=== PATIENT | female | born 1970 | race Caucasian/White ===

== ENCOUNTER → 2017-09-17 07:16 | Outpatient (CLI) | payer BC, SELFPAY ==
[2017-09-17 08:10] LABS: Absolute Lymphocyte Count 1.75 X10^3/ul (0.83-4.51); Absolute Neutrophil Count 1.8 X10^3/uL (2.0-7.7); Basophil# 0.07 X10^3/uL; Basophil% 1.5 % (0-1); Eosinophil# 0.59 X10^3/uL; Eosinophils% 12.6 % (0-5); Hematocrit 41.6 % (37-47); Lymphocyte # 1.75 X10^3/ul (4.0); Lymphocyte % 37.5 % (19-41); Mean Corp Hgb Conc 33.7 g/gl (32-36); Mean Corpuscular Hgb 29.5 pg (27.0-32.0); Mean Corpuscular Volume 87.8 fL (81-99); Mean Platelet Vol. 9.7 fl (6.2-12.0); Monocyte# 0.49 X10^3/uL; Monocyte% 10.5 % (0-10); Neutrophil # 1.76 X10^3/uL (2.7-7.7); Neutrophil % 37.7 % (47-70); POSITIVE COUNT NO; POSITIVE DIFFERENTIAL NO; POSITIVE MORPHOLOGY NO; Platelet Count 288 K/mm3 (150-450); RBC Distribution Width CV 12.5 % (11.6-14.6); RBC Distribution Width SD 40.2 fl (35.1-43.9); Red Blood Count 4.74 M/mm3 (4.2-5.4); White Blood Count 4.7 K/mm3 (4.4-11.0)
[2017-09-17 08:39] LABS: ALB/GLOB Ratio 0.9 RATIO (0.9-2.4); AST(SGOT) 11 U/L (15-37); Alanine Aminotransfer ALT/SGPT 22 U/L (12-78); Albumin, Serum 3.6 g/dL (3.4-5.0); Alkaline Phosphatase 73 U/L (45-117); Anion Gap 7 (5-15); BUN 14 mg/dL (7-18); BUN/Creat Ratio 18.2 RATIO (10-20); Calcium,Total 8.5 mg/dL (8.5-10.1); Chloride 102 mmol/L (98-107); Creatinine, Serum 0.77 mg/dL (0.55-1.02); EST Glomerular Filtration Rate 85 mL/min (>60); Est Glom Filt Rate - Afr Amer 103 mL/min (>60); Globulin 3.8 g/dL (2.2-4.2); Glucose 95 mg/dL (70-110); Potassium 3.9 mmol/L (3.5-5.1); Protein, Total 7.4 g/dL (6.4-8.2); Sodium Level 138 mmol/L (136-145)
[2017-09-17 08:46] LABS: Carbamazepine (Tegretol) 7.4 ug/mL (4.0-12.0)
== END ==
PROVIDERS: Family Provider Family Medicine; PCP Family Medicine; Visit Provider Psychiatry & Neurology Neurology
DX: G40.409 Other generalized epilepsy and epileptic syndromes, not intractable, without status epilepticus (principal)
CPT/HCPCS: 36415; 80053; 80156; 85025

== ENCOUNTER → 2017-09-27 16:08 | Outpatient (CLI) | payer BC, SELFPAY ==
[2017-09-30 14:46] LABS: HPV Reflexed? NOT INDICATED
== END ==
PROVIDERS: Family Provider Family Medicine; PCP Family Medicine; Visit Provider Family Medicine
DX: Z01.419 Encounter for gynecological examination (general) (routine) without abnormal findings (principal)
CPT/HCPCS: 88175; G0145

== ENCOUNTER → 2017-11-10 11:57 | Outpatient (CLI) | payer BC, SELFPAY ==
--- NOTE | 2017-11-10 11:59 | HPBI_ITS ---
MAMMOGRAPHY - BILATERAL SCREENING 3-D RAFAELA SYNTHESIS REASON FOR EXAM: Female, 47 years old. Bilateral Screening 3-D tomosynthesis PERTINENT HISTORY: No significant family history. TECHNIQUE: 2-D mammograms and 3-D Rafaela synthesis of the breast (s) were performed. CAD was performed. COMPARISON: 09/21/2016 FINDINGS: The breast composition is heterogeneously dense that can obscure small breast masses. Scattered benign calcifications are seen. No dense spiculated masses or suspicious microcalcifications are identified. No architectural distortion is identified. There is no skin thickening or retraction. There has been no significant change since the prior study. HPBI/SCREENING MAMM (CAD), BILAT IMPRESSION: No mammographic signs of malignancy. Routine yearly mammograms recommended. ASSESSMENT CATEGORY: BIRADS Category 2: Benign. A letter regarding these results will be sent to the patient by the facility within 30 days. FOLLOW UP RECOMMENDATION: Yearly follow up mammogram recommended. (A) Approximately 10% of breast cancers are not detected by mammography. A normal mammogram should not delay biopsy of a clinically suspicious abnormality. Electronically Signed: Gilberto Shultz MD at 7:53 EDT , Service support ,
== END ==
PROVIDERS: Family Provider Family Medicine; PCP Family Medicine; Visit Provider Family Medicine
DX: Z12.31 Encounter for screening mammogram for malignant neoplasm of breast (principal)
CPT/HCPCS: 77063; 77067

== ENCOUNTER → 2018-10-21 07:44 | Outpatient (CLI) | payer BC, SELFPAY ==
[2018-10-21 08:43] LABS: Absolute Neutrophil Count 2.3 X10^3/uL (2.0-7.7); Basophil# 0.06 X10^3/uL; Basophil% 1.2 % (0-1); Eosinophil# 0.46 X10^3/uL; Eosinophils% 9.2 % (0-5); Hematocrit 42.4 % (37-47); Lymphocyte % 34.1 % (19-41); Mean Platelet Vol. 9.9 fl (6.2-12.0); Monocyte# 0.48 X10^3/uL; Monocyte% 9.6 % (0-10); Neutrophil # 2.27 X10^3/uL (2.7-7.7); Neutrophil % 45.7 % (47-70); Platelet Count 308 K/mm3 (150-450); RBC Distribution Width CV 12.8 % (11.6-14.6); RBC Distribution Width SD 41.3 fl (35.1-43.9); Red Blood Count 4.82 M/mm3 (4.2-5.4)
[2018-10-21 08:45] LABS: POSITIVE COUNT NO; POSITIVE DIFFERENTIAL NO; POSITIVE MORPHOLOGY NO
[2018-10-21 08:53] LABS: Carbamazepine (Tegretol) 7.9 ug/mL (4.0-12.0)
[2018-10-21 09:05] LABS: AST(SGOT) 14 U/L (15-37); Alanine Aminotransfer ALT/SGPT 20 U/L (13-56); Albumin, Serum 3.5 g/dL (3.2-5.0); Alkaline Phosphatase 79 U/L (45-117); Anion Gap 8 (5-15); BUN 12 mg/dL (7-18); BUN/Creat Ratio 15.4 RATIO (10-20); Calcium,Total 8.4 mg/dL (8.5-10.1); Chloride 105 mmol/L (98-107); Creatinine, Serum 0.78 mg/dL (0.55-1.02); EST Glomerular Filtration Rate 83 mL/min (>60); Est Glom Filt Rate - Afr Amer 101 mL/min (>60); Globulin 3.5 g/dL (2.2-4.2); Glucose 95 mg/dL (74-106); Potassium 3.9 mmol/L (3.5-5.1); Sodium Level 139 mmol/L (136-145)
== END ==
PROVIDERS: Family Provider Family Medicine; PCP Family Medicine; Referring Provider Psychiatry & Neurology Neurology; Visit Provider Psychiatry & Neurology Neurology
DX: G40.309 Generalized idiopathic epilepsy and epileptic syndromes, not intractable, without status epilepticus (principal)
CPT/HCPCS: 36415; 80053; 80156; 85025

== ENCOUNTER → 2018-12-15 12:34 | Outpatient (CLI) | payer BC, SELFPAY ==
--- NOTE | 2018-12-15 12:37 | BI_ITS ---
MAMMOGRAPHY - BILATERAL SCREENING 3-D TOMOSYNTHESIS REASON FOR EXAM: Female, 48 years old. Bilateral Screening 3-D tomosynthesis PERTINENT HISTORY: No significant family history. TECHNIQUE: 2-D mammograms and 3-D Tomosynthesis of the breast (s) were performed. CAD was performed. COMPARISON: 11/10/2017 FINDINGS: The breast composition is composed of scattered fibroglandular density. Scattered benign calcifications are seen. No dense spiculated masses or suspicious microcalcifications are identified. No architectural distortion is identified. There is no skin thickening or retraction. There has been no significant change since the prior study. BI/SCREENING MAMM (CAD), BILAT IMPRESSION: No mammographic signs of malignancy. Routine yearly mammograms recommended. ASSESSMENT CATEGORY: BIRADS Category 2: Benign. A letter regarding these results will be sent to the patient by the facility within 30 days. FOLLOW UP RECOMMENDATION: Yearly follow up mammogram recommended. (A) Approximately 10% of breast cancers are not detected by mammography. A normal mammogram should not delay biopsy of a clinically suspicious abnormality. Electronically Signed: Gilberto Shultz MD at 14:01 EDT , Service support ,
== END ==
PROVIDERS: Family Provider Family Medicine; PCP Family Medicine; Referring Provider Family Medicine; Visit Provider Family Medicine
DX: Z12.31 Encounter for screening mammogram for malignant neoplasm of breast (principal)
CPT/HCPCS: 77063; 77067

== ENCOUNTER → 2019-01-29 15:37 | Outpatient (CLI) | payer BC, SELFPAY ==
--- NOTE | 2019-01-26 10:40 | COLBX_PTH ---
PATIENT: DUNCAN COY LOC: [facility] U#:[id number] AGE/SX: 54/F ROOM: RE01/29/[address]: Dr. Greg Deng MD : 1970 BED: DIS: SPEC #: [id number] RECD: 01/29/19 15:28 STATUS: LINDSEY CHIDI #: [id number] MELIDA: 01/26/19 10:[address]: Greg Deng DEPT: SURGICAL PATHOLOGY RECD BY: Hema Davis ENTERED: 01/30/19 09:23 SP TYPE: COLON BX OTHR DR: Dr. Camilo Stover MD [facility] Tissues: Cecum, NOS Procedures: Surgery Specimen Level IV HEADER OPERATION: Colonoscopy with polypectomy PRE-OP DIAGNOSIS: Screening / polyp TISSUE SUBMITTED: Cecum polyp, rule out adenoma MICROSCOPIC DIAGNOSIS Cecal polyp, biopsy: Tubular adenoma. AM:yolette 01/31/19 MICROSCOPIC DESCRIPTION Slides are reviewed. GROSS DESCRIPTION Received in fixative is one container labeled with the patient's name and designated cecum polyp. The specimen consists of one irregular fragment of light freeman soft tissue that measures 0.5 x 0.3 x 0.2 cm. Also present in the container are multiple fragments of fecal material. The entire specimen is submitted in one cassette. / SJ:rg 01/30/19 TC:5 CPT: 65668
== END ==
PROVIDERS: Family Provider Family Medicine; PCP Family Medicine; Referring Provider Internal Medicine Gastroenterology; Visit Provider Internal Medicine Gastroenterology
DX: K63.5 Polyp of colon (principal)
CPT/HCPCS: 88305

== ENCOUNTER → 2019-09-29 07:15 | Outpatient (CLI) | payer BC, SELFPAY ==
[2019-09-29 07:57] LABS: Absolute Lymphocyte Count 1.86 X10^3/uL (0.83-4.51); Absolute Neutrophil Count 2.2 X10^3/uL (2.0-7.7); Basophil# 0.09 X10^3/uL; Basophil% 1.7 % (0-1); Eosinophil# 0.63 X10^3/uL; Eosinophils% 11.9 % (0-5); Hemoglobin 14.6 g/dL (12.0-15.0); Lymphocyte # 1.86 X10^3/ul (4.0); Lymphocyte % 35.2 % (19-41); Mean Corp Hgb Conc 33.2 g/dL (32-36); Mean Corpuscular Hgb 28.8 pg (27.0-32.0); Mean Corpuscular Volume 86.8 fL (81-99); Mean Platelet Vol. 9.4 fl (6.2-12.0); Monocyte% 9.5 % (0-10); NRBC Flagged by Analyzer 0 % (0-5); Neutrophil # 2.19 X10^3/uL (2.7-7.7); Neutrophil % 41.5 % (47-70); Platelet Count 304 K/mm3 (150-450); RBC Distribution Width CV 12.3 % (11.6-14.6); RBC Distribution Width SD 39.1 fl (35.1-43.9); Red Blood Count 5.07 M/mm3 (4.2-5.4); White Blood Count 5.3 K/mm3 (4.4-11.0)
[2019-09-29 08:29] LABS: Carbamazepine (Tegretol) 8.3 ug/mL (4.0-12.0)
[2019-09-29 08:30] LABS: ALB/GLOB Ratio 0.9 RATIO (0.9-2.4); AST(SGOT) 11 U/L (15-37); Alanine Aminotransfer ALT/SGPT 23 U/L (13-56); Albumin, Serum 3.7 g/dL (3.2-5.0); Alkaline Phosphatase 82 U/L (45-117); Anion Gap 2 (5-15); BUN 13 mg/dL (7-18); BUN/Creat Ratio 14.5 RATIO (10-20); Chloride 106 mmol/L (98-107); EST Glomerular Filtration Rate 71 mL/min (>60); Est Glom Filt Rate - Afr Amer 85 mL/min (>60); Globulin 3.9 g/dL (2.2-4.2); Glucose 91 mg/dL (74-106); Potassium 3.9 mmol/L (3.5-5.1); Protein, Total 7.6 g/dL (6.4-8.2); Sodium Level 137 mmol/L (136-145)
== END ==
PROVIDERS: PCP Family Medicine; Referring Provider Psychiatry & Neurology Neurology; Visit Provider Psychiatry & Neurology Neurology
DX: G40.309 Generalized idiopathic epilepsy and epileptic syndromes, not intractable, without status epilepticus (principal)
CPT/HCPCS: 36415; 80053; 80156; 85025

== ENCOUNTER → 2020-02-13 15:33 | Outpatient (CLI) | payer BC, SELFPAY ==
--- NOTE | 2020-02-13 15:36 | BI_ITS ---
MAMMOGRAPHY - BILATERAL SCREENING 3-D TOMOSYNTHESIS REASON FOR EXAM: Female, 49 years old. Routine screening PERTINENT HISTORY: FAM HX MOTHER AGE 65, PAT GMA -- NO SX -- BILAT SKIN TAGS ,MARKED. TECHNIQUE: 2-D mammograms and 3-D Tomosynthesis of the breast (s) were performed. CAD was performed. COMPARISON: 04/16/2019 FINDINGS: The breast composition is composed of scattered fibroglandular density. Scattered benign calcifications are seen. No dense spiculated masses or suspicious microcalcifications are identified. No architectural distortion is identified. There is no skin thickening or retraction. There has been no significant change since the prior study. BI/SCREEN MAMM (CAD) W/RAFAELA BILAT IMPRESSION: No mammographic signs of malignancy. Routine yearly mammograms recommended. ASSESSMENT CATEGORY: BIRADS Category 2: Benign. A letter regarding these results will be sent to the patient by the facility within 30 days. FOLLOW UP RECOMMENDATION: Yearly follow up mammogram recommended. (A) Approximately 10% of breast cancers are not detected by mammography. A normal mammogram should not delay biopsy of a clinically suspicious abnormality. Electronically Signed: Gilberto Shultz MD at 7:54 EDT , Service support ,
== END ==
PROVIDERS: PCP Family Medicine; Referring Provider Family Medicine; Visit Provider Family Medicine
DX: Z12.31 Encounter for screening mammogram for malignant neoplasm of breast (principal)
CPT/HCPCS: 77063; 77067

== ENCOUNTER → 2020-02-16 07:21 | Outpatient (CLI) | payer BC, SELFPAY ==
[2020-02-16 08:22] LABS: Cholesterol 283 mg/dL (200); High Density Lipoprotein 85 mg/dL; Triglycerides 69 mg/dL; Very Low Density Lipoprotein 14 mg/dL (5-40)
== END ==
PROVIDERS: PCP Family Medicine; Referring Provider Family Medicine; Visit Provider Family Medicine
DX: E78.00 Pure hypercholesterolemia, unspecified (principal)
CPT/HCPCS: 36415; 80061

== ENCOUNTER → 2020-07-18 14:43 | Outpatient (CLI) | payer BC, SELFPAY | PROVIDERS: PCP Family Medicine; Referring Provider Family Medicine; Visit Provider Family Medicine | DX: U07.1 COVID-19 (principal) | CPT/HCPCS: 87635; U0003 ==

== ENCOUNTER → 2020-09-27 07:31 | Outpatient (CLI) | payer OTHER, SELFPAY ==
[2020-09-27 08:03] LABS: Absolute Lymphocyte Count 1.91 X10^3/uL (0.83-4.51); Absolute Neutrophil Count 2.3 X10^3/uL (2.0-7.7); Basophil# 0.08 X10^3/uL; Basophil% 1.6 % (0-1); Eosinophils% 7.8 % (0-5); Hematocrit 44.4 % (37-47); Hemoglobin 14.6 g/dL (12.0-15.0); Lymphocyte # 1.91 X10^3/ul (4.0); Mean Corp Hgb Conc 32.9 g/dL (32-36); Mean Corpuscular Hgb 28.8 pg (27.0-32.0); Mean Corpuscular Volume 87.6 fL (81-99); Mean Platelet Vol. 9.3 fl (6.2-12.0); Monocyte# 0.47 X10^3/uL; Monocyte% 9.1 % (0-10); NRBC Flagged by Analyzer 0 % (0-5); Neutrophil # 2.29 X10^3/uL (2.7-7.7); Neutrophil % 44.3 % (47-70); Platelet Count 331 K/mm3 (150-450); RBC Distribution Width CV 12.6 % (11.6-14.6); RBC Distribution Width SD 40.5 fl (35.1-43.9); Red Blood Count 5.07 M/mm3 (4.2-5.4); White Blood Count 5.2 K/mm3 (4.4-11.0)
[2020-09-27 08:30] LABS: ALB/GLOB Ratio 0.9 RATIO (0.9-2.4); AST(SGOT) 13 U/L (15-37); Alanine Aminotransfer ALT/SGPT 25 U/L (13-56); Albumin, Serum 3.6 g/dL (3.2-5.0); Alkaline Phosphatase 85 U/L (45-117); Anion Gap 3 (5-15); BUN 16 mg/dL (7-18); Calcium,Total 8.9 mg/dL (8.5-10.1); Chloride 103 mmol/L (98-107); Creatinine, Serum 0.94 mg/dL (0.55-1.02); EST Glomerular Filtration Rate 67 mL/min (>60); Est Glom Filt Rate - Afr Amer 81 mL/min (>60); Glucose 92 mg/dL (74-106); Potassium 4.1 mmol/L (3.5-5.1); Protein, Total 7.6 g/dL (6.4-8.2); Sodium Level 137 mmol/L (136-145)
== END ==
PROVIDERS: PCP Family Medicine
DX: G40.909 Epilepsy, unspecified, not intractable, without status epilepticus (principal)
CPT/HCPCS: 36415; 80053; 85025

== ENCOUNTER → 2021-02-28 07:09 | Outpatient (CLI) | payer OTHER, SELFPAY ==
[2021-02-28 07:44] LABS: Absolute Lymphocyte Count 2.32 X10^3/uL (0.83-4.51); Absolute Neutrophil Count 1.8 X10^3/uL (2.0-7.7); Basophil# 0.08 X10^3/uL; Basophil% 1.5 % (0-1); Eosinophils% 9.6 % (0-5); Hematocrit 42.7 % (37-47); Hemoglobin 14.4 g/dL (12.0-15.0); Lymphocyte # 2.32 X10^3/ul (0.83-4.51); Lymphocyte % 44.7 % (19-41); Mean Corp Hgb Conc 33.7 g/dL (32-36); Mean Corpuscular Hgb 29.2 pg (27.0-32.0); Mean Corpuscular Volume 86.6 fL (81-99); Mean Platelet Vol. 9.4 fl (6.2-12.0); Monocyte# 0.52 X10^3/uL; NRBC Flagged by Analyzer 0 % (0-5); Neutrophil # 1.76 X10^3/uL (2.7-7.7); Platelet Count 322 K/mm3 (150-450); RBC Distribution Width CV 12.1 % (11.6-14.6); RBC Distribution Width SD 38.7 fl (35.1-43.9); Red Blood Count 4.93 M/mm3 (4.2-5.4); White Blood Count 5.2 K/mm3 (4.4-11.0)
[2021-02-28 07:59] LABS: ALB/GLOB Ratio 0.9 RATIO (0.9-2.4); AST(SGOT) 15 U/L (15-37); Alanine Aminotransfer ALT/SGPT 21 U/L (13-56); Albumin, Serum 3.5 g/dL (3.2-5.0); Alkaline Phosphatase 81 U/L (45-117); Anion Gap 6 (5-15); BUN 17 mg/dL (7-18); BUN/Creat Ratio 21.5 RATIO (10-20); Calcium,Total 8.8 mg/dL (8.5-10.1); Chloride 105 mmol/L (98-107); Cholesterol 302 mg/dL (200); Creatinine, Serum 0.79 mg/dL (0.55-1.02); EST Glomerular Filtration Rate 81 mL/min (>60); Est Glom Filt Rate - Afr Amer 98 mL/min (>60); Globulin 3.8 g/dL (2.2-4.2); Glucose 93 mg/dL (74-106); High Density Lipoprotein 92 mg/dL; Potassium 3.9 mmol/L (3.5-5.1); Protein, Total 7.3 g/dL (6.4-8.2); Sodium Level 138 mmol/L (136-145); Triglycerides 74 mg/dL; Very Low Density Lipoprotein 15 mg/dL (5-40)
== END ==
PROVIDERS: PCP Family Medicine; Referring Provider Family Medicine; Visit Provider Family Medicine
DX: E78.00 Pure hypercholesterolemia, unspecified (principal)
CPT/HCPCS: 36415; 80053; 80061; 85025

== ENCOUNTER → 2021-03-17 17:45 | Outpatient (CLI) | payer OTHER, SELFPAY ==
[2021-03-25 13:41] LABS: HPV HC, High Risk Negative
== END ==
PROVIDERS: Visit Provider Family Medicine
DX: Z12.4 Encounter for screening for malignant neoplasm of cervix (principal)
CPT/HCPCS: 87624; 88175; G0145

== ENCOUNTER → 2021-04-02 15:26 | Outpatient (CLI) | payer OTHER, SELFPAY ==
--- NOTE | 2021-04-02 15:39 | BI_ITS ---
MAMMOGRAPHY - BILATERAL SCREENING REASON FOR EXAM: Female, 50 years old. Routine annual screening examination. PERTINENT HISTORY: Mother with breast cancer. Grandmother with breast cancer. TECHNIQUE: Digital bilateral breast rafaela (3D mammographic acquisition) in the CC and MLO projections. 2-D mediolateral oblique (MLO) and craniocaudad (CC) views of both breasts were obtained. CAD: Full Field Digital Mammography with Computer Added Detection was performed. COMPARISON: Comparison is made with prior study dated 02/13/2020 and 12/15/2018 FINDINGS: Breast Composition: There are scattered areas of fibroglandular density. There are no dominant masses or suspicious calcifications. No other significant abnormalities are identified. There has been no significant change since the prior study. BI/SCRN MAMM (CAD)W/RAFAELA BILAT IMPRESSION: Stable bilateral screening mammogram. Yearly follow-up mammogram recommended. (A) ASSESSMENT CATEGORY: BIRADS Category 1: Negative. A letter regarding these results will be sent to the patient by the facility within 30 days. Approximately 10% of breast cancers are not detected by mammography. A normal mammogram should not delay biopsy of a clinically suspicious abnormality. [id number] Electronically Signed: Burke Hoffmann MD at 8:56 EDT , Service support ,
== END ==
PROVIDERS: PCP Family Medicine; Referring Provider Family Medicine; Visit Provider Family Medicine
DX: Z12.31 Encounter for screening mammogram for malignant neoplasm of breast (principal); Z80.3 Family history of malignant neoplasm of breast
CPT/HCPCS: 77063; 77067

== ENCOUNTER 2021-10-17 07:04 | Outpatient (CLI) | payer BC, SELFPAY ==
[2021-10-17 07:58] LABS: Absolute Lymphocyte Count 1.96 X10^3/uL (0.83-4.51); Basophil# 0.08 X10^3/uL; Basophil% 1.7 % (0-1); Eosinophil# 0.39 X10^3/uL; Eosinophils% 8.1 % (0-5); Hematocrit 43.5 % (37-47); Lymphocyte # 1.96 X10^3/ul (0.83-4.51); Lymphocyte % 40.7 % (19-41); Mean Corp Hgb Conc 34.5 g/dL (32-36); Mean Corpuscular Hgb 29.8 pg (27.0-32.0); Mean Corpuscular Volume 86.3 fL (81-99); Mean Platelet Vol. 9.6 fl (6.2-12.0); Monocyte# 0.39 X10^3/uL; Monocyte% 8.1 % (0-10); NRBC Flagged by Analyzer 0 % (0-5); Neutrophil # 1.98 X10^3/uL (2.7-7.7); Neutrophil % 41.2 % (47-70); Platelet Count 348 K/mm3 (150-450); RBC Distribution Width CV 12.2 % (11.6-14.6); RBC Distribution Width SD 38.3 fl (35.1-43.9); Red Blood Count 5.04 M/mm3 (4.2-5.4); White Blood Count 4.8 K/mm3 (4.4-11.0)
[2021-10-17 08:20] LABS: ALB/GLOB Ratio 0.9 RATIO (0.9-2.4); AST(SGOT) 15 U/L (15-37); Alanine Aminotransfer ALT/SGPT 24 U/L (13-56); Albumin, Serum 3.5 g/dL (3.2-5.0); Alkaline Phosphatase 84 U/L (45-117); Anion Gap 2 (5-15); BUN 16 mg/dL (7-18); BUN/Creat Ratio 19.9 RATIO (10-20); Calcium,Total 8.8 mg/dL (8.5-10.1); Chloride 103 mmol/L (98-107); EST Glomerular Filtration Rate 79 mL/min (>60); Est Glom Filt Rate - Afr Amer 96 mL/min (>60); Globulin 3.9 g/dL (2.2-4.2); Glucose 103 mg/dL (74-106); Potassium 3.8 mmol/L (3.5-5.1); Protein, Total 7.4 g/dL (6.4-8.2); Sodium Level 139 mmol/L (136-145)
== END 2021-10-17 23:59 | disposition home or self-care (01) ==
LOC: LAB 07:09
PROVIDERS: PCP Family Medicine; Referring Provider Psychiatry & Neurology Neurology; Visit Provider Psychiatry & Neurology Neurology
DX: G40.309 Generalized idiopathic epilepsy and epileptic syndromes, not intractable, without status epilepticus (principal)
CPT/HCPCS: 36415; 80053; 80156; 85025

== ENCOUNTER → 2022-03-13 | Outpatient (CLI) | payer BC, SELFPAY ==
[2022-03-13 07:54] LABS: Absolute Lymphocyte Count 2.04 X10^3/uL (0.83-4.51); Absolute Neutrophil Count 1.7 X10^3/uL (2.0-7.7); Basophil# 0.08 X10^3/uL; Basophil% 1.7 % (0-1); Eosinophil# 0.45 X10^3/uL; Eosinophils% 9.7 % (0-5); Hematocrit 42.9 % (37-47); Hemoglobin 14.2 g/dL (12.0-15.0); Lymphocyte # 2.04 X10^3/ul (0.83-4.51); Mean Corp Hgb Conc 33.1 g/dL (32-36); Mean Corpuscular Hgb 29.2 pg (27.0-32.0); Mean Corpuscular Volume 88.1 fL (81-99); Mean Platelet Vol. 9.6 fl (6.2-12.0); Monocyte# 0.35 X10^3/uL; Monocyte% 7.5 % (0-10); NRBC Flagged by Analyzer 0 % (0-5); Neutrophil # 1.71 X10^3/uL (2.7-7.7); Neutrophil % 36.9 % (47-70); Platelet Count 317 K/mm3 (150-450); RBC Distribution Width CV 12.3 % (11.6-14.6); RBC Distribution Width SD 39.9 fl (35.1-43.9); Red Blood Count 4.87 M/mm3 (4.2-5.4); White Blood Count 4.6 K/mm3 (4.4-11.0)
[2022-03-13 08:10] LABS: Hemoglobin A1c 5.4 % (3.8-5.6)
[2022-03-13 08:20] LABS: ALB/GLOB Ratio 0.9 RATIO (0.9-2.4); AST(SGOT) 13 U/L (15-37); Alanine Aminotransfer ALT/SGPT 22 U/L (13-56); Albumin, Serum 3.4 g/dL (3.2-5.0); Alkaline Phosphatase 75 U/L (45-117); Anion Gap 6 (5-15); BUN 18 mg/dL (7-18); BUN/Creat Ratio 24.7 RATIO (10-20); Calcium,Total 8.8 mg/dL (8.5-10.1); Chloride 105 mmol/L (98-107); Cholesterol 283 mg/dL (200); Creatinine, Serum 0.73 mg/dL (0.55-1.02); EST Glomerular Filtration Rate 89 mL/min (>60); Est Glom Filt Rate - Afr Amer 107 mL/min (>60); Globulin 3.7 g/dL (2.2-4.2); Glucose 96 mg/dL (74-106); High Density Lipoprotein 82 mg/dL; Protein, Total 7.1 g/dL (6.4-8.2); Sodium Level 139 mmol/L (136-145); Thyroid Stim Hormone (TSH) 1.58 uIU/mL (0.358-3.74); Triglycerides 72 mg/dL; Very Low Density Lipoprotein 14 mg/dL (5-40)
== END | disposition home or self-care (01) ==
LOC: LAB 07:05
PROVIDERS: PCP Family Medicine; Visit Provider Family Medicine
DX: E78.00 Pure hypercholesterolemia, unspecified (principal)
CPT/HCPCS: 36415; 80053; 80061; 83036; 84443; 85025

== ENCOUNTER → 2022-04-05 | Outpatient (CLI) | payer BC, SELFPAY ==
--- NOTE | 2022-04-05 15:45 | BI_ITS ---
MAMMOGRAPHY - BILATERAL SCREENING 3-D TOMOSYNTHESIS REASON FOR EXAM: Female, 51 years old. SCREENING PERTINENT HISTORY: No significant family history. TECHNIQUE: 2-D mammograms and 3-D Tomosynthesis of the breast (s) were performed. CAD was performed. COMPARISON: 04/02/2021 FINDINGS: The breast composition is heterogeneously dense that can obscure small breast masses. Scattered benign calcifications are seen. No dense spiculated masses or suspicious microcalcifications are identified. No architectural distortion is identified. There is no skin thickening or retraction. There has been no significant change since the prior study. BI/SCRN MAMM (CAD)W/RAFAELA BILAT IMPRESSION: No mammographic signs of malignancy. Routine yearly mammograms recommended. ASSESSMENT CATEGORY: BIRADS Category 1: Negative. A letter regarding these results will be sent to the patient by the facility within 30 days. FOLLOW UP RECOMMENDATION: Yearly follow up mammogram recommended. (A) Approximately 10% of breast cancers are not detected by mammography. A normal mammogram should not delay biopsy of a clinically suspicious abnormality. Electronically Signed: Everardo Penaloza MD at 16:36 EDT ,
== END | disposition home or self-care (01) ==
LOC: OPBI 04-06 06:54
PROVIDERS: PCP Family Medicine; Visit Provider Family Medicine
DX: Z12.31 Encounter for screening mammogram for malignant neoplasm of breast (principal)
CPT/HCPCS: 77063; 77067

== ENCOUNTER → 2022-09-03 | Outpatient (CLI) | payer BC, SELFPAY ==
[2022-09-03 08:11] LABS: Absolute Lymphocyte Count 2.11 X10^3/uL (0.83-4.51); Absolute Neutrophil Count 2.4 X10^3/uL (2.0-7.7); Basophil# 0.11 X10^3/uL; Basophil% 1.9 % (0-1); Eosinophil# 0.57 X10^3/uL; Eosinophils% 9.9 % (0-5); Hematocrit 44.6 % (37-47); Hemoglobin 14.8 g/dL (12.0-15.0); Lymphocyte # 2.11 X10^3/ul (0.83-4.51); Lymphocyte % 36.5 % (19-41); Mean Corp Hgb Conc 33.2 g/dL (32-36); Mean Corpuscular Hgb 29.2 pg (27.0-32.0); Mean Platelet Vol. 9.5 fl (6.2-12.0); Monocyte# 0.57 X10^3/uL; Monocyte% 9.9 % (0-10); NRBC Flagged by Analyzer 0 % (0-5); Neutrophil # 2.41 X10^3/uL (2.7-7.7); Neutrophil % 41.6 % (47-70); Platelet Count 346 K/mm3 (150-450); RBC Distribution Width CV 12.3 % (11.6-14.6); RBC Distribution Width SD 39.5 fl (35.1-43.9); Red Blood Count 5.07 M/mm3 (4.2-5.4); White Blood Count 5.8 K/mm3 (4.4-11.0)
[2022-09-03 08:33] LABS: ALB/GLOB Ratio 0.9 RATIO (0.9-2.4); AST(SGOT) 14 U/L (15-37); Alanine Aminotransfer ALT/SGPT 23 U/L (13-56); Albumin, Serum 3.5 g/dL (3.2-5.0); Alkaline Phosphatase 83 U/L (45-117); Anion Gap 2 (5-15); BUN 13 mg/dL (7-18); BUN/Creat Ratio 18.8 RATIO (10-20); Chloride 105 mmol/L (98-107); Cholesterol 300 mg/dL (200); Creatinine, Serum 0.69 mg/dL (0.55-1.02); EST Glomerular Filtration Rate 94 mL/min (>60); Est Glom Filt Rate - Afr Amer 114 mL/min (>60); Globulin 3.9 g/dL (2.2-4.2); Glucose 93 mg/dL (74-106); High Density Lipoprotein 94 mg/dL; Protein, Total 7.4 g/dL (6.4-8.2); Sodium Level 138 mmol/L (136-145); Triglycerides 66 mg/dL; Very Low Density Lipoprotein 13 mg/dL (5-40)
== END | disposition home or self-care (01) ==
PROVIDERS: Family Medicine; PCP Family Medicine; Referring Provider Psychiatry & Neurology Neurology; Visit Provider Psychiatry & Neurology Neurology
DX: G40.909 Epilepsy, unspecified, not intractable, without status epilepticus (principal); E78.2 Mixed hyperlipidemia
CPT/HCPCS: 36415; 80053; 80061; 85025

== ENCOUNTER → 2023-03-15 | Outpatient (CLI) | payer BC, SELFPAY ==
[2023-03-15 08:24] LABS: Cholesterol 312 mg/dL (200); High Density Lipoprotein 97 mg/dL; Triglycerides 79 mg/dL; Very Low Density Lipoprotein 16 mg/dL (5-40)
== END | disposition home or self-care (01) ==
PROVIDERS: PCP Family Medicine; Referring Provider Family Medicine; Visit Provider Family Medicine
DX: E78.00 Pure hypercholesterolemia, unspecified (principal)
CPT/HCPCS: 36415; 80061

== ENCOUNTER → 2023-04-06 | Outpatient (CLI) | payer BC, SELFPAY ==
--- NOTE | 2023-04-06 07:09 | BI_ITS ---
MAMMOGRAPHY - BILATERAL SCREENING REASON FOR EXAM: Female, 52 years old. Routine annual screening examination. PERTINENT HISTORY: Mother with breast cancer. Grandmother with breast cancer. TECHNIQUE: Digital bilateral breast rafaela (3D mammographic acquisition) in the CC and MLO projections. 2-D mediolateral oblique (MLO) and craniocaudad (CC) views of both breasts were obtained. CAD: Full Field Digital Mammography with Computer Added Detection was performed. COMPARISON: Comparison is made with prior study April 05, 2022 and April 02, 2021. FINDINGS: Breast Composition: The breasts are heterogeneously dense, which may obscure small masses. There are no dominant masses or suspicious calcifications. No other significant abnormalities are identified. There has been no significant change since the prior study. BI/SCRN MAMM (CAD)W/RAFAELA BILAT IMPRESSION: Stable bilateral screening mammogram. Yearly follow-up mammogram recommended. (A) ASSESSMENT CATEGORY: BIRADS Category 1: Negative. A letter regarding these results will be sent to the patient by the facility within 30 days. Approximately 10% of breast cancers are not detected by mammography. A normal mammogram should not delay biopsy of a clinically suspicious abnormality. [id number] Electronically Signed: Burke Hoffmann MD at 8:31 EDT ,
== END | disposition home or self-care (01) ==
LOC: OPBI 07:02
PROVIDERS: PCP Family Medicine; Referring Provider Family Medicine; Visit Provider Family Medicine
DX: Z12.31 Encounter for screening mammogram for malignant neoplasm of breast (principal); Z80.3 Family history of malignant neoplasm of breast
CPT/HCPCS: 77063; 77067

== ENCOUNTER → 2023-10-22 | Outpatient (CLI) | payer BC, SELFPAY ==
[2023-10-22 08:20] LABS: Absolute Neutrophil Count 1.6 X10^3/uL (2.0-7.7); Basophil% 2.4 % (0-1); Eosinophil# 0.43 X10^3/uL; Eosinophils% 10.2 % (0-5); Hematocrit 42.3 % (37-47); Hemoglobin 14.3 g/dL (12.0-15.0); Lymphocyte % 37.8 % (19-41); Mean Corp Hgb Conc 33.8 g/dL (32-36); Mean Corpuscular Hgb 29.4 pg (27.0-32.0); Mean Platelet Vol. 9.4 fl (6.2-12.0); Monocyte# 0.45 X10^3/uL; Monocyte% 10.6 % (0-10); NRBC Flagged by Analyzer 0 % (0-5); Neutrophil # 1.64 X10^3/uL (2.7-7.7); Neutrophil % 38.8 % (47-70); Platelet Count 305 K/mm3 (150-450); RBC Distribution Width CV 12.3 % (11.6-14.6); RBC Distribution Width SD 39.4 fl (35.1-43.9); Red Blood Count 4.86 M/mm3 (4.2-5.4); White Blood Count 4.2 K/mm3 (4.4-11.0)
[2023-10-22 08:36] LABS: AST(SGOT) 14 U/L (15-37); Alanine Aminotransfer ALT/SGPT 22 U/L (13-56); Albumin, Serum 3.6 g/dL (3.2-5.0); Alkaline Phosphatase 81 U/L (45-117); Anion Gap 2 (5-15); BUN 17 mg/dL (7-18); BUN/Creat Ratio 22.9 RATIO (10-20); Calcium,Total 9.2 mg/dL (8.5-10.1); Chloride 106 mmol/L (98-107); Creatinine, Serum 0.74 mg/dL (0.55-1.02); EST Glomerular Filtration Rate 87 mL/min (>60); Est Glom Filt Rate - Afr Amer 105 mL/min (>60); Globulin 3.7 g/dL (2.2-4.2); Glucose 91 mg/dL (74-106); Potassium 3.9 mmol/L (3.5-5.1); Protein, Total 7.3 g/dL (6.4-8.2); Sodium Level 137 mmol/L (136-145)
[2023-10-22 09:57] LABS: Carbamazepine (Tegretol) 6.7 ug/mL (4.0-12.0)
== END | disposition home or self-care (01) ==
LOC: LAB 07:09
PROVIDERS: PCP Family Medicine; Referring Provider Psychiatry & Neurology Neurology; Visit Provider Psychiatry & Neurology Neurology
DX: G40.909 Epilepsy, unspecified, not intractable, without status epilepticus (principal)
CPT/HCPCS: 36415; 80053; 80156; 85025

== ENCOUNTER → 2024-03-23 | Outpatient (CLI) | payer BC, SELFPAY ==
[2024-03-23 08:20] LABS: Hematocrit 43.7 % (37-47); Hemoglobin 14.8 g/dL (12.0-15.0); Mean Corp Hgb Conc 33.9 g/dL (32-36); Mean Corpuscular Hgb 29.5 pg (27.0-32.0); Mean Corpuscular Volume 87.1 fL (81-99); Mean Platelet Vol. 9.8 fl (6.2-12.0); Platelet Count 318 K/mm3 (150-450); RBC Distribution Width CV 12.3 % (11.6-14.6); RBC Distribution Width SD 39.3 fl (35.1-43.9); Red Blood Count 5.02 M/mm3 (4.2-5.4); White Blood Count 3.7 K/mm3 (4.4-11.0)
[2024-03-23 08:31] LABS: Vitamin D,25 Hydroxy 62.3 ng/mL
[2024-03-23 08:38] LABS: Anion Gap 3 (5-15); BUN 14 mg/dL (7-18); BUN/Creat Ratio 17.9 RATIO (10-20); Calcium,Total 9.1 mg/dL (8.5-10.1); Chloride 106 mmol/L (98-107); Cholesterol 292 mg/dL (200); Creatinine, Serum 0.78 mg/dL (0.55-1.02); EST Glomerular Filtration Rate 81 mL/min (>60); Est Glom Filt Rate - Afr Amer 98 mL/min (>60); Glucose 98 mg/dL (74-106); High Density Lipoprotein 84 mg/dL; Potassium 4.2 mmol/L (3.5-5.1); Sodium Level 139 mmol/L (136-145); Thyroid Stim Hormone (TSH) 1.59 uIU/mL (0.358-3.74); Triglycerides 80 mg/dL; Very Low Density Lipoprotein 16 mg/dL (5-40)
== END | disposition home or self-care (01) ==
PROVIDERS: PCP Family Medicine; Referring Provider Family Medicine; Visit Provider Family Medicine
DX: E78.2 Mixed hyperlipidemia (principal)
CPT/HCPCS: 36415; 80048; 80061; 82306; 84443; 85027

== ENCOUNTER → 2024-04-19 | Outpatient (CLI) | payer BC, SELFPAY ==
--- NOTE | 2024-04-19 10:09 | RAD_ITS ---
INDICATION: Low back injury EXAMINATION/TECHNIQUE: X-RAY - XR Spine Lumbar 2 or 3 Views COMPARISON: None. FINDINGS: VERTEBRAE: Preserved vertebral body height. No fracture. No spondylolisthesis. Preservation of the normal lumbar lordosis. Moderate facet hypertrophic changes from approximately L3 S1. Pelvic ring has normal appearance. DISCS: Disc space narrowing and mild endplate sclerosis at L5-S1. INCLUDED ABDOMEN: Included bowel gas pattern is non-obstructive. RAD/Lumbar Spine 2 or 3 Views IMPRESSION: 1. No acute fractures malalignment. 2. Diffuse facet hypertrophic changes from L3 to S1. 3. Lumbar spondylosis most notable at L5-S1 disc space narrowing endplate cirrhosis and marginal osteophyte formation. Electronically Signed: Everardo Kothari MD at 22:22 EDT ,
== END | disposition home or self-care (01) ==
LOC: MTRAD 10:09
PROVIDERS: PCP Family Medicine; Referring Provider Family Medicine; Visit Provider Family Medicine
DX: M54.50 Low back pain, unspecified (principal)
CPT/HCPCS: 72100

== ENCOUNTER → 2024-05-02 | Outpatient (CLI) | payer BC, SELFPAY ==
--- NOTE | 2024-05-02 07:11 | BI_ITS ---
MAMMOGRAPHY - BILATERAL SCREENING REASON FOR EXAM: Female, 53 years old. Routine annual screening examination. PERTINENT HISTORY: Mother with breast cancer. Grandmother with breast cancer. TECHNIQUE: Digital bilateral breast rafaela (3D mammographic acquisition) in the CC and MLO projections. 2-D mediolateral oblique (MLO) and craniocaudad (CC) views of both breasts were obtained. CAD: Full Field Digital Mammography with Computer Added Detection was performed. COMPARISON: Comparison is made with prior study April 06, 2023 and April 05, 2022. FINDINGS: Breast Composition: The breasts are heterogeneously dense, which may obscure small masses. There are no dominant masses or suspicious calcifications. There is a 4.3 mm well-defined nodule in the central retroareolar region of the left breast. Correlation with ultrasound is recommended. BI/SCRN MAMM (CAD)W/RAFAELA BILAT IMPRESSION: 4.3 mm well-defined nodule in the central retroareolar region of the left breast. Correlation with ultrasound is recommended. ASSESSMENT CATEGORY: BIRADS Category 0: Incomplete. Need additional imaging evaluation. A letter regarding these results will be sent to the patient by the facility within 30 days. Approximately 10% of breast cancers are not detected by mammography. A normal mammogram should not delay biopsy of a clinically suspicious abnormality. [id number] Electronically Signed: Burke Hoffmann MD at 8:28 EDT ,
== END | disposition home or self-care (01) ==
LOC: OPBI 07:11
PROVIDERS: PCP Family Medicine; Referring Provider Family Medicine; Visit Provider Family Medicine
DX: Z12.31 Encounter for screening mammogram for malignant neoplasm of breast (principal); Z80.3 Family history of malignant neoplasm of breast
CPT/HCPCS: 77063; 77067

== ENCOUNTER → 2024-05-07 | Outpatient (CLI) | payer BC, SELFPAY ==
--- NOTE | 2024-05-07 14:31 | US_ITS ---
STUDY: ULTRASOUND BREAST - LEFT REASON FOR EXAM: Female, 53 years old. Abnormal screening mammogram. TECHNIQUE: Axial and longitudinal images of the LEFT breast were performed with a high resolution ultrasound transducer. # OF IMAGES: [id number] COMPARISON: Comparison is made with prior mammogram dated May 02, 2024. FINDINGS: LEFT Breast: The central retroareolar region of the left breast was examined. There is a 5 mm x 6 mm x 4 mm septated cyst at the 2:00 addition the breast at 3 cm from nipple. There is also evidence of a cyst at the 3:00 position breast at 4 cm from nipple measuring 9 mm x 6 mm x 3 mm. US/Breast Limited Unilateral IMPRESSION: Mammographic abnormality corresponds to a cyst. Annual mammographic follow-up recommended. ASSESSMENT CATEGORY: BIRADS Category 2: Benign. A letter regarding these results will be sent to the patient by the facility within 30 days. Electronically Signed: Burke Hoffmann MD at 15:11 EDT ,
== END | disposition home or self-care (01) ==
PROVIDERS: PCP Family Medicine; Referring Provider Family Medicine; Visit Provider Family Medicine
DX: R92.8 Other abnormal and inconclusive findings on diagnostic imaging of breast (principal)
CPT/HCPCS: 76642

== ENCOUNTER → 2024-05-11 | Outpatient (CLI) | payer BC, SELFPAY ==
[2024-05-16 11:09] LABS: HPV APTIMA, High Risk Negative (Negative)
[2024-05-17 08:16] LABS: HPV Reflexed? YES, CHARGE PATIENT
== END | disposition home or self-care (01) ==
LOC: MFPLAB 09:27
PROVIDERS: PCP Family Medicine; Visit Provider Registered Nurse
DX: Z12.4 Encounter for screening for malignant neoplasm of cervix (principal)
CPT/HCPCS: 87624; 88175; G0145

== ENCOUNTER → 2024-10-27 | Outpatient (CLI) | payer BC, SELFPAY ==
[2024-10-27 08:19] LABS: Absolute Lymphocyte Count 1.47 X10^3/uL (0.83-4.51); Absolute Neutrophil Count 1.2 X10^3/uL (2.0-7.7); Basophil# 0.07 X10^3/uL; Basophil% 2.1 % (0-1); Eosinophil# 0.26 X10^3/uL; Eosinophils% 7.8 % (0-5); Hematocrit 41.8 % (37-47); Hemoglobin 14.3 g/dL (12.0-15.0); Lymphocyte # 1.47 X10^3/ul (0.83-4.51); Lymphocyte % 44.1 % (19-41); Mean Corp Hgb Conc 34.2 g/dL (32-36); Mean Corpuscular Hgb 29.2 pg (27.0-32.0); Mean Corpuscular Volume 85.5 fL (81-99); Mean Platelet Vol. 9.5 fl (6.2-12.0); Monocyte# 0.33 X10^3/uL; Monocyte% 9.9 % (0-10); NRBC Flagged by Analyzer 0 % (0-5); Neutrophil # 1.19 X10^3/uL (2.7-7.7); Neutrophil % 35.8 % (47-70); Platelet Count 303 K/mm3 (150-450); RBC Distribution Width CV 12.1 % (11.6-14.6); Red Blood Count 4.89 M/mm3 (4.2-5.4); White Blood Count 3.3 K/mm3 (4.4-11.0)
[2024-10-27 09:38] LABS: ALB/GLOB Ratio 1.5 RATIO (0.9-2.4); AST(SGOT) 17 U/L (<=31); Alanine Aminotransfer ALT/SGPT 15 U/L (<=34); Albumin, Serum 4.1 g/dL (3.5-5.0); Alkaline Phosphatase 81 U/L (35-104); Anion Gap 12 (5-15); BUN 12 mg/dL (4-19); BUN/Creat Ratio 15.9 RATIO (10-20); Calcium,Total 9.2 mg/dL (7.6-11.0); Carbon Dioxide 24.6 mmol/L (21.0-32.0); Chloride 103 mmol/L (98-108); Creatinine, Serum 0.77 mg/dL (0.70-1.20); EST Glomerular Filtration Rate 91 (>60); Globulin 2.8 g/dL (2.2-4.2); Glucose 92 mg/dL (70-99); Potassium 4.1 mmol/L (3.3-5.1); Sodium Level 139 mmol/L (133-145); Total Bilirubin 0.37 mg/dL (0.00-1.30)
[2024-10-27 14:04] LABS: Carbamazepine (Tegretol) 7.7 ug/mL (4.0-12.0)
== END | disposition home or self-care (01) ==
LOC: LAB 07:06
PROVIDERS: PCP Family Medicine; Referring Provider Psychiatry & Neurology Neurology; Visit Provider Psychiatry & Neurology Neurology
DX: G40.909 Epilepsy, unspecified, not intractable, without status epilepticus (principal)
CPT/HCPCS: 36415; 80053; 80156; 85025

== ENCOUNTER → 2025-04-27 | Outpatient (CLI) | payer BC, SELFPAY ==
--- OUTSIDE RECORDS SUMMARY | 2025-04-27 07:03 | XMS RPT_ITS | CCD ---
Author Organization [facility] ion [facility] Care Team Providers Care Dental Chair Assembler Name Role Phone James WHITLEY, Brittany Primary Care Provider Fran WHITLEY, Dr. Butler Attending Provider Unavailab Sophia WHITLEY, Dr. Butler Referring Provider UnavailNeetu Mayfield Attending Unavailable James, Chalon Primary Care Unavailable James, Chalon Primary Care Unavailable Ajmes, Chalon Attending Unavailable James, Chalon Referring Unavailable James, Chalon Primary Care Unavailable James, Chalon Attending Unavailable James, Chalon Referring Unavailable James, Chalon Primary Care Unavailable James, Chalon Attending Unavailable James, Chalon Referring Unavailable James, Chalon Primary Care Unavailable James, Chalon Attending Unavailable James, Chalon Referring Unavailable James, Chalon Primary Care Unavailable Prah, Paco Attending Unavailable Prah, Paco Referring Unavailable James, Chalon Primary Care Unavailable SwangerIsaura Attending Unavailable James, Chalon Primary Care Unavailable Prah, Paco Attending Unavailable Fran, Luke Referring Unavailable James, Chalon Primary Care Unavailable Prah, Paco Attending Unavailable James, Chalon Referring Unavailable James, Chalon Primary Care Unavailable Fran, Luke Attending Unavailable Fran, Luke Referring Unavailable Problems Active Problems Problem Classification Problem Date Documented Da te Episodic/Chronic Diseases of white blood cells (2 sources) Neutropenia, unspecified; Translations: [Neutropenia, unspecified] Onset: 12-12-2024 Chronic Disorders of lipid metabolism (1 source) Mixed hyperlipidemia; Translations: [Mixed hyperlipidemia] Onset: 04-25-2024 Chronic Epilepsy; convulsions (1 source) Epilepsy, unspecified, not intractable, without status epilepticus; Translations: [Epilepsy, unspecified, not intractable, without status epilepticus] Onset: 11-08-2024 Chronic Unclassified (1 source) Low back pain, unspecified; Translations: [Low back pain, unspecified] Onset: 04-30-2024 Past or Other Problems Problem Classification Problem Date Documented Da te Episodic/Chronic Other screening for suspected conditions (not mental disorders or infectious disease) (3 sources) Encounter for screening for malignant neoplasm of cervix; Translations: [Other abnormal and inconclusive findings on diagnostic imaging of breast] Onset: 05-22-2024 Episodic Results Test Name Value Interpretation Reference Range Facility Oncology Visit Reporton 11-21 Oncology Visit Report [facility] [place] [address] OFFICE VISIT Date of Service: 12/12/24 1050 MR#: [id number] Acct: [id number] Name: DUNCAN COY Rep #: [id number] : 1970 From: Paco Holland MD Age/Sex: 54/F Location: [facility] [place] Status: Signed HPI Subjective Date of Service 12/12/24 Chief Complaint F/u for Leukopenia History of Present Illness 54y.o.woman was found to have Leukopenia over the last 2 years and referred for evaluation. She denied fever, night sweats or weight loss. Has seizure disorder and has taken Carbamazepine since she was 13yrs ago. Had blood work and comes for follow up. [facility] Medical History History of ganglion cyst Asthma Hyperlipemia Epilepsy Leukopenia Surgical History H/O hand surgery Family History Mother Breast cancer Other Heart disease Social History Smoking Status: Never smoker alcohol intake: never substance use type: does not use Intake Vital Signs 11/28/24 10:30 12/12/24 10:50 Height 5 ft 4 in 5 ft 4 in Weight: 83.461 kg BMI 31.6 BP 129/86 H Blood Pressure Location Rt brachial Position Sitting Respiration 14 Pulse 66 Pulse Source Monitor Temp 97.8 F Temperature Source Temporal Artery Pulse Oximetry (%) 100 Oxygen Delivery Method room air Intake Associate Professor Of Theology Required: No Accompanied by: Is patient in pain?: No Allergies No Known Allergies Allergy (Verified 12/12/24 10:52) Medications ???Medication ???Instructions ???Recorded ???Confirmed ???Type albuterol 90 mcg/actuation aerosol mcg inhalation 11/12/24 12/12/24 History inhaler carbamazepine 300 mg 300 mg PO BID 11/12/24 12/12/24 Tn story capsule,extended release [id number] cholecalciferol (vitamin D3) 50 50 mcg PO QDAY 11/12/24 12/12/24 H istory mcg (2,000 unit) capsule fluticasone furoate 100 1 inh inhalation Q24H 11/12/24 History mcg/actuation blister powder for inhalation (Arnuity Ellipta) omega 5-bxh-ywf-fish oil 300 1 cap PO QDAY 11/12/24 12/12/24 Tn story mg-1,000 mg capsule (Fish Oil) zinc gluconate 50 mg tablet 50 mg PO QDAY 11/12/24 12/12/24 [facility] ascorbate calcium (vitamin C) 500 1,500 mg PO QDAY 11/28/24 5 History mg tablet black cumin 500 mg PO BID 11/28/24 12/12/24 [facility] bone care PO DAILY 11/28/24 12/12/24 History multivitamin with minerals (One 1 tab PO QDAY 11/28/24 12/12/24 Tn story Daily Complete tablet) multivitamin-iron (hematinic) tab PO DAILY 11/28/24 12/12/24 His tory red yeast rice 600 mg capsule 600 mg PO BID 11/28/24 12/12/24 [facility] Central Venous Access Central Venous Access: No Laboratory Tests 10/27/24 11/28/24 07:25 11:16 WBC 3.3 L 4.6 Hgb 14.3 14.5 Hct 41.8 42.2 Plt Count 303 318 Absolute Neuts (auto) 1.2 L 2.5 Absolute Lymphs (auto) 1.34 Sodium 139 137 Potassium 4.1 4.0 Chloride 103 100 Carbon Dioxide 24.6 28.0 BUN 12 14 Creatinine 0.77 0.75 Glucose 92 92 Calcium 9.2 9.6 Phosphorus 3.4 Magnesium 2.2 Iron 114 TIBC 335 Iron Saturation 34.0 Ferritin 92 Total Bilirubin 0.37 0.27 AST 17 18 ALT 15 16 Alkaline Phosphatase 81 85 Lactate Dehydrogenase 193 C-React Prot Ext Range < 3.00 Total Protein 7.0 7.5 Albumin 4.1 4.3 Globulin 2.8 3.2 Vitamin B12 1106 H CATALINA Screen Negative Exam Physical Exam Const alert, oriented x3 and no apparent distress Coding Level of Care Code Off vis,est,level 3 Exam Problem Focused Diagnoses Neutropenia, unspecified type D70.9 Leukopenia type: neutropenia Neutropenia type: unspecified Assessment and Plan Assessment and Plan (1) Leukopenia: Status: Resolved Qualifiers: Leukopenia type: neutropenia Neutropenia type: unspecified Qualified Code(s): D70.9 - Neutropenia, unspecified Comment: WBC was 4.6 on 11/28/2024 with normal differential. Reassured her. Plan: To do observation. Can continue Carbamazepine. RTC 24 weeks Plan Details Follow Up: 6 Months 12/12/24 1123 Date [facility]: Date (if applicable) CC: Dr. Brittany Ramirez MD; Dr. Luke Peters MD Normal [facility] COM[facility] Normal . [facility] Comment on above: Order Comment: Order Date: 03/19/24 Order Info: [id number] - BMP Order Info: [id number] - LIPID Order Info: [id number] - TSH Result Comment: Test Ordered: [id number] Flow panel: Leukemia/Lymphoma Flow Interpretation Comment -Y Reference Range: . No significant immunophenotypic abnormality detected Clinical Information Comment -Y Reference Range: . A recent WBC has been reviewed in preparing this report. Specimen Type Comment -Y Reference Range: . Peripheral blood Assessment of Leukocytes Comment -Y Reference Range: . No monoclonal B cell population is detected. kappa:lambda ratio 2.2 There is no loss of, or aberrant expression of, the lara T cell antigens to suggest a neoplastic T cell process. CD4:CD8 ratio 2.2 No circulating blasts are detected. There is no immunophenotypic evidence of abnormal myeloid maturation. Viability Comment -Y Reference Range: . 65% Cell viability in this sample is sufficient for analysis but is less than optimal. Analysis and Gating Strategy Comment -Y Reference Range: . 8 color analysis with CD45/SSC gating Technical-Analysis performed at [facility], [address] [place] [address]., [place] [address]? Director: Renita Bartholomew [facility] Phenotype Chart Comment -Y Reference Range: . CD2 Normal CD3 Normal CD4 Normal CD5 Normal CD7 Normal CD8 Normal CD10 Normal CD11b Normal CD13 Normal CD14 Normal CD16 Normal CD19 Normal CD20 Normal CD33 Normal CD34 Normal CD38 Normal CD45 Normal CD56 Normal CD57 Normal CD117 Normal HLA-DR Normal KAPPA Normal LAMBDA Normal CD64 Normal Resulting Path Name Comment -Y Reference Range: . Yael Saez M.D. Ph.D Comment: Comment TG Reference Range: . Each antibody in this assay was utilized to assess for potential abnormalities of studied cell populations or to characterize identified abnormalities. This test was developed and its performance characteristics determined by [employer]. It has not been cleared or approved by the U.S. Food and Drug Administration. The FDA has determined that such clearance or approval is not necessary. This test is used for clinical purposes. It should not be regarded as investigational or for research. Performed at: -Y - [facility] [address] [place], [place] [id number] Inspector Structural Bonding: Renita Bartholomew [facility], Phone: [phone] Performed at: - [facility] [address] [place], [place] [id number] Inspector Structural Bonding: Renita Bartholomew [facility], Phone: [phone] Performed at: - [address] [id number] Inspector Structural Bonding: Greg Olivier PhD, Phone: [phone] Performed By: #### L 500.4100, L100.0500, L500.2500, L506.1000 #### [facility] Laboratory [facility] [address], [address] ANTINUCLEAR ANTIBODIES DIREC [facility] 11-29-2024 CATALINA,DIRECT Negative Normal Negative [facility] Comment on above: Result Comment: Perf ormed at: [facility] [address] [place], [place] [id number] Inspector Structural Bonding: Greg Olivier PhD, Phone: [phone] Performed By: #### L 500.4100, L100.0500, L500.2500, L506.1000 #### [facility] Laboratory [address] [place], [address] Haptoglobinon 11-29-2024 HAPTOGLOBIN 136 mg/dL Normal 33-346 [facility] Comment on above: Result Comment: Perf ormed at: [facility] [id number] [place], [place] [id number] Inspector Structural Bonding: Greg Olivier PhD, Phone: [phone] Performed By: #### L 500.4100, L100.0500, L500.2500, L506.1000 #### [facility] Laboratory [address] [place], [address] CBC W/Diff, Automatedon 04-0 Absolute Lymph 1.34 X10 3/uL Normal 0.83-4.51 [facility] Comment on above: Performed By: #### L 500.4100, L100.0500, L500.2500, L506.1000 #### [facility] [address] [place], [address] Absolute Neut 2.5 X10 3/uL Normal 2.0-7.7 [facility] Comment on above: Performed By: #### L 500.4100, L100.0500, L500.2500, L506.1000 #### [facility] [address] [place], [address] Basophils/100 WBC (Bld) 1.7 % High 0-1 [facility] Comment on above: Performed By: #### L 500.4100, L100.0500, L500.2500, L506.1000 #### [facility] [address] [place], [address] Eosinophils/100 WBC (Bld) 6.7 % High 0-5 [facility] Comment on above: Performed By: #### L 500.4100, L100.0500, L500.2500, L506.1000 #### [facility] [address] [place], [address] Erythrocyte distribution width (RBC) [Ratio] 12.2 % Normal 11.6-14.6 [facility] Comment on above: Performed By: #### L 500.4100, L100.0500, L500.2500, L506.1000 #### [facility] [address] [place], [address] Hematocrit (Bld) [Volume fraction] 42.2 % Normal 37-47 [facility] Comment on above: Performed By: #### L 500.4100, L100.0500, L500.2500, L506.1000 #### [facility] [address] [place], [address] Hemoglobin (Bld) [Mass/Vol] 14.5 g/dL Normal 12.0-15.0 [facility] Comment on above: Performed By: #### L 500.4100, L100.0500, L500.2500, L506.1000 #### [facility] [address] [place], [address] IG% 0.200 Normal 0.0-0.9 [facility] Comment on above: Result Comment: IG% - Immature Granulocytes (promyelocytes, myelocytes and metamyelocytes) > 1% indicates that a LEFT SHIFT is Present. Performed By: #### L 500.4100, L100.0500, L500.2500, L506.1000 #### [facility] [address] [place], [address] Lymphocytes/100 WBC (Bld) 29.1 % Normal 19-41 [facility] Comment on above: Performed By: #### L 500.4100, L100.0500, L500.2500, L506.1000 #### [facility] [address] [place], [address] MCH (RBC) [Entitic mass] 29.9 pg Normal 27.0-32.0 [facility] Comment on above: Performed By: #### L 500.4100, L100.0500, L500.2500, L506.1000 #### [facility] [address] [place], [address] MCHC (RBC) [Mass/Vol] 34.4 g/dL Normal 32-36 [facility] Comment on above: Performed By: #### L 500.4100, L100.0500, L500.2500, L506.1000 #### [facility] [address] [place], [address] MCV (RBC) [Entitic vol] 87.0 fL Normal 81-99 [facility] Comment on above: Performed By: #### L 500.4100, L100.0500, L500.2500, L506.1000 #### [facility] [address] [place], [address] Monocytes/100 WBC (Bld) 8.9 % Normal 0-10 [facility] Comment on above: Performed By: #### L 500.4100, L100.0500, L500.2500, L506.1000 #### [facility] [address] [place], [address] Neutrophils/100 WBC (Bld) 53.4 % Normal 47-70 [facility] Comment on above: Performed By: #### L 500.4100, L100.0500, L500.2500, L506.1000 #### [facility] [address] [place], [address] Nucleated RBC (Bld) [#/Vol] 0 10*3/uL Normal 0-5 [facility] Comment on above: Performed By: #### L 500.4100, L100.0500, L500.2500, L506.1000 #### [facility] [address] [place], [address] Platelet mean volume (Bld) [Entitic vol] 9.2 fL Normal 6.2-12.0 [facility] Comment on above: Performed By: #### L 500.4100, L100.0500, L500.2500, L506.1000 #### [facility] [address] [place], [address] Platelets (Bld) [#/Vol] 318 10*3/uL Normal 150-450 [facility] Comment on above: Performed By: #### L 500.4100, L100.0500, L500.2500, L506.1000 #### [facility] [address] [place], [address] RBC (Bld) [#/Vol] 4.85 10*6/uL Normal 4.2-5.4 [facility] Comment on above: Performed By: #### L 500.4100, L100.0500, L500.2500, L506.1000 #### [facility] [address] [place], [address] RDW SD 39.1 fl Normal 35.1-43.9 [facility] Comment on above: Performed By: #### L 500.4100, L100.0500, L500.2500, L506.1000 #### [facility] [address] [place], [address] WBC (Bld) [#/Vol] 4.6 10*3/uL Normal 4.4-11.0 [facility] Comment on above: Performed By: #### L 500.4100, L100.0500, L500.2500, L506.1000 #### [facility] [address] [place], [address] CRPon 11-28-2024 C-REACTIVE PROT < 3.00 Normal 0.0-3.0 [facility] Comment on above: Performed By: #### L 500.4100, L100.0500, L500.2500, L506.1000 #### [facility] [address] [place], [address] Comprehensive Metabolic Prof ilon 11-28-2024 Albumin [Mass/Vol] 4.3 g/dL Normal 3.5-5.0 [facility] Comment on above: Performed By: #### L 500.4100, L100.0500, L500.2500, L506.1000 #### [facility] [address] [place], [address] Albumin/Globulin [Mass ratio] 1.4 {ratio} Normal 0.9-2.4 [facility] Comment on above: Performed By: #### L 500.4100, L100.0500, L500.2500, L506.1000 #### [facility] [address] [place], [address] ALK PHOS 85 U/L Normal 35-104 [facility] Comment on above: Performed By: #### L 500.4100, L100.0500, L500.2500, L506.1000 #### [facility] [address] [place], [address] ALT [Catalytic activity/Vol] 16 U/L Normal <=34 [facility] Comment on above: Performed By: #### L 500.4100, L100.0500, L500.2500, L506.1000 #### [facility] [address] [place], [address] AST [Catalytic activity/Vol] 18 U/L Normal <=31 [facility] Comment on above: Performed By: #### L 500.4100, L100.0500, L500.2500, L506.1000 #### [facility] [address] [place], [address] Bilirubin [Mass/Vol] 0.27 mg/dL Normal 0.00-1.30 [facility] Comment on above: Performed By: #### L 500.4100, L100.0500, L500.2500, L506.1000 #### [facility] [address] [place], [address] BUN/CRE 18.6 RATIO Normal 10-20 [facility] Comment on above: Performed By: #### L 500.4100, L100.0500, L500.2500, L506.1000 #### [facility] [address] [place], [address] Calcium [Mass/Vol] 9.6 mg/dL Normal 7.6-11.0 [facility] Comment on above: Performed By: #### L 500.4100, L100.0500, L500.2500, L506.1000 #### [facility] [address] [place], [address] Chloride [Moles/Vol] 100 mmol/L Normal 98-108 [facility] Comment on above: Performed By: #### L 500.4100, L100.0500, L500.2500, L506.1000 #### [facility] [address] [place], [address] CO2 [Moles/Vol] 28.0 mmol/L Normal 21.0-32.0 [facility] Comment on above: Performed By: #### L 500.4100, L100.0500, L500.2500, L506.1000 #### [facility] [address] [place], [address] Creatinine [Mass/Vol] 0.75 mg/dL Normal 0.70-1.20 [facility] Comment on above: Performed By: #### L 500.4100, L100.0500, L500.2500, L506.1000 #### [facility] [address] [place], [address] GAP 10 Normal 5-15 [facility] Comment on above: Performed By: #### L 500.4100, L100.0500, L500.2500, L506.1000 #### [facility] [address] [place], [address] GFR/1.73 sq M.predicted among non-blacks MDRD (S/P/Bld) [Vol rate/Area] 94 mL/min/{1.73_m2} Normal >60 [facility] Comment on above: Result Comment: mL/m in/1.73m2 CKD-EPI Creatinine Equation (2020) Performed By: #### L 500.4100, L100.0500, L500.2500, L506.1000 #### [facility] [address] [place], [address] Globulin (S) [Mass/Vol] 3.2 g/dL Normal 2.2-4.2 [facility] Comment on above: Performed By: #### L 500.4100, L100.0500, L500.2500, L506.1000 #### [facility] [address] [place], [address] Glucose [Mass/Vol] 92 mg/dL Normal 70-99 [facility] Comment on above: Performed By: #### L 500.4100, L100.0500, L500.2500, L506.1000 #### [facility] [address] [place], [address] Potassium [Moles/Vol] 4.0 mmol/L Normal 3.3-5.1 [facility] Comment on above: Performed By: #### L 500.4100, L100.0500, L500.2500, L506.1000 #### [facility] [address] [place], [address] Sodium [Moles/Vol] 137 mmol/L Normal 133-145 [facility] Comment on above: Performed By: #### L 500.4100, L100.0500, L500.2500, L506.1000 #### [facility] [address] [place], [address] T PROT 7.5 g/dL Normal 5.9-8.4 [facility] Comment on above: Performed By: #### L 500.4100, L100.0500, L500.2500, L506.1000 #### [facility] [address] [place], [address] Urea nitrogen [Mass/Vol] 14 mg/dL Normal 4-19 [facility] Comment on above: Performed By: #### L 500.4100, L100.0500, L500.2500, L506.1000 #### [facility] [address] [place], [address] Erythrocyte Sed Rateon 11-28 SED RATE 3 mm/hr Normal 0-30 [facility] Comment on above: Performed By: #### L 500.4100, L100.0500, L500.2500, L506.1000 #### [facility] [address] [place], [address] Ferritinon 11-28-2024 Ferritin [Mass/Vol] 92 ng/mL Normal 22-378 [facility] Comment on above: Performed By: #### L 500.4100, L100.0500, L500.2500, L506.1000 #### [facility] [address] [place], [address] Iron+Iron Binding Capacityon 11-28-2024 Iron [Mass/Vol] 114 ug/dL Normal 50-170 [facility] Comment on above: Performed By: #### L 500.4100, L100.0500, L500.2500, L506.1000 #### [facility] [address] [place], [address] UIBC 221 ug/dL Low 228-428 [facility] Comment on above: Performed By: #### L 500.4100, L100.0500, L500.2500, L506.1000 #### [facility] [address] [place], [address] LDHon 11-28-2024 LDH 193 U/L Normal 84-246 [facility] Comment on above: Order Comment: Order Date: 03/19/24 Order Info: [id number] - BMP Order Info: [id number] - LIPID Order Info: [id number] - TSH Performed By: #### L 500.4100, L100.0500, L500.2500, L506.1000 #### [facility] [address] [place], [address] Magnesiumon 11-28-2024 Magnesium [Mass/Vol] 2.2 mg/dL Normal 1.5-2.2 [facility] Comment on above: Performed By: #### L 500.4100, L100.0500, L500.2500, L506.1000 #### [facility] [address] [place], [address] Oncology Visit Reporton Oncology Visit Report [facility] [place] [facility] [address] [place] [address] OFFICE VISIT Date of Service: 11/28/24 1021 MR#: [id number] Acct: [id number] Name: DUNCAN COY Rep #: [id number] : 1970 From: Paco Holland MD Age/Sex: 54/F Location: [facility] [place] Status: Signed HPI Subjective Date of Service 11/28/24 Chief Complaint Referred for Leukopenia History of Present Illness 54y.o.woman was found to have Leukopenia over the last 2 years and referred for evaluation. She denies fever, night sweats or weight loss. Has seizure disorder and takes Carbamazepine since she was 13yrs ago. [facility] Medical History (Updated 11/28/24 @ 11:[address] Paco Holland MD) History of ganglion cyst Asthma Hyperlipemia Epilepsy Leukopenia Surgical History H/O hand surgery Family History Mother Breast cancer Other Heart disease Social History Smoking Status: Never smoker alcohol intake: never substance use type: does not use ROS Constitutional Constitutional: Reports systems reviewed and no addt'l complaints, except as documented Eyes Eyes: Reports systems reviewed and no addt'l complaints, except as documented ENT HEENT: Reports systems reviewed and no addt'l complaints, except as documented Cardiovascular Cardiovascular: Reports systems reviewed and no addt'l complaints, except as documented Respiratory/Chest Respiratory/Chest: Reports systems reviewed and no addt'l complaints, except as documented Gastrointestinal Gastrointestinal: Reports systems reviewed and no addt'l complaints, except as documented Genitourinary Genitourinary: Reports systems reviewed and no addt'l complaints, except as documented Musculoskeletal Musculoskeletal: Reports systems reviewed and no addt'l complaints, except as documented Integumentary Integumentary: Reports systems reviewed and no addt'l complaints, except as documented Neurologic Neurologic: Reports systems reviewed and no addt'l complaints, except as documented Psychiatric Psychiatric: Reports systems reviewed and no addt'l complaints, except as documented Endocrine Endocrinology: Reports systems reviewed and no addt'l complaints, except as documented Hematologic/Lymphati c Hematologic/Lymphati c: Reports systems reviewed and no addt'l complaints, except as documented Allergic/Immunologic Allergic/Immunologic : Reports systems reviewed and no addt'l complaints, except as documented Intake Vital Signs 11/28/24 10:28 11/28/24 10:30 Height 5 ft 4 in 5 ft 4 in Weight: 84 kg 84 kg BMI 31.8 31.8 BP 129/79 H Blood Pressure Location Lt brachial Position Sitting Respiration 18 Pulse 68 Pulse Source Monitor Temp 98.6 F Temperature Source Temporal Artery Pulse Oximetry (%) 96 Oxygen Delivery Method room air Intake Is patient in pain?: No Allergies No Known Allergies Allergy (Verified 11/28/24 10:21) Medications ???Medication ???Instructions ???Recorded ???Confirmed ???Type albuterol 90 mcg/actuation aerosol mcg inhalation 11/12/24 11/28/24 History inhaler carbamazepine 300 mg 300 mg PO BID 11/12/24 11/28/24 Tn [employer] capsule,extended release [id number] cholecalciferol (vitamin D3) 50 50 mcg PO QDAY 11/12/24 11/28/24 H istory mcg (2,000 unit) capsule fluticasone furoate 100 1 inh inhalation Q24H 11/12/2405/16 History mcg/actuation blister powder for inhalation (Arnuity Ellipta) omega 2-pkb-gma-fish oil 300 1 cap PO QDAY 11/12/24 11/28/24 Tn [employer] mg-1,000 mg capsule (Fish Oil) zinc gluconate 50 mg tablet 50 mg PO QDAY 11/12/24 11/28/24 Tn [employer] ascorbate calcium (vitamin C) 500 1,500 mg PO QDAY 11/28/24 5 History mg tablet black cumin 500 mg PO BID 11/28/24 History bone care PO DAILY 11/28/24 11/28/24 History multivitamin with minerals (One 1 tab PO QDAY 11/28/24 11/28/24 Tn [employer] Daily Complete tablet) multivitamin-iron (hematinic) tab PO DAILY 11/28/24 11/28/24 His tory red yeast rice 600 mg capsule 600 mg PO BID 11/28/24 11/28/24 Tn [employer] Central Venous Access Central Venous Access: No Laboratory Tests 10/27/24 07:25 WBC 3.3 L Hgb 14.3 Hct 41.8 Plt Count 303 Absolute Neuts (auto) 1.2 L Sodium 139 Potassium 4.1 Chloride 103 Carbon Dioxide 24.6 BUN 12 Creatinine 0.77 Glucose 92 Calcium 9.2 Total Bilirubin 0.37 AST 17 ALT 15 Alkaline Phosphatase 81 Total Protein 7.0 Albumin 4.1 Globulin 2.8 Exam Physical Exam Const alert, oriented x3 and no apparent distress HEENT normocephalic, external ears normal and external nose norm (more content not included)... Normal [facility] Phosphoruson 11-28-2024 Phosphate [Mass/Vol] 3.4 mg/dL Normal 2.7-4.5 [facility] Comment on above: Performed By: #### L 500.4100, L100.0500, L500.2500, L506.1000 #### [facility] [address] [place], [address] Retic Panelon 11-28-2024 IM RET FRACTION 4.30 Normal 3.00-15.90 [facility] Comment on above: Performed By: #### L 500.4100, L100.0500, L500.2500, L506.1000 #### [facility] [address] [place], [address] RET-HE 33.7 pg Normal 30-35 [facility] Comment on above: Performed By: #### L 500.4100, L100.0500, L500.2500, L506.1000 #### [facility] [address] [place], [address] Retic Count 1.06 Normal 0.5-1.5 [facility] Comment on above: Performed By: #### L 500.4100, L100.0500, L500.2500, L506.1000 #### [facility] [address] [place], [address] Vitamin B12on 11-28-2024 Cobalamin (Vitamin B12) [Mass/Vol] 1106 pg/mL High 180-914 [facility] Comment on above: Performed By: #### L 500.4100, L100.0500, L500.2500, L506.1000 #### [facility] [address] [place], [address] Absolute neutrophil countOrd ered By: Luke Peters on 10-27-2024 Neutrophils (Bld) [#/Vol] 1.2 10*3/uL Low 2.0-7.7 [facility] Anion gap in Serum or Plasma Ordered By: Luke Peters on 10-27-2024 Anion gap [Moles/Vol] 12 mmol/L 5-15 [facility] BUN/creatinine ratioOrdered By: Luke Peters on 10-27-2024 Urea nitrogen/Creatinine [Mass ratio] 15.9 mg/mg 10-20 [facility] Basophil percentageOrdered B y: Luke Peters on 10-27-2024 Basophils/100 WBC (Bld) 2.1 % High 0-1 [facility] Bilirubin, totalOrdered By: Luke Peters on 10-27-2024 Bilirubin [Mass/Vol] 0.37 mg/dL 0.00-1.30 [facility] CBC W/Diff, Automatedon Absolute Lymph 1.47 X10 3/uL Normal 0.83-4.51 [facility] Comment on above: Performed By: #### L 500.4050, L501.7900, L100.0100 #### [facility] [address] [place], [address] Absolute Neut 1.2 X10 3/uL Low 2.0-7.7 [facility] Comment on above: Performed By: #### L 500.4050, L501.7900, L100.0100 #### [facility] [address] [place], [address] Basophils/100 WBC (Bld) 2.1 % High 0-1 [facility] Comment on above: Performed By: #### L 500.4050, L501.7900, L100.0100 #### [facility] [address] [place], [address] Eosinophils/100 WBC (Bld) 7.8 % High 0-5 [facility] Comment on above: Performed By: #### L 500.4050, L501.7900, L100.0100 #### [facility] [address] [place], [address] Erythrocyte distribution width (RBC) [Ratio] 12.1 % Normal 11.6-14.6 [facility] Comment on above: Performed By: #### L 500.4050, L501.7900, L100.0100 #### [facility] [address] [place], [address] Hematocrit (Bld) [Volume fraction] 41.8 % Normal 37-47 [facility] Comment on above: Performed By: #### L 500.4050, L501.7900, L100.0100 #### [facility] [address] [place], [address] Hemoglobin (Bld) [Mass/Vol] 14.3 g/dL Normal 12.0-15.0 [facility] Comment on above: Performed By: #### L 500.4050, L501.7900, L100.0100 #### [facility] [address] [place], [address] IG% 0.300 Normal 0.0-0.9 [facility] Comment on above: Result Comment: IG% - Immature Granulocytes (promyelocytes, myelocytes and metamyelocytes) > 1% indicates that a LEFT SHIFT is Present. Performed By: #### L 500.4050, L501.7900, L100.0100 #### [facility] [address] [place], [address] Lymphocytes/100 WBC (Bld) 44.1 % High 19-41 [facility] Comment on above: Performed By: #### L 500.4050, L501.7900, L100.0100 #### [facility] [address] [place], [address] MCH (RBC) [Entitic mass] 29.2 pg Normal 27.0-32.0 [facility] Comment on above: Performed By: #### L 500.4050, L501.7900, L100.0100 #### [facility] [address] [place], [address] MCHC (RBC) [Mass/Vol] 34.2 g/dL Normal 32-36 [facility] Comment on above: Performed By: #### L 500.4050, L501.7900, L100.0100 #### [facility] [address] [place], [address] MCV (RBC) [Entitic vol] 85.5 fL Normal 81-99 [facility] Comment on above: Performed By: #### L 500.4050, L501.7900, L100.0100 #### [facility] [address] [place], [address] Monocytes/100 WBC (Bld) 9.9 % Normal 0-10 [facility] Comment on above: Performed By: #### L 500.4050, L501.7900, L100.0100 #### [facility] [address] [place], [address] Neutrophils/100 WBC (Bld) 35.8 % Low 47-70 [facility] Comment on above: Performed By: #### L 500.4050, L501.7900, L100.0100 #### [facility] [address] [place], [address] Nucleated RBC (Bld) [#/Vol] 0 10*3/uL Normal 0-5 [facility] Comment on above: Performed By: #### L 500.4050, L501.7900, L100.0100 #### [facility] [address] [place], [address] Platelet mean volume (Bld) [Entitic vol] 9.5 fL Normal 6.2-12.0 [facility] Comment on above: Performed By: #### L 500.4050, L501.7900, L100.0100 #### [facility] [address] [place], [address] Platelets (Bld) [#/Vol] 303 10*3/uL Normal 150-450 [facility] Comment on above: Performed By: #### L 500.4050, L501.7900, L100.0100 #### [facility] [address] [place], [address] RBC (Bld) [#/Vol] 4.89 10*6/uL Normal 4.2-5.4 [facility] Comment on above: Performed By: #### L 500.4050, L501.7900, L100.0100 #### [facility] [address] [place], [address] RDW SD 38.0 fl Normal 35.1-43.9 [facility] Comment on above: Performed By: #### L 500.4050, L501.7900, L100.0100 #### [facility] [address] [place], [address] WBC (Bld) [#/Vol] 3.3 10*3/uL Low 4.4-11.0 [facility] Comment on above: Performed By: #### L 500.4050, L501.7900, L100.0100 #### [facility] [address] [place], [address] Carbamazepine (Tegretol)on 0 10-27-2024 CARBAMAZEPINE 7.7 ug/mL Normal 4.0-12.0 [facility] Comment on above: Performed By: #### L 500.4100, L100.0500, L500.2500, L506.1000 #### [facility] [address] [place], [address] Carbon dioxide, total [Moles /volume] in Central venous bloodOrdered By: Luke Peters on 10-27-2024 CO2 [Moles/Vol] 24.6 mmol/L 21.0-32.0 [facility] Chloride assayOrdered By: Vincent ePters on 10-27-2024 Chloride [Moles/Vol] 103 mmol/L 98-108 [facility] Comprehensive Metabolic Prof ilon 10-27-2024 Albumin [Mass/Vol] 4.1 g/dL Normal 3.5-5.0 [facility] Comment on above: Performed By: #### L 500.4100, L100.0500, L500.2500, L506.1000 #### [facility] [address] [place], [address] Albumin/Globulin [Mass ratio] 1.5 {ratio} Normal 0.9-2.4 [facility] Comment on above: Performed By: #### L 500.4100, L100.0500, L500.2500, L506.1000 #### [facility] [address] [place], [address] ALK PHOS 81 U/L Normal 35-104 [facility] Comment on above: Performed By: #### L 500.4100, L100.0500, L500.2500, L506.1000 #### [facility] [address] [place], [address] ALT [Catalytic activity/Vol] 15 U/L Normal <=34 [facility] Comment on above: Performed By: #### L 500.4100, L100.0500, L500.2500, L506.1000 #### [facility] [address] [place], [address] AST [Catalytic activity/Vol] 17 U/L Normal <=31 [facility] Comment on above: Performed By: #### L 500.4100, L100.0500, L500.2500, L506.1000 #### [facility] [address] [place], [address] Bilirubin [Mass/Vol] 0.37 mg/dL Normal 0.00-1.30 [facility] Comment on above: Performed By: #### L 500.4100, L100.0500, L500.2500, L506.1000 #### [facility] [address] [place], [address] BUN/CRE 15.9 RATIO Normal 10-20 [facility] Comment on above: Performed By: #### L 500.4100, L100.0500, L500.2500, L506.1000 #### [facility] [address] [place], [address] Calcium [Mass/Vol] 9.2 mg/dL Normal 7.6-11.0 [facility] Comment on above: Performed By: #### L 500.4100, L100.0500, L500.2500, L506.1000 #### [facility] [address] [place], [address] Chloride [Moles/Vol] 103 mmol/L Normal 98-108 [facility] Comment on above: Performed By: #### L 500.4100, L100.0500, L500.2500, L506.1000 #### [facility] [address] [place], [address] CO2 [Moles/Vol] 24.6 mmol/L Normal 21.0-32.0 [facility] Comment on above: Performed By: #### L 500.4100, L100.0500, L500.2500, L506.1000 #### [facility] [address] [place], [address] Creatinine [Mass/Vol] 0.77 mg/dL Normal 0.70-1.20 [facility] Comment on above: Performed By: #### L 500.4100, L100.0500, L500.2500, L506.1000 #### [facility] [address] [place], [address] GAP 12 Normal 5-15 [facility] Comment on above: Performed By: #### L 500.4100, L100.0500, L500.2500, L506.1000 #### [facility] [address] [place], [address] GFR/1.73 sq M.predicted among non-blacks MDRD (S/P/Bld) [Vol rate/Area] 91 mL/min/{1.73_m2} Normal >60 [facility] Comment on above: Result Comment: mL/m in/1.73m2 CKD-EPI Creatinine Equation (2020) Performed By: #### L 500.4100, L100.0500, L500.2500, L506.1000 #### [facility] [address] [place], [address] Globulin (S) [Mass/Vol] 2.8 g/dL Normal 2.2-4.2 [facility] Comment on above: Performed By: #### L 500.4100, L100.0500, L500.2500, L506.1000 #### [facility] [address] [place], [address] Glucose [Mass/Vol] 92 mg/dL Normal 70-99 [facility] Comment on above: Performed By: #### L 500.4100, L100.0500, L500.2500, L506.1000 #### [facility] [address] [place], [address] Potassium [Moles/Vol] 4.1 mmol/L Normal 3.3-5.1 [facility] Comment on above: Performed By: #### L 500.4100, L100.0500, L500.2500, L506.1000 #### [facility] [address] [place], [address] Sodium [Moles/Vol] 139 mmol/L Normal 133-145 [facility] Comment on above: Performed By: #### L 500.4100, L100.0500, L500.2500, L506.1000 #### [facility] [address] [place], [address] T PROT 7.0 g/dL Normal 5.9-8.4 [facility] Comment on above: Performed By: #### L 500.4100, L100.0500, L500.2500, L506.1000 #### [facility] [address] [place], [address] Urea nitrogen [Mass/Vol] 12 mg/dL Normal 4-19 [facility] Comment on above: Performed By: #### L 500.4100, L100.0500, L500.2500, L506.1000 #### [facility] [address] [place], [address] Eosinophil percentageOrdered By: Luke Peters on 10-27-2024 Eosinophils/100 WBC (Bld) 7.8 % High 0-5 [facility] Erythrocyte distribution wid th ratioOrdered By: Luke Peters on 10-27-2024 Erythrocyte distribution width (RBC) [Ratio] 12.1 % 11.6-14.6 [facility] Erythrocyte distribution wid th standard deviationOrdered By: Luke Peters on 10-27-2024 Erythrocyte distribution width (RBC) [Entitic vol] 38.0 fL 35.1-43.9 [facility] GFR/1.73 sq M.predicted missael g non-blacks MDRD (S/P/Bld) [Vol rate/Area]Ordered By: Luke Peters on 10-27-2024 Estimated GFR (MDRD) Non-Af Amer 91 >60 [facility] Comment on above: mL/min/1.73m2 CKD-EP I Creatinine Equation (2020) Hematocrit Auto (Bld) [Volum e fraction]Ordered By: Luke Peters on 10-27-2024 Hematocrit (Bld) [Volume fraction] 41.8 % 37-47 [facility] Hemoglobin measurementOrdere d By: Luke Peters on 10-27-2024 Hemoglobin (Bld) [Mass/Vol] 14.3 g/dL 12.0-15.0 [facility] Immature granulocytes/100 WB C Auto (Bld)Ordered By: Luke Peters on 10-27-2024 Immature granulocytes/100 WBC (Bld) 0.300 % 0.0-0.9 [facility] Comment on above: IG% - Immature Granu locytes (promyelocytes, myelocytes and metamyelocytes) > 1% indicates that a LEFT SHIFT is Present. Laboratory - Chemistry and C hemistry - challengeOrdered By: Luke Peters on 10-27-2024 AST [Catalytic activity/Vol] 17 U/L <32 [facility] Lymphocytes Auto (Unsp spec) [#/Vol]Ordered By: Luke Peters on 10-27-2024 Lymphocytes (Bld) [#/Vol] 1.47 10*3/uL 0.83-4.51 [facility] Lymphocytes/100 WBC Auto (Un sp spec)Ordered By: Luke Peters on 10-27-2024 Lymphocytes/100 WBC (Bld) 44.1 % High 19-41 [facility] MCV (mean corpuscular volume ) determinationOrdered By: Luke Peters on 10-27-2024 MCV (RBC) [Entitic vol] 85.5 fL 81-99 [facility] Mean corpuscular hemoglobin (MCH) determinationOrdered By: Luke Peters on 10-27-2024 MCH (RBC) [Entitic mass] 29.2 pg 27.0-32.0 [facility] Mean corpuscular hemoglobin concentration (MCHC) determinationOrdered By: Luke Peters on 10-27-2024 MCHC (RBC) [Mass/Vol] 34.2 g/dL 32-36 [facility] Mean platelet volume determi nationOrdered By: Luke Peters on 10-27-2024 Platelet mean volume (Bld) [Entitic vol] 9.5 fL 6.2-12.0 [facility] Monocyte percentageOrdered B y: Luke Peters on 10-27-2024 Monocytes/100 WBC (Bld) 9.9 % 0-10 [facility] Neutrophil percentageOrdered By: Luke Peters on 10-27-2024 Neutrophils/100 WBC (Bld) 35.8 % Low 47-70 [facility] Nucleated red blood cell per centageOrdered By: Luke Peters on 10-27-2024 Nucleated RBC/100 WBC (Bld) [Ratio] 0 % 0-5 [facility] Platelet countOrdered By: Vincent Peters on 10-27-2024 Platelets (Bld) [#/Vol] 303 10*3/uL 150-450 [facility] Potassium (Unsp spec) [Mass/ Vol]Ordered By: Luke Peters on 10-27-2024 Potassium [Moles/Vol] 4.1 mmol/L 3.3-5.1 [facility] RBC Auto (Bld) [#/Vol]Ordere d By: Luke Peters on 10-27-2024 RBC (Bld) [#/Vol] 4.89 10*6/uL 4.2-5.4 [facility] Serum creatinine measurement (mass/volume)Ordered By: Luke Peters on 10-27-2024 Creatinine [Mass/Vol] 0.77 mg/dL 0.70-1.20 [facility] Serum globulin measurementOr dered By: Luke Peters on 10-27-2024 Globulin (S) [Mass/Vol] 2.8 g/dL 2.2-4.2 [facility] Serum glucose measurement (m ass/volume)Ordered By: Luke Peters on 10-27-2024 Glucose [Mass/Vol] 92 mg/dL 70-99 [facility] Serum or plasma alanine enciso otransferase (ALT) measurementOrdered By: Luke Peters on 10-27-2024 ALT [Catalytic activity/Vol] 15 U/L <35 [facility] Serum or plasma albumin malena urement (mass/volume)Ordered By: Luke Peters on 10-27-2024 Albumin [Mass/Vol] 4.1 g/dL 3.5-5.0 [facility] Serum or plasma albumin/glob ulin mass ratioOrdered By: Luke Peters on 10-27-2024 Albumin/Globulin [Mass ratio] 1.5 {ratio} 0.9-2.4 [facility] Serum or plasma alkaline lizzy sphatase measurementOrdered By: Luke Peters on 10-27-2024 ALP [Catalytic activity/Vol] 81 U/L 35-104 [facility] Serum or plasma calcium malena urement (mass/volume)Ordered By: Luke Peters on 10-27-2024 Calcium [Mass/Vol] 9.2 mg/dL 7.6-11.0 [facility] Serum or plasma urea nitroge n measurement (mass/volume)Ordered By: Luke Peters on 10-27-2024 Urea nitrogen [Mass/Vol] 12 mg/dL 4-19 [facility] Sodium levelOrdered By: Odell Peters on 10-27-2024 Sodium [Moles/Vol] 139 mmol/L 133-145 [facility] Total proteinOrdered By: Rivas Peters on 10-27-2024 Protein [Mass/Vol] 7.0 g/dL 5.9-8.4 [facility] White blood cell (WBC) count Ordered By: Luke Peters on 10-27-2024 WBC (Bld) [#/Vol] 3.3 10*3/uL Low 4.4-11.0 [facility] carBAMazepine [Mass/Vol]Orde red By: Luke Peters on 10-27-2024 Carbamazepine (Tegretol) Level 7.7 ug/mL 4.0-12.0 [facility] PAP IG HPV HR APTIMAon 05-16 ADEQ Comment Normal . [facility] Comment on above: Order Comment: Order Date: 03/19/24 Order Info: [id number] - BMP Order Info: [id number] - LIPID Order Info: [id number] - TSH Result Comment: Sati sfactory for evaluation. Endocervical component may not be distinguished in cases of atrophy. Performed By: #### L 500.4100, L100.0500, L500.2500, L506.1000 #### [facility] [address] [place], [address] COMM . Normal . [facility] Comment on above: Order Comment: Order Date: 03/19/24 Order Info: [id number] - BMP Order Info: [id number] - LIPID Order Info: [id number] - TSH Performed By: #### L 500.4100, L100.0500, L500.2500, L506.1000 #### [facility] [address] [place], [address] COMMENT Comment Normal . [facility] Comment on above: Order Comment: Order Date: 03/19/24 Order Info: 06 - BMP Order Info: [id number] - LIPID Order Info: [id number] - TSH Result Comment: This liquid based ThinPrep(R) pap test was screened with the use of an image guided system. Performed By: #### L 500.4100, L100.0500, L500.2500, L506.1000 #### [facility] [address] [place], [place], [id number] DIAG Comment Normal . [facility] Comment on above: Order Comment: Order Date: 03/19/24 Order Info: [id number] - BMP Order Info: - LIPID Order Info: 3 - TSH Result Comment: NEGA TIVE FOR INTRAEPITHELIAL LESION OR MALIGNANCY. CELLULAR CHANGES ASSOCIATED WITH ATROPHY ARE PRESENT. Performed By: #### L 500.4100, L100.0500, L500.2500, L506.1000 #### [facility] [address] [place], [place], [id number] HPV APTIMA, HR Negative Normal Negative [facility] Comment on above: Order Comment: Order Date: 03/19/24 Order Info: [id number] - BMP Order Info: [id number] - LIPID Order Info: 6-3 - TSH Result Comment: This nucleic acid amplification test detects fourteen high- risk HPV types (16,18,31,33,35,39,45,51,52,56,58,59,66,68) without differentiation. Performed at: - [facility] [id number] [employer]: Samira Hannon MD, Phone: [phone] Performed at: = - [facility] [id number] [employer]ing: Samira Hannon MD, Phone: [phone] Performed By: #### L 500.4100, L100.0500, L500.2500, L506.1000 #### [facility] [address] [place], [place], [id number] PAPSMR Comment Normal . [facility] Comment on above: Order Comment: Order Date: 03/19/24 Order Info: 0667-1 - BMP Order Info: [id number] - LIPID Order Info: [id number] - TSH Result Comment: The Pap smear is a screening test designed to aid in the detection of premalignant and malignant conditions of the uterine cervix. It is not a diagnostic procedure and should not be used as the sole means of detecting cervical cancer. Both false-positive and false-negative reports do occur. Performed By: #### L 500.4100, L100.0500, L500.2500, L506.1000 #### [facility] [address] [place], [address] PERFORM Comment Normal . [facility] Comment on above: Order Comment: Order Date: 03/19/24 Order Info: 0667-1 - BMP Order Info: [id number] - LIPID Order Info: [id number] - TSH Result Comment: Ashley Ortiz, Dog Licenser (ASCP) Performed By: #### L 500.4100, L100.0500, L500.2500, L506.1000 #### [facility] [address] [place], [address] Breast Limited Unilateralon 05-07-2024 Breast Limited Unilateral [facility] Imaging Services [address] [place] [address] Breast Limited Unilateral MR#: [id number] Acct: [id number] Name: DUNCAN COY Rep #: [id number] : 1970 F 53 From: Burke tracey MD PCP: Dr. Brittany Ramirez MD Status: [facility] Study: Breast Limited Unilateral Date of Exam: Exam# [id number] Ordering Dr: Brittany Ramirez MD [id number] STUDY: ULTRASOUND BREAST - LEFT REASON FOR EXAM: Female, 53 years old. Abnormal screening mammogram. TECHNIQUE: Axial and longitudinal images of the LEFT breast were performed with a high resolution ultrasound transducer. # OF IMAGES: 44 COMPARISON: Comparison is made with prior mammogram dated May 02, 2024. FINDINGS: LEFT Breast: The central retroareolar region of the left breast was examined. There is a 5 mm x 6 mm x 4 mm septated cyst at the 2:00 addition the breast at 3 cm from nipple. There is also evidence of a cyst at the 3:00 position breast at 4 cm from nipple measuring 9 mm x 6 mm x 3 mm. US/Breast Limited Unilateral IMPRESSION: Mammographic abnormality corresponds to a cyst. Annual mammographic follow-up recommended. ASSESSMENT CATEGORY: BIRADS Category 2: Benign. A letter regarding these results will be sent to the patient by the facility within 30 days. Electronically Signed: Burke Hoffmann MD at 15:11 EDT Reading Location ID and State: [facility] / [place] , Service support , CC: Dr. Brittany Ramirez MD Accredited Pharmacy Technician: Signed Normal [facility] SCRN MAMM (CAD)W/RAFAELA BILATo n 05-02-2024 SCRN MAMM (CAD)W/RAFAELA BILAT [facility] Imaging Services [address], [place] [address] SCRN MAMM (CAD)W/RAFAELA BILAT MR#: [id number] Acct: [id number] Name: DUNCAN COY Rep #: [id number] : 1970 F 53 From: Burke tracey MD PCP: Dr. Brittany Ramirez MD Status: [facility] Study: SCRN MAMM (CAD)W/RAFAELA BILAT Date of Exam: 04/22 09/14 Exam# [id number] Ordering Dr: Brittany Ramirez MD [id number] MAMMOGRAPHY - BILATERAL SCREENING REASON FOR EXAM: Female, 53 years old. Routine annual screening examination. PERTINENT HISTORY: Mother with breast cancer. Grandmother with breast cancer. TECHNIQUE: Digital bilateral breast rafaela (3D mammographic acquisition) in the CC and MLO projections. 2-D mediolateral oblique (MLO) and craniocaudad (CC) views of both breasts were obtained. CAD: Full Field Digital Mammography with Computer Added Detection was performed. COMPARISON: Comparison is made with prior study April 06, 2023 and April 05, 2022. FINDINGS: Breast Composition: The breasts are heterogeneously dense, which may obscure small masses. There are no dominant masses or suspicious calcifications. There is a 4.3 mm well-defined nodule in the central retroareolar region of the left breast. Correlation with ultrasound is recommended. BI/SCRN MAMM (CAD)W/RAFAELA BILAT IMPRESSION: 4.3 mm well-defined nodule in the central retroareolar region of the left breast. Correlation with ultrasound is recommended. ASSESSMENT CATEGORY: BIRADS Category 0: Incomplete. Need additional imaging evaluation. A letter regarding these results will be sent to the patient by the facility within 30 days. Approximately 10% of breast cancers are not detected by mammography. A normal mammogram should not delay biopsy of a clinically suspicious abnormality. [id number] Electronically Signed: Burke Hoffmann MD at 8:28 EDT , CC: Dr. Brittany Ramirez MD Accredited Pharmacy Technician: Signed Normal [facility] Spine 2 or 3 Viewson 04-19-2024 Lumbar Spine 2 or 3 Views [facility] Imaging Services [place], [place] [id number] Lumbar Spine 2 or 3 Views MR#: [id number] Acct: [id number] Name: DUNCAN COY Rep #: [id number] : 1970 F 53 From: Everardo Hunter PCP: Dr. Brittany Ramirez MD Status: REG CLI Study: Lumbar Spine 2 or 3 Views Date of Exam: Exam# [id number] Ordering Dr: Brittany Ramirez MD [id number] INDICATION: Low back injury EXAMINATION/TECHNIQU E: X-RAY - XR Spine Lumbar 2 or 3 Views COMPARISON: None. ____ FINDINGS: VERTEBRAE: Preserved vertebral body height. No fracture. No spondylolisthesis. Preservation of the normal lumbar lordosis. Moderate facet hypertrophic changes from approximately L3 S1. Pelvic ring has normal appearance. DISCS: Disc space narrowing and mild endplate sclerosis at L5-S1. INCLUDED ABDOMEN: Included bowel gas pattern is non-obstructive. RAD/Lumbar Spine 2 or 3 Views IMPRESSION: 1. No acute fractures malalignment. 2. Diffuse facet hypertrophic changes from L3 to S1. 3. Lumbar spondylosis most notable at L5-S1 disc space narrowing endplate cirrhosis and marginal osteophyte formation. Electronically Signed: Everardo Kothari MD at 22:22 EDT , CC: Dr. Brittany Ramirez MD Accredited Pharmacy Technician: Signed Normal [facility] Basic Metabolic Profile (BMP )on 03-23-2024 BUN/CRE 17.9 RATIO Normal 10-20 [facility] Comment on above: Order Comment: Order Date: 03/19/24 Order Info: 666-08 - BMP Order Info: [id number] - LIPID Order Info: 3015-3 - TSH Performed By: #### L 500.4100, L100.0500, L500.2500, L506.1000 #### [facility] [address] [place], [address] CA,Total 9.1 mg/dL Normal 8.5-10.1 [facility] Comment on above: Order Comment: Order Date: 03/19/24 Order Info: 666-08 - BMP Order Info: [id number] - LIPID Order Info: 3 - TSH Performed By: #### L 500.4100, L100.0500, L500.2500, L506.1000 #### [facility] [address] [place], [address] Chloride [Moles/Vol] 106 mmol/L Normal 98-107 [facility] Comment on above: Order Comment: Order Date: 03/19/24 Order Info: 666-08 - BMP Order Info: [id number] - LIPID Order Info: [id number] - TSH Performed By: #### L 500.4100, L100.0500, L500.2500, L506.1000 #### [facility] [address] [place], [address] CO2 [Moles/Vol] 30.0 mmol/L Normal 21.0-32.0 [facility] Comment on above: Order Comment: Order Date: 03/19/24 Order Info: 666-08 - BMP Order Info: [id number] - LIPID Order Info: 3 - TSH Performed By: #### L 500.4100, L100.0500, L500.2500, L506.1000 #### [facility] [address] [place], [address] Creatinine [Mass/Vol] 0.78 mg/dL Normal 0.55-1.02 [facility] Comment on above: Order Comment: Order Date: 03/19/24 Order Info: 666-08 - BMP Order Info: - LIPID Order Info: [id number] - TSH Result Comment: The validity of the calculated GFR GFRAA in patients over 70 years has not been determined. Clinical correlation is essential. Performed By: #### L 500.4100, L100.0500, L500.2500, L506.1000 #### [facility] [address] [place], [address] EST GFR - AA 98 mL/min Normal >60 [facility] Comment on above: Order Comment: Order Date: 03/19/24 Order Info: 666-08 - BMP Order Info: - LIPID Order Info: [id number] - TSH Result Comment: Afri can [place] GFR Calc Performed By: #### L 500.4100, L100.0500, L500.2500, L506.1000 #### [facility] [address] [place], [address] GAP 3 Low 5-15 [facility] Comment on above: Order Comment: Order Date: 03/19/24 Order Info: 666-08 - BMP Order Info: - LIPID Order Info: [id number] - TSH Performed By: #### L 500.4100, L100.0500, L500.2500, L506.1000 #### [facility] [address] [place], [address] GFR/1.73 sq M.predicted among non-blacks MDRD (S/P/Bld) [Vol rate/Area] 81 mL/min/{1.73_m2} Normal >60 [facility] Comment on above: Order Comment: Order Date: 03/19/24 Order Info: 666-08 - BMP Order Info: - LIPID Order Info: [id number] - TSH Result Comment: Non- GFR Calc Performed By: #### L 500.4100, L100.0500, L500.2500, L506.1000 #### [facility] [address] [place], [address] Glucose [Mass/Vol] 98 mg/dL Normal 74-106 [facility] Comment on above: Order Comment: Order Date: 03/19/24 Order Info: 666-08 - BMP Order Info: - LIPID Order Info: 3 - TSH Performed By: #### L 500.4100, L100.0500, L500.2500, L506.1000 #### [facility] [address] [place], [address] Potassium [Moles/Vol] 4.2 mmol/L Normal 3.5-5.1 [facility] Comment on above: Order Comment: Order Date: 03/19/24 Order Info: 666-08 - BMP Order Info: - LIPID Order Info: 3015-10 - TSH Performed By: #### L 500.4100, L100.0500, L500.2500, L506.1000 #### [facility] [address] [place], [address] Sodium [Moles/Vol] 139 mmol/L Normal 136-145 [facility] Comment on above: Order Comment: Order Date: 03/19/24 Order Info: 666-08 - BMP Order Info: - LIPID Order Info: 3015-10 - TSH Performed By: #### L 500.4100, L100.0500, L500.2500, L506.1000 #### [facility] [address] [place], [address] Urea nitrogen [Mass/Vol] 14 mg/dL Normal 7-18 [facility] Comment on above: Order Comment: Order Date: 03/19/24 Order Info: 666-08 - BMP Order Info: - LIPID Order Info: 3015-10 - TSH Performed By: #### L 500.4100, L100.0500, L500.2500, L506.1000 #### [facility] [address] [place], [address] CBC-Complete Blood Cnt No Di ffon 03-23-2024 Erythrocyte distribution width (RBC) [Ratio] 12.3 % Normal 11.6-14.6 [facility] Comment on above: Order Comment: Order Date: 03/19/24 Order Info: [id number] - CBC Performed By: #### L 500.4100, L100.0500, L500.2500, L506.1000 #### [facility] [address] [place], [address] Hematocrit (Bld) [Volume fraction] 43.7 % Normal 37-47 [facility] Comment on above: Order Comment: Order Date: 03/19/24 Order Info: [id number] - CBC Performed By: #### L 500.4100, L100.0500, L500.2500, L506.1000 #### [facility] [address] [place], [address] Hemoglobin (Bld) [Mass/Vol] 14.8 g/dL Normal 12.0-15.0 [facility] Comment on above: Order Comment: Order Date: 03/19/24 Order Info: [id number] - CBC Performed By: #### L 500.4100, L100.0500, L500.2500, L506.1000 #### [facility] [address] [place], [address] MCH (RBC) [Entitic mass] 29.5 pg Normal 27.0-32.0 [facility] Comment on above: Order Comment: Order Date: 03/19/24 Order Info: [id number] - CBC Performed By: #### L 500.4100, L100.0500, L500.2500, L506.1000 #### [facility] [address] [place], [address] MCHC (RBC) [Mass/Vol] 33.9 g/dL Normal 32-36 [facility] Comment on above: Order Comment: Order Date: 03/19/24 Order Info: [id number] - CBC Performed By: #### L 500.4100, L100.0500, L500.2500, L506.1000 #### [facility] [address] [place], [address] MCV (RBC) [Entitic vol] 87.1 fL Normal 81-99 [facility] Comment on above: Order Comment: Order Date: 03/19/24 Order Info: [id number] - CBC Performed By: #### L 500.4100, L100.0500, L500.2500, L506.1000 #### [facility] [address] [place], [address] Platelet mean volume (Bld) [Entitic vol] 9.8 fL Normal 6.2-12.0 [facility] Comment on above: Order Comment: Order Date: 03/19/24 Order Info: [id number] - CBC Performed By: #### L 500.4100, L100.0500, L500.2500, L506.1000 #### [facility] [address] [place], [address] Platelets (Bld) [#/Vol] 318 10*3/uL Normal 150-450 [facility] Comment on above: Order Comment: Order Date: 03/19/24 Order Info: [id number] - CBC Performed By: #### L 500.4100, L100.0500, L500.2500, L506.1000 #### [facility] [address] [place], [address] RBC (Bld) [#/Vol] 5.02 10*6/uL Normal 4.2-5.4 [facility] Comment on above: Order Comment: Order Date: 03/19/24 Order Info: [id number] - CBC Performed By: #### L 500.4100, L100.0500, L500.2500, L506.1000 #### [facility] [address] [place], [address] RDW SD 39.3 fl Normal 35.1-43.9 [facility] Comment on above: Order Comment: Order Date: 03/19/24 Order Info: [id number] - CBC Performed By: #### L 500.4100, L100.0500, L500.2500, L506.1000 #### [facility] [address] [place], [address] WBC (Bld) [#/Vol] 3.7 10*3/uL Low 4.4-11.0 [facility] Comment on above: Order Comment: Order Date: 03/19/24 Order Info: [id number] - CBC Performed By: #### L 500.4100, L100.0500, L500.2500, L506.1000 #### [facility] [address] [place], [address] Lipid Profileon 03-23-2024 Cholesterol [Mass/Vol] 292 mg/dL High 200 [facility] Comment on above: Order Comment: Order Date: 03/19/24 Order Info: 0667-1 - BMP Order Info: [id number] - LIPID Order Info: [id number] - TSH Result Comment: <200 mg/dL Desirable 200-240 mg/dL Borderline >240 mg/dL High Risk Performed By: #### L 500.4100, L100.0500, L500.2500, L506.1000 #### [facility] [address] [place], [address] Cholesterol in HDL [Mass/Vol] 84 mg/dL Normal [facility] Comment on above: Order Comment: Order Date: 03/19/24 Order Info: 0667-1 - BMP Order Info: [id number] - LIPID Order Info: 3016-3 - TSH Result Comment: The drugs N-Acetylcysteine and Metamizole may falsely depress this assay. Reference Range HDL <40 mg/dL Low HDL Cholesterol HDL >or= 60 mg/dL High HDL Cholesterol Performed By: #### L 500.4100, L100.0500, L500.2500, L506.1000 #### [facility] [address] [place], [address] Cholesterol in LDL [Mass/Vol] 192 mg/dL High 0-130 [facility] Comment on above: Order Comment: Order Date: 03/19/24 Order Info: 666-08 - BMP Order Info: - LIPID Order Info: [id number] - TSH Performed By: #### L 500.4100, L100.0500, L500.2500, L506.1000 #### [facility] [address] [place], [address] Cholesterol in VLDL [Mass/Vol] 16 mg/dL Normal 5-40 [facility] Comment on above: Order Comment: Order Date: 03/19/24 Order Info: 666-08 - BMP Order Info: - LIPID Order Info: [id number] - TSH Performed By: #### L 500.4100, L100.0500, L500.2500, L506.1000 #### [facility] [address] [place], [address] Triglyceride [Mass/Vol] 80 mg/dL Normal [facility] Comment on above: Order Comment: Order Date: 03/19/24 Order Info: 666-08 - BMP Order Info: - LIPID Order Info: [id number] - TSH Result Comment: The drugs N-Acetylcysteine and Metamizole may falsely depress this assay. Serum Triglycerides Reference Interval Normal <150 mg/dL Borderline high 150 - 199 mg/dL High 200 - 499 mg/dL Very High > or = 500 mg/dL Performed By: #### L 500.4100, L100.0500, L500.2500, L506.1000 #### [facility] [address] [place], [address] Thyroid Stim Hormone (TSH)on 03-23-2024 TSH 1.59 uIU/mL Normal 0.358-3.74 [facility] Comment on above: Order Comment: Order Date: 03/19/24 Order Info: 666-08 - BMP Order Info: - LIPID Order Info: [id number] - TSH Performed By: #### L 500.4100, L100.0500, L500.2500, L506.1000 #### [facility] [address] [place], [address] Vitamin D,25 Hydroxyon 03-23 Vitamin D 25-OH 62.3 ng/mL Normal [facility] Comment on above: Order Comment: Order Date: 03/19/24 Order Info: [id number] - VITD25 Result Comment: Liss min D 25(OH) Status Range Deficiency <20 ng/mL (50nmol/L) Insufficiency 20 - 30 ng/mL (50 - 75 nmol/L) Sufficiency 30 - 100 ng/mL (75 - 250 nmol/L) Toxicity >100 ng/mL (>250 nmol/L) Performed By: #### L 500.4100, L100.0500, L500.2500, L506.1000 #### [facility] [address] [place], [address] Absolute lymphocyte countOrd ered By: Luke Peters on 10-22-2023 Lymphocytes Auto (Unsp spec) [#/Vol] 1.60 10*3/uL 0.83-4.51 [facility] Automated lymphocyte count a s percentage of total leukocytesOrdered By: Luke Peters on 10-22-2023 Lymphocytes/100 WBC Auto (Unsp spec) 37.8 % 19-41 [facility] Basophil percentageOrdered B y: Luke Peters on 10-22-2023 Basophils/100 WBC (Bld) 2.4 % 0-1 [facility] Bilirubin [Mass/Vol] 0.50 mg/dL 0.20-1.00 [facility] Comment on above: For patients on eltr ombopag therapy, use of Dimension Bunnlevel TBIL is not recommended. Chloride [Moles/Vol] 106 mmol/L 98-107 [facility] Eosinophils/100 WBC (Bld) 10.2 % 0-5 [facility] Glucose [Mass/Vol] 91 mg/dL 74-106 [facility] Hemoglobin (Bld) [Mass/Vol] 14.3 g/dL 12.0-15.0 [facility] Monocytes/100 WBC (Bld) 10.6 % 0-10 [facility] Neutrophils (Bld) [#/Vol] 1.6 10*3/uL 2.0-7.7 [facility] Neutrophils/100 WBC (Bld) 38.8 % 47-70 [facility] Potassium [Moles/Vol] 3.9 mmol/L 3.5-5.1 [facility] Protein [Mass/Vol] 7.3 g/dL 6.4-8.2 [facility] Sodium [Moles/Vol] 137 mmol/L 136-145 [facility] WBC (Bld) [#/Vol] 4.2 10*3/uL 4.4-11.0 [facility] Determination of erythrocyte mean corpuscular volume (MCV)Ordered By: Luke Peters on 10-22-2023 MCV (RBC) [Entitic vol] 87.0 fL 81-99 [facility] Erythrocyte distribution wid th ratioOrdered By: Luke Peters on 10-22-2023 Erythrocyte distribution width (RBC) [Ratio] 12.3 % 11.6-14.6 [facility] Erythrocyte distribution wid th standard deviationOrdered By: Luke Peters on 10-22-2023 Erythrocyte distribution width (RBC) [Entitic vol] 39.4 fL 35.1-43.9 [facility] Hematocrit Auto (Bld) [Volum e fraction]Ordered By: Luke Peters on 10-22-2023 Hematocrit (Bld) [Volume fraction] 42.3 % 37-47 [facility] Immature granulocytes/100 WB C Auto (Bld)Ordered By: Luke Peters on 10-22-2023 Immature granulocytes/100 WBC (Bld) 0.200 % 0.0-0.9 [facility] Comment on above: IG% - Immature Granu locytes (promyelocytes, myelocytes and metamyelocytes) > 1% indicates that a LEFT SHIFT is Present. Laboratory - Chemistry and C hemistry - challengeOrdered By: Luke Peters on 10-22-2023 Albumin/Globulin [Mass ratio] 1.0 {ratio} 0.9-2.4 [facility] ALP [Catalytic activity/Vol] 81 U/L 45-117 [facility] ALT [Catalytic activity/Vol] 22 U/L 13-56 [facility] CO2 [Moles/Vol] 29.0 mmol/L 21.0-32.0 [facility] Globulin (S) [Mass/Vol] 3.7 g/dL 2.2-4.2 [facility] Urea nitrogen/Creatinine [Mass ratio] 22.9 mg/mg 10-20 [facility] Laboratory - Hematology and Cell countsOrdered By: Luke Peters on 10-22-2023 MCH (RBC) [Entitic mass] 29.4 pg 27.0-32.0 [facility] MCHC (RBC) [Mass/Vol] 33.8 g/dL 32-36 [facility] Nucleated RBC/100 WBC (Bld) [Ratio] 0 % 0-5 [facility] Platelet mean volume (Bld) [Entitic vol] 9.4 fL 6.2-12.0 [facility] Platelets (Bld) [#/Vol] 305 10*3/uL 150-450 [facility] No Panel InformationOrdered By: Luke Peters on 10-22-2023 Carbamazepine (Tegretol) Level 6.7 ug/mL 4.0-12.0 [facility] Estimated GFR (MDRD) Amer 105 mL/min >60 [facility] Comment on above: GFR Calc Estimated GFR (MDRD) Non-Af Amer 87 mL/min >60 [facility] Comment on above: Non- GFR Calc RBC Auto (Bld) [#/Vol]Ordere d By: Luke Peters on 10-22-2023 RBC (Bld) [#/Vol] 4.86 10*6/uL 4.2-5.4 [facility] Serum or plasma calcium malena urement (mass/volume)Ordered By: Luke Peters on 10-22-2023 Calcium [Mass/Vol] 9.2 mg/dL 8.5-10.1 [facility] Serum or plasma creatinine m easurement (mass/volume)Ordered By: Luke Peters on 10-22-2023 Creatinine [Mass/Vol] 0.74 mg/dL 0.55-1.02 [facility] Comment on above: The validity of the calculated GFR & GFRAA in patients over 70 years has not been determined. Clinical correlation is essential. Serum or plasma urea nitroge n measurement (mass/volume)Ordered By: Luke Peters on 10-22-2023 Urea nitrogen [Mass/Vol] 17 mg/dL 7-18 [facility] Thin prep Papanicolaou smear with manual screeningOrdered By: Luke Peters on 10-22-2023 Thin prep Papanicolaou smear with manual screening 3.6 g/dL 3.2-5.0 [facility] Thin prep Papanicolaou smear with manual screening 14 U/L 15-37 [facility] Thin prep Papanicolaou smear with manual screening 2 5-15 [facility] Basophil percentageOrdered B y: Taylor Dsouza on 03-15-2023 Cholesterol [Mass/Vol] 312 mg/dL <200 [facility] Comment on above: <200 mg/dL Desirable 200-240 mg/dL Borderline >240 mg/dL High Risk Triglyceride [Mass/Vol] 79 mg/dL <199 [facility] Comment on above: The drugs N-Acetylcy steine and Metamizole may falsely depress this assay.Serum Triglycerides Reference Interval Normal <150 mg/dL Borderline high 150 - 199 mg/dL High 200 - 499 mg/dL Very High > or = 500 mg/dL Serum or plasma cholesterol in HDL measurement (mass/volume)Ordered By: Taylor Dsouza on 03-15-2023 Cholesterol in HDL [Mass/Vol] 97 mg/dL >40 [facility] Comment on above: The drugs N-Acetylcy steine and Metamizole may falsely depress this assay. Reference Range HDL <40 mg/dL Low HDL Cholesterol HDL >or= 60 mg/dL High HDL Cholesterol Serum or plasma cholesterol in VLDL measurement (mass/volume)Ordered By: Taylor Dsouza on 03-15-2023 Cholesterol in VLDL [Mass/Vol] 16 mg/dL 5-40 [facility] Serum or plasma low density lipoprotein (LDL) cholesterol measurement (mass/volume)Ordered By: Taylor Dsouza on 03-15-2023 Cholesterol in LDL [Mass/Vol] 199 mg/dL 0-130 [facility] [facility] Absolute lymphocyte countOrd ered By: Taylor Dsozua on 09-03-2022 Lymphocytes Auto (Unsp spec) [#/Vol] 2.11 10*3/uL 0.83-4.51 [facility] Basophil percentageOrdered B y: Taylor Dsouza on 09-03-2022 Basophils/100 WBC (Bld) 1.9 % 0-1 [facility] Bilirubin [Mass/Vol] 0.40 mg/dL 0.20-1.00 [facility] Comment on above: For patients on eltr ombopag therapy, use of Dimension Bunnlevel TBIL is not recommended. Chloride [Moles/Vol] 105 mmol/L 98-107 [facility] Cholesterol [Mass/Vol] 300 mg/dL <200 [facility] Comment on above: <200 mg/dL Desirable 200-240 mg/dL Borderline >240 mg/dL High Risk Eosinophils/100 WBC (Bld) 9.9 % 0-5 [facility] Glucose [Mass/Vol] 93 mg/dL 74-106 [facility] Neutrophils (Bld) [#/Vol] 2.4 10*3/uL 2.0-7.7 [facility] Neutrophils/100 WBC (Bld) 41.6 % 47-70 [facility] Potassium [Moles/Vol] 4.0 mmol/L 3.5-5.1 [facility] Protein [Mass/Vol] 7.4 g/dL 6.4-8.2 [facility] Sodium [Moles/Vol] 138 mmol/L 136-145 [facility] Triglyceride [Mass/Vol] 66 mg/dL <199 [facility] Comment on above: The drugs N-Acetylcy steine and Metamizole may falsely depress this assay.Serum Triglycerides Reference Interval Normal <150 mg/dL Borderline high 150 - 199 mg/dL High 200 - 499 mg/dL Very High > or = 500 mg/dL WBC (Bld) [#/Vol] 5.8 10*3/uL 4.4-11.0 [facility] Blood erythrocytes count (nu mber/volume)Ordered By: Taylor Dsouza on 09-03-2022 RBC (Bld) [#/Vol] 5.07 10*6/uL 4.2-5.4 [facility] Blood hemoglobin measurement (mass/volume)Ordered By: Taylor Dsouza on 09-03-2022 Hemoglobin (Bld) [Mass/Vol] 14.8 g/dL 12.0-15.0 [facility] Blood lymphocytes/100 leukoc ytesOrdered By: Taylor Dsouza on 09-03-2022 Lymphocytes/100 WBC (Bld) 36.5 % 19-41 [facility] Blood monocytes/100 leukocyt esOrdered By: Taylor Dsouza on 09-03-2022 Monocytes/100 WBC (Bld) 9.9 % 0-10 [facility] Blood platelet mean volumeOr dered By: Taylor Dsouza on 09-03-2022 Platelet mean volume (Bld) [Entitic vol] 9.5 fL 6.2-12.0 [facility] Determination of erythrocyte mean corpuscular volume (MCV)Ordered By: Taylor Dsouza on 09-03-2022 MCV (RBC) [Entitic vol] 88.0 fL 81-99 [facility] Hematocrit Auto (Bld) [Volum e fraction]Ordered By: Taylor Dsouza on 09-03-2022 Hematocrit (Bld) [Volume fraction] 44.6 % 37-47 [facility] Laboratory - Chemistry and C hemistry - challengeOrdered By: Taylor Dsouza on 09-03-2022 ALP [Catalytic activity/Vol] 83 U/L 45-117 [facility] ALT [Catalytic activity/Vol] 23 U/L 13-56 [facility] CO2 [Moles/Vol] 31.0 mmol/L 21.0-32.0 [facility] Globulin (S) [Mass/Vol] 3.9 g/dL 2.2-4.2 [facility] Urea nitrogen/Creatinine [Mass ratio] 18.8 mg/mg 10-20 [facility] Laboratory - Hematology and Cell countsOrdered By: Taylor Dsouza on 09-03-2022 Erythrocyte distribution width (RBC) [Entitic vol] 39.5 fL 35.1-43.9 [facility] Erythrocyte distribution width (RBC) [Ratio] 12.3 % 11.6-14.6 [facility] Immature granulocytes/100 WBC (Bld) 0.200 % 0.0-0.9 [facility] Comment on above: IG% - Immature Granu locytes (promyelocytes, myelocytes and metamyelocytes) > 1% indicates that a LEFT SHIFT is Present. MCH (RBC) [Entitic mass] 29.2 pg 27.0-32.0 [facility] Nucleated RBC/100 WBC (Bld) [Ratio] 0 % 0-5 [facility] MCHC Auto (RBC) [Mass/Vol]Or dered By: Taylor Dsouza on 09-03-2022 MCHC (RBC) [Mass/Vol] 33.2 g/dL 32-36 [facility] No Panel InformationOrdered By: Taylor Dsouza on 09-03-2022 Estimated GFR (MDRD) Amer 114 mL/min >60 [facility] Comment on above: GFR Calc Estimated GFR (MDRD) Non-Af Amer 94 mL/min >60 [facility] Comment on above: Non- GFR Calc Miscellaneous Test See comment [facility] Comment on above: TEST RESULT LIMITSCa rbamazepine(Tegretol), S 7.2 ug/mL 4.0-12.0 In conjunction with other antiepileptic drugs Therapeutic 4.0 - 8.0 Toxicity 9.0 - 12.0 Carbamazepine alone Therapeutic 8.0 - 12.0 Detection Limit = 2.0 <2.0 indicated None Detected ____ TESTING PERFORMED AT [facility]. ORIGINAL REPORT ON FILE IN LAB CONTAINS ADDITIONAL TEST SITE INFORMATION. Platelets bldOrdered By: Michael Dsouza on 09-03-2022 Platelets (Bld) [#/Vol] 346 10*3/uL 150-450 [facility] Serum or plasma albumin malena urement (mass/volume)Ordered By: Taylor Dsouza on 09-03-2022 Albumin [Mass/Vol] 3.5 g/dL 3.2-5.0 [facility] Serum or plasma albumin/glob ulin mass ratioOrdered By: Taylor Dsouza on 09-03-2022 Albumin/Globulin [Mass ratio] 0.9 {ratio} 0.9-2.4 [facility] Serum or plasma calcium malena urement (mass/volume)Ordered By: Taylor Dsouza on 09-03-2022 Calcium [Mass/Vol] 9.0 mg/dL 8.5-10.1 [facility] Serum or plasma cholesterol in HDL measurement (mass/volume)Ordered By: Taylor Dsouza on 09-03-2022 Cholesterol in HDL [Mass/Vol] 94 mg/dL >40 [facility] Comment on above: The drugs N-Acetylcy steine and Metamizole may falsely depress this assay. Reference Range HDL <40 mg/dL Low HDL Cholesterol HDL >or= 60 mg/dL High HDL Cholesterol Serum or plasma cholesterol in VLDL measurement (mass/volume)Ordered By: Taylor Dsouza on 09-03-2022 Cholesterol in VLDL [Mass/Vol] 13 mg/dL 5-40 [facility] Serum or plasma creatinine m easurement (mass/volume)Ordered By: Taylor Dsouza on 09-03-2022 Creatinine [Mass/Vol] 0.69 mg/dL 0.55-1.02 [facility] Comment on above: The validity of the calculated GFR & GFRAA in patients over 70 years has not been determined. Clinical correlation is essential. Serum or plasma low density lipoprotein (LDL) cholesterol measurement (mass/volume)Ordered By: Taylor Dsouza on 09-03-2022 Cholesterol in LDL [Mass/Vol] 193 mg/dL 0-130 [facility] Serum or plasma urea nitroge n measurement (mass/volume)Ordered By: Taylor Dsouza on 09-03-2022 Urea nitrogen [Mass/Vol] 13 mg/dL 7-18 [facility] Thin prep Papanicolaou smear with manual screeningOrdered By: Taylor Dsouza on 09-03-2022 Thin prep Papanicolaou smear with manual screening 14 U/L 15-37 [facility] Thin prep Papanicolaou smear with manual screening 2 5-15 [facility] Absolute lymphocyte counton 03-13-2022 Lymphocytes Auto (Unsp spec) [#/Vol] 2.04 10*3/uL 0.83-4.51 [facility] Work Phone: [phone] Basophil percentageon 03-13- 2021 Basophils/100 WBC (Bld) 1.7 % 0-1 [facility] Work Phone: [phone] Bilirubin [Mass/Vol] 0.40 mg/dL 0.20-1.00 [facility] Work Phone: [phone] Comment on above: For patients on eltr ombopag therapy, use of Dimension Bunnlevel TBIL is not recommended. Chloride [Moles/Vol] 105 mmol/L 98-107 [facility] Work Phone: Cholesterol [Mass/Vol] 283 mg/dL <200 [facility] Work Phone: Comment on above: <200 mg/dL Desirable 200-240 mg/dL Borderline >240 mg/dL High Risk Eosinophils/100 WBC (Bld) 9.7 % 0-5 [facility] Work Phone: Glucose [Mass/Vol] 96 mg/dL 74-106 [facility] Work Phone: Neutrophils (Bld) [#/Vol] 1.7 10*3/uL 2.0-7.7 [facility] Work Phone: [phone] Neutrophils/100 WBC (Bld) 36.9 % 47-70 [facility] Work Phone: Potassium [Moles/Vol] 4.0 mmol/L 3.5-5.1 [facility] Work Phone: [phone] Protein [Mass/Vol] 7.1 g/dL 6.4-8.2 [facility] Work Phone: [phone] Sodium [Moles/Vol] 139 mmol/L 136-145 [facility] Work Phone: [phone] Triglyceride [Mass/Vol] 72 mg/dL <199 [facility] Work Phone: [phone] Comment on above: The drugs N-Acetylcy steine and Metamizole may falsely depress this assay.Serum Triglycerides Reference Interval Normal <150 mg/dL Borderline high 150 - 199 mg/dL High 200 - 499 mg/dL Very High > or = 500 mg/dL WBC (Bld) [#/Vol] 4.6 10*3/uL 4.4-11.0 [facility] Work Phone: Blood erythrocytes count (nu mber/volume)on 03-13-2022 RBC (Bld) [#/Vol] 4.87 10*6/uL 4.2-5.4 [facility] Work Phone: Blood hemoglobin measurement (mass/volume)on 03-13-2022 Hemoglobin (Bld) [Mass/Vol] 14.2 g/dL 12.0-15.0 [facility] Work Phone: Blood lymphocytes/100 leukoc yteson 03-13-2022 Lymphocytes/100 WBC (Bld) 44.0 % 19-41 [facility] Work Phone: Blood monocytes/100 leukocyt eson 03-13-2022 Monocytes/100 WBC (Bld) 7.5 % 0-10 [facility] Work Phone: Blood platelet mean volumeon 03-13-2022 Platelet mean volume (Bld) [Entitic vol] 9.6 fL 6.2-12.0 [facility] Work Phone: Determination of erythrocyte mean corpuscular volume (MCV)on 03-13-2022 MCV (RBC) [Entitic vol] 88.1 fL 81-99 [facility] Work Phone: Hematocrit Auto (Bld) [Volum e fraction]on 03-13-2022 Hematocrit (Bld) [Volume fraction] 42.9 % 37-47 [facility] Work Phone: Laboratory - Chemistry and C hemistry - challengeon 03-13-2022 ALP [Catalytic activity/Vol] 75 U/L 45-117 [facility] Work Phone: ALT [Catalytic activity/Vol] 22 U/L 13-56 [facility] Work Phone: CO2 [Moles/Vol] 28.0 mmol/L 21.0-32.0 [facility] Work Phone: Globulin (S) [Mass/Vol] 3.7 g/dL 2.2-4.2 [facility] Work Phone: Urea nitrogen/Creatinine [Mass ratio] 24.7 mg/mg 10-20 [facility] Work Phone: Laboratory - Hematology and Cell countson 03-13-2022 Erythrocyte distribution width (RBC) [Entitic vol] 39.9 fL 35.1-43.9 [facility] Work Phone: Erythrocyte distribution width (RBC) [Ratio] 12.3 % 11.6-14.6 [facility] Work Phone: Immature granulocytes/100 WBC (Bld) 0.200 % 0.0-0.9 [facility] Work Phone: Comment on above: IG% - Immature Granu locytes (promyelocytes, myelocytes and metamyelocytes) > 1% indicates that a LEFT SHIFT is Present. MCH (RBC) [Entitic mass] 29.2 pg 27.0-32.0 [facility] Work Phone: Nucleated RBC/100 WBC (Bld) [Ratio] 0 % 0-5 [facility] Work Phone: MCHC Auto (RBC) [Mass/Vol]on 03-13-2022 MCHC (RBC) [Mass/Vol] 33.1 g/dL 32-36 [facility] Work Phone: No Panel Informationon 03-13 Estimated GFR (MDRD) Amer 107 mL/min >60 [facility] Work Phone: Comment on above: GFR Calc Estimated GFR (MDRD) Non-Af Amer 89 mL/min >60 [facility] Work Phone: Comment on above: Non- GFR Calc Thyroid Stimulating Hormone (TSH) 1.58 uIU/mL 0.358-3.74 [facility] Work Phone: Platelets bldon 03-13-2022 Platelets (Bld) [#/Vol] 317 10*3/uL 150-450 [facility] Work Phone: Serum or plasma albumin malena urement (mass/volume)on 03-13-2022 Albumin [Mass/Vol] 3.4 g/dL 3.2-5.0 [facility] Work Phone: Serum or plasma albumin/glob ulin mass ratioon 03-13-2022 Albumin/Globulin [Mass ratio] 0.9 {ratio} 0.9-2.4 [facility] Work Phone: Serum or plasma calcium malena urement (mass/volume)on 03-13-2022 Calcium [Mass/Vol] 8.8 mg/dL 8.5-10.1 [facility] Work Phone: Serum or plasma cholesterol in HDL measurement (mass/volume)on 03-13-2022 Cholesterol in HDL [Mass/Vol] 82 mg/dL >40 [facility] Work Phone: Comment on above: The drugs N-Acetylcy steine and Metamizole may falsely depress this assay. Reference Range HDL <40 mg/dL Low HDL Cholesterol HDL >or= 60 mg/dL High HDL Cholesterol Serum or plasma cholesterol in VLDL measurement (mass/volume)on 03-13-2022 Cholesterol in VLDL [Mass/Vol] 14 mg/dL 5-40 [facility] Work Phone: Serum or plasma creatinine m easurement (mass/volume)on 03-13-2022 Creatinine [Mass/Vol] 0.73 mg/dL 0.55-1.02 [facility] Work Phone: Comment on above: The validity of the calculated GFR & GFRAA in patients over 70 years has not been determined. Clinical correlation is essential. Serum or plasma low density lipoprotein (LDL) cholesterol measurement (mass/volume)on 03-13-2022 Cholesterol in LDL [Mass/Vol] 187 mg/dL 0-130 [facility] Work Phone: Serum or plasma urea nitroge n measurement (mass/volume)on 03-13-2022 Urea nitrogen [Mass/Vol] 18 mg/dL 7-18 [facility] Work Phone: Thin prep Papanicolaou smear with manual screeningon 03-13-2022 Thin prep Papanicolaou smear with manual screening 13 U/L 15-37 [facility] Work Phone: Thin prep Papanicolaou smear with manual screening 6 5-15 [facility] Work Phone: Whole blood hemoglobin A1c/t otal hemoglobin ratio (mass fraction)on 03-13-2022 HbA1c (Bld) [Mass fraction] 5.4 % 3.8-5.6 [facility] Work Phone: Comment on above: Normal < 5.7 % Predi abetic 5.7 - 6.4 % Diabetic >or= 6.5 % Please note range changes. Encounters Encounter Date Encounter Type Care Provider Facility Start: 12-12-2024 End: 12-12-2024 ambulatory Everton James Facility:[facility] Start: 11-28-2024 End: 11-28-2024 ambulatory Chalon James Facility:[facility] Start: 11-12-2024 ambulatory Chalon James Facility:[facility] Start: 10-27-2024 End: 10-27-2024 ambulatory Brittany Raimrez MD Work Phone: [facility] Work Phone: Start: 10-27-2024 End: 10-27-[address] Luke Peters MD -Laboratory Work Phone: Start: 10-27-2024 End: 10-27-2024 ambulatory Brittany Ramirez Facility:[facility] Start: 05-11-2024 End: 05-11-2024 ambulatory Neetu WOOTEN Facility:[facility] Start: 05-07-2024 End: 05-07-2024 ambulatory Chalon James Facility:[facility] Start: 05-02-2024 End: 05-02-2024 ambulatory [facility] Facility:[facility] Start: 04-19-2024 End: 04-19-2024 ambulatory [facility] Facility:[facility] Start: 03-23-2024 End: 03-23-2024 ambulatory [facility] Facility:[facility] Start: 10-22-2023 End: 10-22-2023 ambulatory [facility] Work Phone: Start: 10-22-2023 End: 10-22-2023 Patient encounter procedure [facility]Laboratory Work Phone: Start: 03-15-2023 End: 03-15-2023 ambulatory [facility] Work Phone: Start: 03-15-2023 End: 03-15-2023 Patient encounter procedure [facility] Work Phone: Start: 09-03-2022 End: 09-03-2022 ambulatory [facility] Work Phone: Start: 09-03-2022 End: 09-03-2022 Patient encounter procedure [facility]Laboratory Start: 04-05-2022 End: 04-05-2022 Patient encounter procedure [facility]Outpatient [facility] Start: 03-13-2022 End: 03-13-2022 Patient encounter procedure [facility] Procedures Date Procedure Procedure Detail Performing Clinician Start: 04-05-2022 Screening mammography Payers Date Payer Category Payer Self-pay [id number] 2008 Unknown [id number] Unknown [id number] Unknown [id number] 2.16.8 [id number] Unknown [id number] 2.16.8 [id number] Unknown [id number] 2.16.8 [id number] Unknown [id number] 2.16.8 [id number] Unknown [id number] 2.16.8 [id number] Unknown [id number] 2.16.8 [id number] Unknown [id number] 2.16.8 [id number] Unknown [id number] 2.16.8 [id number] Unknown [id number] 2.16.8 [id number] Unknown [id number] 2.16.8 [id number] Social History Date Type Detail Facility Tobacco smoking stat [facility] Unknown if ever smoked [facility] Work Phone: Start: 1970 Sex Assigned At Female [facility] Tobacco smoking stat [facility] Unknown if ever smoked [facility] Work Phone: Start: 11-08-2024 Sex Female (finding) [facility] Evaluation note Note Date & Type Note Facility Evaluation note No assessment information availa [facility] Work Phone: Reason for referral (narrative) Note Date & Type Note Facility Reason for referral (narrative) No reason for referral information available [facility] Work Phone: Chief Complaint and Reason for Visit Chief Complaint SCREENING Chief Complaint 2 ORDERING DOCTORS Summary Purpose Family History No Family History Records Found Advance Directives No Advanced Directives Records Found Additional Source Comments Goals (unrecognized section and content) Goals may be documented in a n alternate sectionGoals may be documented in an alternate sectionGoals may be documented in an alternate sectionGoals may be documented in an alternate sectionGoals may be documented in an alternate sectionGoals may be documented in an alternate section Care Teams (unrecognized sec tion and content) Team Status: Active Member Role Status Dates Dr. Camilo Stover MD Family Provider Active Dr. Camilo Lund MD Primary Care Provider Active Team Status: Inactive Member Role Status Dates Dr. Camilo Lund MD Primary Care Provider Active Dr. Luke Peters MD Attending Provider, Referring Pro vider Active Taylor Dsouza , DO Other Provider Active Team Status: Active Member Role Status Dates Dr. Camilo Stover MD Family Provider Active Taylor Dsouza , DO Primary Care Provider Active Team Status: Inactive Member Role Status Dates Taylor Dsouza , DO Primary Care Provi owen, Attending Provider, Referring Provider Active Team Status: Inactive Member Role Status Dates Taylor Dsouza , DO Primary Care Provider Active Dr. Luke Peters MD Attending Provider, Referring Pro vider Active Team Status: Active Member Role Status Dates Brittany Ramirez MD Primary Care Provider Active Team Status: Inactive Member Role Status Dates Brittany Ramirez MD Primary Care Provider Active St art: October 27, 2024 End: October 27, 2024 Dr. Luke Peters MD Attending Provider Active S tart: October 27, 2024 End: October 27, 2024 Dr. Luke Peters MD Referring Provider Active S tart: October 27, 2024 End: October 27, 2024 INFORMATION SOURCE (unrecogn ized section and content) DATE CREATED AUTHOR 12/14/2024 [facility] FOR RECORDS PERTAINING TO PATIENTS WHO ARE OR HAVE BEEN ENROLLED IN A CHEMICAL DEPENDENCY/SUBSTANCEABUSE PROGRAM, SOME INFORMATION MAY BE OMITTED. This clinical summary was aggregated from multiple sources. Caution should be exercised in using it in the provision of clinical care. This summary normalizes information from multiple sources, and as a consequence, information in this document may materially change the coding, format and clinical context of patient data. In addition, data may be omitted in some cases. CLINICAL DECISIONS SHOULD BE BASED ON THE PRIMARY CLINICAL RECORDS. [employer] provides no warranty or guarantee of the accuracy or completeness of information in this document.
[2025-04-27 08:13] LABS: Hematocrit 41.2 % (37-47); Hemoglobin 14.2 g/dL (12.0-15.0); Immature Granulocytes Count 0.020 X10^3/uL (0.0-0.0); Mean Corp Hgb Conc 34.5 g/dL (32-36); Mean Corpuscular Volume 86.4 fL (81-99); Mean Platelet Vol. 9.5 fl (6.2-12.0); NRBC Flagged by Analyzer 0 % (0-5); Platelet Count 308 K/mm3 (150-450); RBC Distribution Width CV 12.2 % (11.6-14.6); RBC Distribution Width SD 38.8 fl (35.1-43.9); Red Blood Count 4.77 M/mm3 (4.2-5.4); White Blood Count 4.7 K/mm3 (4.4-11.0)
[2025-04-27 08:49] LABS: AST(SGOT) 17 U/L (<=31); Alanine Aminotransfer ALT/SGPT 17 U/L (<=34); Albumin, Serum 4.1 g/dL (3.5-5.0); Alkaline Phosphatase 77 U/L (35-104); Anion Gap 12 (5-15); BUN 14 mg/dL (4-19); BUN/Creat Ratio 19.3 RATIO (10-20); Calcium,Total 9.3 mg/dL (7.6-11.0); Carbon Dioxide 24.5 mmol/L (21.0-32.0); Chloride 103 mmol/L (98-108); Cholesterol 280 mg/dL (<=200); Globulin 3.0 g/dL (2.2-4.2); Glucose 93 mg/dL (70-99); Low Density Lipoprotein Calc. 176 mg/dL; Potassium 3.8 mmol/L (3.3-5.1); Triglycerides 90 mg/dL; Very Low Density Lipoprotein 18 mg/dL (5-40); Vitamin D,25 Hydroxy 55.8 ng/mL (30-100); cholesterol:hdl ratio screen 3.24
== END | disposition home or self-care (01) ==
LOC: LAB 07:01
PROVIDERS: PCP Family Medicine; Referring Provider Family Medicine; Visit Provider Family Medicine
DX: E78.5 Hyperlipidemia, unspecified (principal)
CPT/HCPCS: 36415; 80053; 80061; 82306; 84443; 85025

== ENCOUNTER → 2025-05-17 | Outpatient (CLI) | payer BC, SELFPAY ==
--- OUTSIDE RECORDS SUMMARY | 2025-05-17 07:40 | XMS RPT_ITS | CCD ---
Author Organization [facility] Inform ion Partnership [facility] Care Team Providers Care Nurseryperson Name Role Phone James WHITLEY, Brittany Primary Care Provider Fran WHITLEY, Dr. Butler Attending Provider Unavailab Sophia WHITLEY, Dr. Butler Referring Provider Unavailab Deja WHITLEY, Brittany Primary Care Provider Brittany Ramirez MD Attending Provider James WHITLEY, Brittany Referring Provider [phone] Luke Peters Referring Unavailable James, Chalon Primary Care Unavailable Prah, Paco Attending Unavailable James, Brittany Attending Unavailable James, Brittany Referring Unavailable James, Chalon Primary Care Unavailable Luke Peters Referring Unavailable James, Chalon Primary Care Unavailable Luke Peters Attending Unavailable James, Chalon Primary Care Unavailable McMorrow LONE LEAD LINEMAN, Abilio Attending Unavailable McMorrow LONE LEAD LINEMAN, Abilio Referring Unavailable James, Chalon Primary Care Unavailable Prah, Paco Attending Unavailable Prah, Paco Referring Unavailable Prah, aPco Attending Unavailable James, Brittany Referring Unavailable James, Chalon Primary Care Unavailable James, Chalon Primary Care Unavailable Isaura Griffin Attending Unavailable Medications Current Medications Medication Drug Class(es) Dates Sig (Normalized) Sig (Original) Albuterol 90 mcg/actuation aerosol (1 source) Start: 11-12-2024 Albuterol 90 mcg/actuation aerosol Active ug INHALATION November 12, 2024 12:00am black cumin (1 source) Start: 11-28-2024 take 500 mg by mouth twice daily black cumin Active 500 mg PO TWICE A DAY November 28, 2024 12:00am bone care (1 source) Start: 11-28-2024 bone care Active PO DAILY November 28, 2024 12:00am calcium ascorbate 500 mg oral tablet (1 source) Start: 11-28-2024 take 3 tablets by mouth once daily Ascorbate Calcium (Vitamin C) 500 mg tablet Active 1500 mg PO daily November 28, 2024 12:00am 12 hr carBAMazepine 300 mg extended release oral capsule (1 source) Mood Stabilizer Start: 11-12-2024 take 1 capsule by mouth twice daily Carbamazepine 300 mg capsule, ER multiphase 12 hr Active 300 mg PO TWICE A DAY November 12, 2024 12:00am cholecalciferol 0.05 mg oral capsule (1 source) Vitamin D Start: 11-12-2024 take 1 capsule by mouth once daily Cholecalciferol (Vitamin D3) 50 mcg (2,000 unit) capsule Active 50 ug PO daily November 12, 2024 12:00am [place] 7-Klm-Knu-Fish Oil (1 source) Start: 11-12-2024 [place] 5-Jav-Qju-Fish Oil (Fish Oil) 300-1,000 mg capsule Active 1 NMA PO daily November 12, 2024 12:00am 30 actuat fluticasone furoate 0.1 mg/actuat dry powder inhaler (1 source) Corticosteroid Start: 11-12-2024 take 100 ug by inhalation every twenty-four hours Fluticasone Furoate (Arnuity Ellipta) 100 mcg/actuation blister with device Active 1 NMA INHALATION Q24H November 12, 2024 12:00am Multivitamin-Iron (Hematinic) tablet (1 source) Start: 11-28-2024 Multivitamin-Iron (Hematinic) tablet Active {tbl} PO DAILY November 28, 2024 12:00am red yeast rice 600 mg oral capsule (2 sources) Start: 11-28-2024 take 1 capsule by mouth twice daily Red Yeast Rice 600 mg capsule Active 600 mg PO TWICE A DAY November 28, 2024 10:22am give with meal/snack Start: 11-12-2024 End: 11-28-2024 take 1 capsule by mouth once daily Red Yeast Rice 600 mg capsule Discontinued 600 mg PO daily November 12, 2024 12:00am November 28, 2024 10:27am give with meal/snack zinc gluconate 50 mg oral tablet (1 source) Start: 11-12-2024 take 1 tablet by mouth once daily Zinc Gluconate 50 mg tablet Active 50 mg PO daily November 12, 2024 12:00am Completed/Discontinued Medications Medication Drug Class(es) Dates Sig (Normalized) Sig (Original) calcium carbonate 1250 mg chewable tablet (1 source) Start: 11-12-2024 End: 11-28-2024 take 1 tablet by mouth once daily Calcium Carbonate 500 mg calcium (1,250 mg) tablet,chewable Discontinued 500 mg PO daily November 12, 2024 12:00am November 28, 2024 10:26am gabapentin 100 mg oral capsule (1 source) Anti-epileptic Agent Start: 11-12-2024 End: 11-28-2024 take 1 capsule by mouth once daily Gabapentin 100 mg capsule Discontinued 100 mg PO daily November 12, 2024 12:00am November 28, 2024 10:26am Multivitamin With Minerals (One Daily Complete) tablet (1 source) Start: 11-28-2024 take 1 tablet by mouth once daily Multivitamin With Minerals (One Daily Complete) tablet Active 1 {tbl} PO daily November 28, 2024 12:00am rosuvastatin calcium 10 mg oral tablet (1 source) HMG-CoA Reductase Inhibitor Start: 11-12-2024 End: 11-28-2024 take 1 tablet by mouth once daily Rosuvastatin 10 mg tablet Discontinued 10 mg PO daily November 12, 2024 12:00am November 28, 2024 10:26am Sod Sulf-Pot Chloride-Mag Sulf (1 source) Start: 11-12-2024 End: 11-28-2024 take 1.479 tablets by mouth once Sod Sulf-Pot Chloride-Mag Sulf (Sutab) 1.479-0.188- 0.225 gram tablet Discontinued 0 PO per package directions November 12, 2024 12:00am November 28, 2024 10:26am PO PER PKG DIR tiZANidine 4 mg oral capsule (1 source) Central alpha-2 Adrenergic Agonist Start: 11-12-2024 End: 11-28-2024 take 1 capsule by mouth three times daily as needed Tizanidine 4 mg capsule Discontinued 4 mg PO THREE TIMES A DAY as needed November 12, 2024 12:00am November 28, 2024 10:26am Problems Problem Classification Problem Date Documented Da te Episodic/Chronic Diseases of white blood cells (3 sources) Leukopenia; Translations: [Decreased white blood cell count, unspecified] Onset: 12-12-2024 12-12-2024 Chronic Comment on above: WBC was 4.6 on 025 with normal differential.Reassured her. Disorders of lipid metabolism (1 source) Hyperlipidemia, unspecified; Translations: [Hyperlipidemia, unspecified] Onset: 05-07-2025 Chronic Epilepsy; convulsions (1 source) Epilepsy, unspecified, not intractable, without status epilepticus; Translations: [Epilepsy, unspecified, not intractable, without status epilepticus] Onset: 11-08-2024 Chronic Other screening for suspected conditions (not mental disorders or infectious disease) (2 sources) Encounter for screening mammogram for malignant neoplasm of breast; Translations: [Encounter for other screening for malignant neoplasm of breast] Onset: 05-13-2025 Episodic Results Test Name Value Interpretation Reference Range Facility Absolute lymphocyte countOrd ered By: Brittany Ramirez on 04-27-2025 Lymphocytes Auto (Unsp spec) [#/Vol] 1.59 10*3/uL 0.83-4.51 [facility] Absolute neutrophil countOrd ered By: Brittany Ramirez on 04-27-2025 Neutrophils (Bld) [#/Vol] 2.0 10*3/uL 2.0-7.7 [facility] Anion gap in Serum or Plasma Ordered By: Brittany Ramirez on 04-27-2025 Anion gap [Moles/Vol] 12 mmol/L 5-[address] [facility] Automated lymphocyte count a s percentage of total leukocytesOrdered By: Brittany Ramirez on 04-27-2025 Lymphocytes/100 WBC Auto (Unsp spec) 34.0 % 19-41 [facility] BUN/creatinine ratioOrdered By: [facility] on 04-27-2025 Urea nitrogen/Creatinine [Mass ratio] 19.3 mg/mg 10-20 [facility] Basophil percentageOrdered B y: Brittany Ramirez on 04-27-2025 Basophils/100 WBC (Bld) 2.1 % High 0-1 [facility] Bilirubin, totalOrdered By: Brittany Ramirez on 04-27-2025 Bilirubin [Mass/Vol] 0.40 mg/dL 0.00-1.30 [facility] CBC W/Diff, Automatedon 6-2024 Absolute Lymph 1.59 X10 3/uL Normal 0.83-4.51 [facility] Comment on above: Order Comment: Order Date: 04/16/25Order Info: [id number] - CBCD Performed By: #### L 100.0100, L501.9520, L500.4050, L500.4100 ####[facility] [address] [place], [address] Absolute Neut 2.0 X10 3/uL Normal 2.0-7.7 [facility] Comment on above: Order Comment: Order Date: 04/16/25Order Info: [id number] - CBCD Performed By: #### L 100.0100, L501.9520, L500.4050, L500.4100 ####[facility] [address] [place], [address] Basophils/100 WBC (Bld) 2.1 % High 0-1 [facility] Comment on above: Order Comment: Order Date: 04/16/25Order Info: [id number] - CBCD Performed By: #### L 100.0100, L501.9520, L500.4050, L500.4100 ####[facility] [address] [place], [address] Eosinophils/100 WBC (Bld) 9.8 % High 0-5 [facility] Comment on above: Order Comment: Order Date: 04/16/25Order Info: [id number] - CBCD Performed By: #### L 100.0100, L501.9520, L500.4050, L500.4100 ####[facility] [address] [place], [address] Erythrocyte distribution width (RBC) [Ratio] 12.2 % Normal 11.6-14.6 [facility] Comment on above: Order Comment: Order Date: 04/16/25Order Info: [id number] - CBCD Performed By: #### L 100.0100, L501.9520, L500.4050, L500.4100 ####[facility] [address] [place], [address] Hematocrit (Bld) [Volume fraction] 41.2 % Normal 37-47 [facility] Comment on above: Order Comment: Order Date: 04/16/25Order Info: [id number] - CBCD Performed By: #### L 100.0100, L501.9520, L500.4050, L500.4100 ####[facility] [address] [place], [address] Hemoglobin (Bld) [Mass/Vol] 14.2 g/dL Normal 12.0-15.0 [facility] Comment on above: Order Comment: Order Date: 04/16/25Order Info: [id number] - CBCD Performed By: #### L 100.0100, L501.9520, L500.4050, L500.4100 ####[facility] [address] [place], [address] IG% 0.400 Normal 0.0-0.9 [facility] Comment on above: Order Comment: Order Date: 04/16/25Order Info: [id number] - CBCD Result Comment: IG% - Immature Granulocytes (promyelocytes, myelocytes and metamyelocytes) > 1% indicates that a LEFT SHIFT is Present. Performed By: #### L 100.0100, L501.9520, L500.4050, L500.4100 ####[facility] [address] [place], [address] Lymphocytes/100 WBC (Bld) 34.0 % Normal 19-41 [facility] Comment on above: Order Comment: Order Date: 04/16/25Order Info: [id number] - CBCD Performed By: #### L 100.0100, L501.9520, L500.4050, L500.4100 ####[facility] [address] [place], [address] MCH (RBC) [Entitic mass] 29.8 pg Normal 27.0-32.0 [facility] Comment on above: Order Comment: Order Date: 04/16/25Order Info: [id number] - CBCD Performed By: #### L 100.0100, L501.9520, L500.4050, L500.4100 ####[facility] [address] [place], [address] MCHC (RBC) [Mass/Vol] 34.5 g/dL Normal 32-[address] [facility] Comment on above: Order Comment: Order Date: 04/16/25Order Info: [id number] - CBCD Performed By: #### L 100.0100, L501.9520, L500.4050, L500.4100 ####[facility] [address] [place], [address] MCV (RBC) [Entitic vol] 86.4 fL Normal 81-99 [facility] Comment on above: Order Comment: Order Date: 04/16/25Order Info: [id number] - CBCD Performed By: #### L 100.0100, L501.9520, L500.4050, L500.4100 ####[facility] [address] [place], [address] Monocytes/100 WBC (Bld) 10.0 % Normal 0-10 [facility] Comment on above: Order Comment: Order Date: 04/16/25Order Info: [id number] - CBCD Performed By: #### L 100.0100, L501.9520, L500.4050, L500.4100 ####[facility] [address] [place], [address] Neutrophils/100 WBC (Bld) 43.7 % Low 47-70 [facility] Comment on above: Order Comment: Order Date: 04/16/25Order Info: [id number] - CBCD Performed By: #### L 100.0100, L501.9520, L500.4050, L500.4100 ####[facility] [address] [place], [address] Nucleated RBC (Bld) [#/Vol] 0 10*3/uL Normal 0-5 [facility] Comment on above: Order Comment: Order Date: 04/16/25Order Info: [id number] - CBCD Performed By: #### L 100.0100, L501.9520, L500.4050, L500.4100 ####[facility] [address] [place], [address] Platelet mean volume (Bld) [Entitic vol] 9.5 fL Normal 6.2-12.0 [facility] Comment on above: Order Comment: Order Date: 04/16/25Order Info: [id number] - CBCD Performed By: #### L 100.0100, L501.9520, L500.4050, L500.4100 ####[facility] [address] [place], [address] Platelets (Bld) [#/Vol] 308 10*3/uL Normal 150-450 [facility] Comment on above: Order Comment: Order Date: 04/16/25Order Info: [id number] - CBCD Performed By: #### L 100.0100, L501.9520, L500.4050, L500.4100 ####[facility] [address] [place], [address] RBC (Bld) [#/Vol] 4.77 10*6/uL Normal 4.2-5.4 [facility] Comment on above: Order Comment: Order Date: 04/16/25Order Info: [id number] - CBCD Performed By: #### L 100.0100, L501.9520, L500.4050, L500.4100 ####[facility] [address] [place], [address] RDW SD 38.8 fl Normal 35.1-43.9 [facility] Comment on above: Order Comment: Order Date: 04/16/25Order Info: [id number] - CBCD Performed By: #### L 100.0100, L501.9520, L500.4050, L500.4100 ####[facility] [address] [place], [address] WBC (Bld) [#/Vol] 4.7 10*3/uL Normal 4.4-11.0 [facility] Comment on above: Order Comment: Order Date: 04/16/25Order Info: [id number] - CBCD Performed By: #### L 100.0100, L501.9520, L500.4050, L500.4100 ####[facility] [address] [place], [place], [address] Calculated very low density lipoprotein (VLDL) cholesterol measurementOrdered By: Brittany Ramirez on 04-27-2025 Calculated very low density lipoprotein (VLDL) cholesterol measurement 18 mg/dL 5-40 [facility] Carbon dioxide, total [Moles /volume] in Central venous bloodOrdered By: Brittany Ramirez on 04-27-2025 CO2 [Moles/Vol] 24.5 mmol/L 21.0-32.0 [facility] Chloride assayOrdered By: Ector Ramirez on 04-27-2025 Chloride [Moles/Vol] 103 mmol/L 98-108 [facility] Comprehensive Metabolic Prof ilon 04-27-2025 Albumin [Mass/Vol] 4.1 g/dL Normal 3.5-5.0 [facility] Comment on above: Order Comment: Order Date: 04/16/25Order Info: [id number] - CMPOrder Info: [id number] - LIPIDOrder Info: [id number] - TSH Performed By: #### L 500.4050, L501.7900, L100.0100 #### [facility] [address] [place], [place], [address] Albumin/Globulin [Mass ratio] 1.4 {ratio} Normal 0.9-2.4 [facility] Comment on above: Order Comment: Order Date: 04/16/25Order Info: [id number] - CMPOrder Info: [id number] - LIPIDOrder Info: [id number] - TSH Performed By: #### L 500.4050, L501.7900, L100.0100 #### [facility] [address] [place], [address] ALK PHOS 77 U/L Normal 35-104 [facility] Comment on above: Order Comment: Order Date: 04/16/25Order Info: [id number] - CMPOrder Info: [id number] - LIPIDOrder Info: [id number] - TSH Performed By: #### L 500.4050, L501.7900, L100.0100 #### [facility] [address] [place], [address] ALT [Catalytic activity/Vol] 17 U/L Normal <=34 [facility] Comment on above: Order Comment: Order Date: 04/16/25Order Info: [id number] - CMPOrder Info: [id number] - LIPIDOrder Info: [id number] - TSH Performed By: #### L 500.4050, L501.7900, L100.0100 #### [facility] [address] [place], [address] AST [Catalytic activity/Vol] 17 U/L Normal <=31 [facility] Comment on above: Order Comment: Order Date: 04/16/25Order Info: [id number] - CMPOrder Info: [id number] - LIPIDOrder Info: [id number] - TSH Performed By: #### L 500.4050, L501.7900, L100.0100 #### [facility] [address] [place], [address] Bilirubin [Mass/Vol] 0.40 mg/dL Normal 0.00-1.30 [facility] Comment on above: Order Comment: Order Date: 04/16/25Order Info: [id number] - CMPOrder Info: [id number] - LIPIDOrder Info: [id number] - TSH Performed By: #### L 500.4050, L501.7900, L100.0100 #### [facility] [address] [place], [address] BUN/CRE 19.3 RATIO Normal 10-20 [facility] Comment on above: Order Comment: Order Date: 04/16/25Order Info: [id number] - CMPOrder Info: [id number] - LIPIDOrder Info: [id number] - TSH Performed By: #### L 500.4050, L501.7900, L100.0100 #### [facility] [address] [place], [address] Calcium [Mass/Vol] 9.3 mg/dL Normal 7.6-11.0 [facility] Comment on above: Order Comment: Order Date: 04/16/25Order Info: [id number] - CMPOrder Info: [id number] - LIPIDOrder Info: [id number] - TSH Performed By: #### L 500.4050, L501.7900, L100.0100 #### [facility] [address] [place], [address] Chloride [Moles/Vol] 103 mmol/L Normal 98-108 [facility] Comment on above: Order Comment: Order Date: 04/16/25Order Info: [id number] - CMPOrder Info: [id number] - LIPIDOrder Info: [id number] - TSH Performed By: #### L 500.4050, L501.7900, L100.0100 #### [facility] [address] [place], [address] CO2 [Moles/Vol] 24.5 mmol/L Normal 21.0-32.0 [facility] Comment on above: Order Comment: Order Date: 04/16/25Order Info: [id number] - CMPOrder Info: [id number] - LIPIDOrder Info: [id number] - TSH Performed By: #### L 500.4050, L501.7900, L100.0100 #### [facility] [address] [place], [address] Creatinine [Mass/Vol] 0.73 mg/dL Normal 0.70-1.[address] [facility] Comment on above: Order Comment: Order Date: 04/16/25Order Info: [id number] - CMPOrder Info: [id number] - LIPIDOrder Info: [id number] - TSH Performed By: #### L 500.4050, L501.7900, L100.0100 #### [facility] [address] [place], [address] GAP 12 Normal 5-15 [facility] Comment on above: Order Comment: Order Date: 04/16/25Order Info: [id number] - CMPOrder Info: [id number] - LIPIDOrder Info: 3 - TSH Performed By: #### L 500.4050, L501.7900, L100.0100 #### [facility] [address] [place], [address] GFR/1.73 sq M.predicted among non-blacks MDRD (S/P/Bld) [Vol rate/Area] 97 mL/min/{1.73_m2} Normal >60 [facility] Comment on above: Order Comment: Order Date: 04/16/25Order Info: [id number] - CMPOrder Info: [id number] - LIPIDOrder Info: [id number] - TSH Result Comment: mL/m in/1.73m2 CKD-EPI Creatinine Equation (2020) Performed By: #### L 500.4050, L501.7900, L100.0100 #### [facility] [address] [place], [address] Globulin (S) [Mass/Vol] 3.0 g/dL Normal 2.2-4.2 [facility] Comment on above: Order Comment: Order Date: 04/16/25Order Info: [id number] - CMPOrder Info: [id number] - LIPIDOrder Info: [id number] - TSH Performed By: #### L 500.4050, L501.7900, L100.0100 #### [facility] [address] [place], [address] Glucose [Mass/Vol] 93 mg/dL Normal 70-99 [facility] Comment on above: Order Comment: Order Date: 04/16/25Order Info: [id number] - CMPOrder Info: [id number] - LIPIDOrder Info: 3 - TSH Performed By: #### L 500.4050, L501.7900, L100.0100 #### [facility] [address] [place], [address] Potassium [Moles/Vol] 3.8 mmol/L Normal 3.3-5.[address] [facility] Comment on above: Order Comment: Order Date: 04/16/25Order Info: [id number] - CMPOrder Info: - LIPIDOrder Info: [id number] - TSH Performed By: #### L 500.4050, L501.7900, L100.0100 #### [facility] [address] [place], [address] Sodium [Moles/Vol] 139 mmol/L Normal 133-145 [facility] Comment on above: Order Comment: Order Date: 04/16/25Order Info: [id number] - CMPOrder Info: - LIPIDOrder Info: [id number] - TSH Performed By: #### L 500.4050, L501.7900, L100.0100 #### [facility] [address] [place], [address] T PROT 7.1 g/dL Normal 5.9-8.4 [facility] Comment on above: Order Comment: Order Date: 04/16/25Order Info: [id number] - CMPOrder Info: - LIPIDOrder Info: [id number] - TSH Performed By: #### L 500.4050, L501.7900, L100.0100 #### [facility] [address] [place], [place], [address] Urea nitrogen [Mass/Vol] 14 mg/dL Normal 4-19 [facility] Comment on above: Order Comment: Order Date: 04/16/25Order Info: [id number] - CMPOrder Info: [id number] - LIPIDOrder Info: [id number] - TSH Performed By: #### L 500.4050, L501.7900, L100.0100 #### [facility] [address] [place], [address] Eosinophil percentageOrdered By: Brittany Ramirez on 04-27-2025 Eosinophils/100 WBC (Bld) 9.8 % High 0-5 [facility] Erythrocyte distribution wid th ratioOrdered By: Brittany Ramirez on 04-27-2025 Erythrocyte distribution width (RBC) [Ratio] 12.2 % 11.6-14.6 [facility] Erythrocyte distribution wid th standard deviationOrdered By: Brittany Ramirez on 04-27-2025 Erythrocyte distribution width (RBC) [Ratio] 38.8 fl 35.1-43.9 [facility] Glomerular filtration rate ( GFR) estimation/1.73 sq m using serum, plasma, or whole bOrdered By: Brittany Ramirez on 04-27-2025 GFR/1.73 sq M.predicted among non-blacks MDRD (S/P/Bld) [Vol rate/Area] 97 mL/min/{1.73_m2} >60 [facility] Comment on above: mL/min/1.73m2 CKD-EP I Creatinine Equation (2020) Hematocrit Auto (Bld) [Volum e fraction]Ordered By: Brittany Ramirez on 04-27-2025 Hematocrit (Bld) [Volume fraction] 41.2 % 37-47 [facility] Hemoglobin measurementOrdere d By: Brittany Ramirez on 04-27-2025 Hemoglobin (Bld) [Mass/Vol] 14.2 g/dL 12.0-15.0 [facility] Immature granulocytes/100 WB C Auto (Bld)Ordered By: Brittany Ramirez on 04-27-2025 Immature granulocytes/100 WBC (Bld) 0.400 % 0.0-0.9 [facility] Comment on above: IG% - Immature Granu locytes (promyelocytes, myelocytes and metamyelocytes) > 1% indicates that a LEFT SHIFT is Present. LDL calc ser/plasOrdered By: Brittany Ramirez on 04-27-2025 Cholesterol in LDL [Mass/Vol] 176 mg/dL [facility] Comment on above: Tusphsluyq=201-451 m g/dL & Higher Bnuz=978 mg/dL or greaterFriedwald Equation for LDL-C Laboratory - Chemistry and C hemistry - challengeOrdered By: Brittany Gutiérrezke on 04-27-2025 AST [Catalytic activity/Vol] 17 U/L <32 [facility] Lipid Profileon 04-27-2025 CHOL:HDL 3.24 Normal [facility] Comment on above: Order Comment: Order Date: 04/16/25Order Info: [id number] - CMPOrder Info: [id number] - LIPIDOrder Info: [id number] - TSH Performed By: #### L 500.4050, L501.7900, L100.0100 #### [facility] [facility] [address] [place], [address] Cholesterol [Mass/Vol] 280 mg/dL High <=200 [facility] Comment on above: Order Comment: Order Date: 04/16/25Order Info: [id number] - CMPOrder Info: [id number] - LIPIDOrder Info: [id number] - TSH Result Comment: Chol esterol level, Desirable <200 mg/dL Borderline high cholesterol 200-239 mg/dL High cholesterol >=240 mg/dL Recommendations of the NCEP Adult Treatment Panel for the following risk-cutoff thresholds for the [place] population. Performed By: #### L 500.4050, L501.7900, L100.0100 #### [facility] [address] [place], [address] Cholesterol in HDL [Mass/Vol] 87 mg/dL Normal [facility] Comment on above: Order Comment: Order Date: 04/16/25Order Info: [id number] - CMPOrder Info: [id number] - LIPIDOrder Info: 3 - TSH Result Comment: Ramila onal Cholesterol Education Program (NCEP) guidelines: <40 mg/dL: Low HDL-cholesterol (major risk factor for CHD) >= 60 mg/dL: High HDL-cholesterol (negative risk factor for CHD) HDL-cholesterol is affected by a number of factors, e.g. smoking, exercise, hormones, sex and age. Performed By: #### L 500.4050, L501.7900, L100.0100 #### [facility] [address] [place], [address] Cholesterol in LDL [Mass/Vol] 176 mg/dL Normal [facility] Comment on above: Order Comment: Order Date: 04/16/25Order Info: 07 - CMPOrder Info: [id number] - LIPIDOrder Info: [id number] - TSH Result Comment: Bord fcnmpc=079-019 mg/dL Higher Npgo=497 mg/dL or greater Friedwald Equation for LDL-C Performed By: #### L 500.4050, L501.7900, L100.0100 #### [facility] [address] [place], [address] Cholesterol in VLDL [Mass/Vol] 18 mg/dL Normal 5-40 [facility] Comment on above: Order Comment: Order Date: 04/16/25Order Info: [id number] - CMPOrder Info: [id number] - LIPIDOrder Info: [id number] - TSH Performed By: #### L 500.4050, L501.7900, L100.0100 #### [facility] [address] [place], [address] Triglyceride [Mass/Vol] 90 mg/dL Normal [facility] Comment on above: Order Comment: Order Date: 04/16/25Order Info: [id number] - CMPOrder Info: [id number] - LIPIDOrder Info: [id number] - TSH Result Comment: The drugs N-Acetylcysteine and Metamizole may falsely depress this assay. Normal range: <150 mg/dL Borderline High: 150-199 mg/dL High: 200-499 mg/dL Very High: >500 mg/dL Performed By: #### L 500.4050, L501.7900, L100.0100 #### [facility] [address] [place], [address] MCV (mean corpuscular volume ) determinationOrdered By: Brittany Ramirez on 04-27-2025 MCV (RBC) [Entitic vol] 86.4 fL 81-99 [facility] Mean corpuscular hemoglobin (MCH) determinationOrdered By: Brittany Ramirez on 04-27-2025 MCH (RBC) [Entitic mass] 29.8 pg 27.0-32.0 [facility] Mean corpuscular hemoglobin concentration (MCHC) determinationOrdered By: Brittany Ramirez on 04-27-2025 MCHC (RBC) [Mass/Vol] 34.5 g/dL 32-[address] [facility] Mean platelet volume determi nationOrdered By: Brittany Ramirez on 04-27-2025 Platelet mean volume (Bld) [Entitic vol] 9.5 fL 6.2-12.0 [facility] Monocyte percentageOrdered B y: Brittany Ramirez on 04-27-2025 Monocytes/100 WBC (Bld) 10.0 % 0-10 [facility] Neutrophil percentageOrdered By: Brittany Ramirez on 04-27-2025 Neutrophils/100 WBC (Bld) 43.7 % Low 47-70 [facility] Nucleated red blood cell per centageOrdered By: Brittany Ramirez on 04-27-2025 Nucleated RBC/100 WBC (Bld) [Ratio] 0 % 0-5 [facility] Platelet countOrdered By: Ector Ramirez on 04-27-2025 Platelets (Bld) [#/Vol] 308 10*3/uL 150-450 [facility] Potassium measurement (mass/ volume)Ordered By: Brittany Ramirez on 04-27-2025 Potassium (Unsp spec) [Mass/Vol] 3.8 mmol/L 3.3-5.1 [facility] RBC Auto (Bld) [#/Vol]Ordere d By: Brittany Ramirez on 04-27-2025 RBC (Bld) [#/Vol] 4.77 10*6/uL 4.2-5.4 [facility] Screening total cholesterol/ high density lipoprotein (HDL) cholesterol ratioOrdered By: Brittany Ramirez on 04-27-2025 Cholesterol.total/Choles terol in HDL [Mass ratio] 3.24 {ratio} [facility] Serum creatinine measurement (mass/volume)Ordered By: Brittany Ramirez on 04-27-2025 Creatinine [Mass/Vol] 0.73 mg/dL 0.70-1.[address] [facility] Serum globulin measurementOr dered By: Brittany Ramirez on 04-27-2025 Globulin (S) [Mass/Vol] 3.0 g/dL 2.2-4.2 [facility] Serum glucose measurement (m ass/volume)Ordered By: Brittany Ramirez on 04-27-2025 Glucose [Mass/Vol] 93 mg/dL 70-99 [facility] Serum or plasma alanine enciso otransferase (ALT) measurementOrdered By: Brittany Ramirez on 04-27-2025 ALT [Catalytic activity/Vol] 17 U/L <35 [facility] Serum or plasma albumin malena urement (mass/volume)Ordered By: Brittany Ramirez on 04-27-2025 Albumin [Mass/Vol] 4.1 g/dL 3.5-5.0 [facility] Serum or plasma albumin/glob ulin mass ratioOrdered By: Brittany Ramirez on 04-27-2025 Albumin/Globulin [Mass ratio] 1.4 {ratio} 0.9-2.4 [facility] Serum or plasma alkaline lizzy sphatase measurementOrdered By: Brittany Ramirez on 04-27-2025 ALP [Catalytic activity/Vol] 77 U/L 35-104 [facility] Serum or plasma calcium malena urement (mass/volume)Ordered By: Brittany Ramirez on 04-27-2025 Calcium [Mass/Vol] 9.3 mg/dL 7.6-11.0 [facility] Serum or plasma cholesterol in HDL measurement (mass/volume)Ordered By: Brittany Ramirez on 04-27-2025 Cholesterol in HDL [Mass/Vol] 87 mg/dL >40 [facility] Comment on above: National Cholesterol Education Program (NCEP) guidelines:<40 mg/dL: Low HDL-cholesterol (major risk factor for CHD)>= 60 mg/dL: High HDL-cholesterol (negative risk factor for CHD)HDL-cholesterol is affected by a number of factors, e.g. smoking, exercise, hormones, sex and age. Serum or plasma cholesterol measurement (mass/volume)Ordered By: Brittany Ramirez on 04-27-2025 Cholesterol [Mass/Vol] 280 mg/dL High <201 [facility] Comment on above: Cholesterol level, D esirable <200 mg/dLBorderline high cholesterol 200-239 mg/dLHigh cholesterol >=240 mg/dLRecommendations of the NCEP Adult Treatment Panel for the following risk-cutoff thresholds for the [place] population. Serum or plasma urea nitroge n measurement (mass/volume)Ordered By: Brittany Ramirez on 04-27-2025 Urea nitrogen [Mass/Vol] 14 mg/dL 4-19 [facility] Sodium levelOrdered By: Evert Ramirez on 04-27-2025 Sodium [Moles/Vol] 139 mmol/L 133-145 [facility] TSH DL <= 0.005 mIU/L QnOrde red By: Brittany Ramirez on 04-27-2025 TSH Qn 2.240 uIU/mL 0.300-4.200 [facility] Thyroid Stim Hormone (TSH)on 04-27-2025 TSH 2.240 uIU/mL Normal 0.300-4.200 [facility] Comment on above: Order Comment: Order Date: 04/16/25Order Info: [id number] - CMPOrder Info: [id number] - LIPIDOrder Info: [id number] - TSH Performed By: #### L 500.4050, L501.7900, L100.0100 #### [facility] [address] [place], [address] Total proteinOrdered By: Estela Ramirez on 04-27-2025 Protein [Mass/Vol] 7.1 g/dL 5.9-8.4 [facility] Triglycerides measurementOrd ered By: Brittany Ramirez on 09-06-2025 Triglyceride [Mass/Vol] 90 mg/dL <199 [facility] Comment on above: The drugs N-Acetylcy steine and Metamizole may falsely depress this assay. Normal range: <150 mg/dLBorderline High: 150-199 mg/dLHigh: 200-499 mg/dLVery High: >500 mg/dL Vitamin D,25 Hydroxyon 04-27 Vitamin D 25-OH 55.8 ng/mL Normal 30-100 [facility] Comment on above: Order Comment: Order Date: 04/16/25Order Info: [id number] - CMPOrder Info: [id number] - LIPIDOrder Info: [id number] - TSH Result Comment: Liss min D Status Deficiency: <20 ng/mL (50nmol/L) Insufficiency: 20-30 ng/mL (50-75 nmol/L) Sufficiency: 30-100 ng/mL (75-250 nmol/L) Toxicity: >100 ng/mL (>250 nmol/L) Performed By: #### L 500.4050, L501.7900, L100.0100 #### [facility] [address] [place], [address] White blood cell (WBC) count Ordered By: Brittany Ramirez on 04-27-2025 WBC (Bld) [#/Vol] 4.7 10*3/uL 4.4-11.0 [facility] Oncology Visit Reporton 11-21 Oncology Visit Report [facility] [address] [place] [address] OFFICE VISIT Date of Service: 12/12/24 1050 MR#: [id number] Acct: [id number] Name: DUNCAN COY Rep #: [id number] : 1970 From: Paco Holland MD Age/Sex: 54/F Location: [facility] [place] Status: Signed HPI Subjective Date of Service 12/12/24 Chief Complaint F/u for Leukopenia History of Present Illness 54y.o.woman was found to have Leukopenia over the last 2 years and referred for evaluation. She denied fever, night sweats or weight loss. Has seizure disorder and has taken Carbamazepine since she was 13yrs ago. Had blood work and comes for follow up. [facility] Medical History History of ganglion cyst Asthma [...] 100 Oxygen Delivery Method room air Intake Twisting Frame Operator Required: No Accompanied by: Is patient in pain?: No Allergies No Known Allergies Allergy (Verified 12/12/24 10:52) Medications ???Medication ???Instructions ???Recorded ???Confirmed ???Type albuterol 90 mcg/actuation aerosol mcg inhalation 11/12/24 12/12/24 History inhaler carbamazepine 300 mg 300 mg PO BID 11/12/24 12/12/24 Hi story capsule,extended release [id number] cholecalciferol (vitamin D3) 50 50 mcg PO QDAY 11/12/24 12/12/24 H istory mcg (2,000 unit) capsule fluticasone furoate 100 1 inh inhalation Q24H 11/12/24 History mcg/actuation blister powder for inhalation (Arnuity Ellipta) omega 0-lxo-qem-fish oil 300 1 cap PO QDAY 11/12/24 12/12/24 Hi story mg-1,000 mg capsule (Fish Oil) zinc gluconate 50 mg tablet 50 mg PO QDAY 11/12/24 12/12/24 Hi story ascorbate calcium (vitamin C) 500 1,500 mg PO QDAY 11/28/24 5 History mg tablet black cumin 500 mg PO BID 11/28/24 12/12/24 Hi story bone care PO DAILY 11/28/24 12/12/24 History multivitamin with minerals (One 1 tab PO QDAY 11/28/24 12/12/24 Hi story Daily Complete tablet) multivitamin-iron (hematinic) tab PO DAILY 11/28/24 12/12/24 His tory red yeast rice 600 mg capsule 600 mg PO BID 11/28/24 12/12/24 Hi story Central Venous Access Central Venous Access: No [...] Up: 6 Months 12/12/24 1123 Date Paco Caseyigner Signature: Date (if applicable) CC: Dr. Brittany Ramirez MD; Dr. Luke Peters MD Normal [facility] Normal . [facility] Comment on above: Order Comment: [id number] 0LEUK/LYMPH PHEN LAV WB Result Comment: Test Ordered: [id number] Flow panel: Leukemia/Lymphoma Flow Interpretation Comment -Y [...] analysis with CD45/SSC gating Technical-Analysis performed at [facility], [address] [place] [address]., [place] [address]? Director: Renita Bartholomew, [facility] Phenotype Chart Comment -Y Reference [...] developed and its performance characteristics determined by [facility]. It has not been cleared or approved by the U.S. Food and Drug Administration. The FDA has determined that such clearance or approval is not necessary. This test is used for clinical purposes. It should not be regarded as investigational or for research. Performed at: - [facility] [address] [facility], [place], [place] [id number] Support Services Coordinator: Renita Bartholomew [facility], Phone: [phone] Performed at: TG - [facility] [address] [facility], [place] [id number] Support Services Coordinator: Renita Bartholomew [facility], Phone: [phone] Performed at: [address] [id number] Support Services Coordinator: Greg Olivier PhD, Phone: [phone] Performed By: #### L 504.2610, L3100.5475, L101.9900, L501.6710, L503.6550, L100.9950, L501.2300, L503.6030, L100.0100, L501.5200, L503.0106, L500.4050, L3410.9998, L3100.1850 ####[facility] [id number] [facility] [place], [place], [id number] ANTINUCLEAR ANTIBODIES DIREC Ton 11-29-2024 CATALINA,DIRECT Negative Normal Negative [facility] Comment on above: Result Comment: Perf ormed at: [address] [id number] Support Services Coordinator: Greg Olivier PhD, Phone: [phone] Performed By: #### L 504.2610, L3100.5475, L101.9900, L501.6710, L503.6550, L100.9950, L501.2300, L503.6030, L100.0100, L501.5200, L503.0106, L500.4050, L3410.9998, L3100.1850 ####[facility] [id number] [place], [place], [id number] Haptoglobinon 11-29-2024 HAPTOGLOBIN 136 mg/dL Normal 33-346 [facility] Comment on above: Result Comment: Perf ormed at: [address] [id number] Support Services Coordinator: Greg Olivier PhD, Phone: [phone] Performed By: #### L 504.2610, L3100.5475, L101.9900, L501.6710, L503.6550, L100.9950, L501.2300, L503.6030, L100.0100, L501.5200, L503.0106, L500.4050, L3410.9998, L3100.1850 ####[facility] [id number] [place], [place], [id number] CBC W/Diff, Automatedon 04-0 Absolute Lymph 1.34 X10 3/uL Normal 0.83-4.51 [facility] Comment on above: Performed By: #### L 504.2610, L3100.5475, L101.9900, L501.6710, L503.6550, L100.9950, L501.2300, L503.6030, L100.0100, L501.5200, L503.0106, L500.4050, L3410.9998, L3100.1850 #### [facility] [address] [place], [place], [phone] Absolute Neut 2.5 X10 3/uL Normal 2.0-7.7 [facility] Comment on above: Performed By: #### L 504.2610, L3100.5475, L101.9900, L501.6710, L503.6550, L100.9950, L501.2300, L503.6030, L100.0100, L501.5200, L503.0106, L500.4050, L3410.9998, L3100.1850 #### [facility] [address] [place], [place], [phone] (272) Basophils/100 WBC (Bld) 1.7 % High 0-1 [facility] Comment on above: Performed By: #### L 504.2610, L3100.5475, L101.9900, L501.6710, L503.6550, L100.9950, L501.2300, L503.6030, L100.0100, L501.5200, L503.0106, L500.4050, L3410.9998, L3100.1850 #### [facility] [address] [place], [address] Eosinophils/100 WBC (Bld) 6.7 % High 0-5 [facility] Comment on above: Performed By: #### L 504.2610, L3100.5475, L101.9900, L501.6710, L503.6550, L100.9950, L501.2300, L503.6030, L100.0100, L501.5200, L503.0106, L500.4050, L3410.9998, L3100.1850 #### [facility] [address] [place], [place], [phone] (739) Erythrocyte distribution width (RBC) [Ratio] 12.2 % Normal 11.6-14.6 [facility] Comment on above: Performed By: #### L 504.2610, L3100.5475, L101.9900, L501.6710, L503.6550, L100.9950, L501.2300, L503.6030, L100.0100, L501.5200, L503.0106, L500.4050, L3410.9998, L3100.1850 #### [facility] [address] [place], [place], [phone] (198) Hematocrit (Bld) [Volume fraction] 42.2 % Normal 37-47 [facility] Comment on above: Performed By: #### L 504.2610, L3100.5475, L101.9900, L501.6710, L503.6550, L100.9950, L501.2300, L503.6030, L100.0100, L501.5200, L503.0106, L500.4050, L3410.9998, L3100.1850 #### [facility] [address] [facility] [address] Hemoglobin (Bld) [Mass/Vol] 14.5 g/dL Normal 12.0-15.0 [facility] Comment on above: Performed By: #### L 504.2610, L3100.5475, L101.9900, L501.6710, L503.6550, L100.9950, L501.2300, L503.6030, L100.0100, L501.5200, L503.0106, L500.4050, L3410.9998, L3100.1850 #### [facility] [address] [facility] [place], [address] IG% 0.200 Normal 0.0-0.9 [facility] Comment on above: Result Comment: IG% - Immature Granulocytes (promyelocytes, myelocytes and metamyelocytes) > 1% indicates that a LEFT SHIFT is Present. Performed By: #### L 504.2610, L3100.5475, L101.9900, L501.6710, L503.6550, L100.9950, L501.2300, L503.6030, L100.0100, L501.5200, L503.0106, L500.4050, L3410.9998, L3100.1850 #### [facility] [address] [place] [phone] Lymphocytes/100 WBC (Bld) 29.1 % Normal 19-41 [facility] Comment on above: Performed By: #### L 504.2610, L3100.5475, L101.9900, L501.6710, L503.6550, L100.9950, L501.2300, L503.6030, L100.0100, L501.5200, L503.0106, L500.4050, L3410.9998, L3100.1850 #### [facility] [address] [place], [address] MCH (RBC) [Entitic mass] 29.9 pg Normal 27.0-32.0 [facility] Comment on above: Performed By: #### L 504.2610, L3100.5475, L101.9900, L501.6710, L503.6550, L100.9950, L501.2300, L503.6030, L100.0100, L501.5200, L503.0106, L500.4050, L3410.9998, L3100.1850 #### [facility] [address] [place], [address] MCHC (RBC) [Mass/Vol] 34.4 g/dL Normal 32-[address] [facility] Comment on above: Performed By: #### L 504.2610, L3100.5475, L101.9900, L501.6710, L503.6550, L100.9950, L501.2300, L503.6030, L100.0100, L501.5200, L503.0106, L500.4050, L3410.9998, L3100.1850 #### [facility] [address] [facility] [place], [address] MCV (RBC) [Entitic vol] 87.0 fL Normal 81-99 [facility] Comment on above: Performed By: #### L 504.2610, L3100.5475, L101.9900, L501.6710, L503.6550, L100.9950, L501.2300, L503.6030, L100.0100, L501.5200, L503.0106, L500.4050, L3410.9998, L3100.1850 #### [facility] [address] [place], [address] Monocytes/100 WBC (Bld) 8.9 % Normal 0-10 [facility] Comment on above: Performed By: #### L 504.2610, L3100.5475, L101.9900, L501.6710, L503.6550, L100.9950, L501.2300, L503.6030, L100.0100, L501.5200, L503.0106, L500.4050, L3410.9998, L3100.1850 #### [facility] [address] [place], [address] Neutrophils/100 WBC (Bld) 53.4 % Normal 47-70 [facility] Comment on above: Performed By: #### L 504.2610, L3100.5475, L101.9900, L501.6710, L503.6550, L100.9950, L501.2300, L503.6030, L100.0100, L501.5200, L503.0106, L500.4050, L3410.9998, L3100.1850 #### [facility] [address] [place], [address] Nucleated RBC (Bld) [#/Vol] 0 10*3/uL Normal 0-5 [facility] Comment on above: Performed By: #### L 504.2610, L3100.5475, L101.9900, L501.6710, L503.6550, L100.9950, L501.2300, L503.6030, L100.0100, L501.5200, L503.0106, L500.4050, L3410.9998, L3100.1850 #### [facility] [address] [place], [place], [phone] (490) Platelet mean volume (Bld) [Entitic vol] 9.2 fL Normal 6.2-12.0 [facility] Comment on above: Performed By: #### L 504.2610, L3100.5475, L101.9900, L501.6710, L503.6550, L100.9950, L501.2300, L503.6030, L100.0100, L501.5200, L503.0106, L500.4050, L3410.9998, L3100.1850 #### [facility] [address] [place], [address] Platelets (Bld) [#/Vol] 318 10*3/uL Normal 150-450 [facility] Comment on above: Performed By: #### L 504.2610, L3100.5475, L101.9900, L501.6710, L503.6550, L100.9950, L501.2300, L503.6030, L100.0100, L501.5200, L503.0106, L500.4050, L3410.9998, L3100.1850 #### [facility] [address] [place], [place], [phone] (550) RBC (Bld) [#/Vol] 4.85 10*6/uL Normal 4.2-5.4 [facility] Comment on above: Performed By: #### L 504.2610, L3100.5475, L101.9900, L501.6710, L503.6550, L100.9950, L501.2300, L503.6030, L100.0100, L501.5200, L503.0106, L500.4050, L3410.9998, L3100.1850 #### [facility] [address] [place], [place], [phone] (514) RDW SD 39.1 fl Normal 35.1-43.9 [facility] Comment on above: Performed By: #### L 504.2610, L3100.5475, L101.9900, L501.6710, L503.6550, L100.9950, L501.2300, L503.6030, L100.0100, L501.5200, L503.0106, L500.4050, L3410.9998, L3100.1850 #### [facility] [address] [place] [phone] WBC (Bld) [#/Vol] 4.6 10*3/uL Normal 4.4-11.0 [facility] Comment on above: Performed By: #### L 504.2610, L3100.5475, L101.9900, L501.6710, L503.6550, L100.9950, L501.2300, L503.6030, L100.0100, L501.5200, L503.0106, L500.4050, L3410.9998, L3100.1850 #### [facility] [address] [place], [address] CRPon 11-28-2024 C-REACTIVE PROT < 3.00 Normal 0.0-3.0 [facility] Comment on above: Performed By: #### L 504.2610, L3100.5475, L101.9900, L501.6710, L503.6550, L100.9950, L501.2300, L503.6030, L100.0100, L501.5200, L503.0106, L500.4050, L3410.9998, L3100.1850 ####[facility] [address] [place], [place], [phone] Comprehensive Metabolic Prof ilon 11-28-2024 Albumin [Mass/Vol] 4.3 g/dL Normal 3.5-5.0 [facility] Comment on above: Performed By: #### L 504.2610, L3100.5475, L101.9900, L501.6710, L503.6550, L100.9950, L501.2300, L503.6030, L100.0100, L501.5200, L503.0106, L500.4050, L3410.9998, L3100.1850 #### [facility] [address] [place], [address] Albumin/Globulin [Mass ratio] 1.4 {ratio} Normal 0.9-2.4 [facility] Comment on above: Performed By: #### L 504.2610, L3100.5475, L101.9900, L501.6710, L503.6550, L100.9950, L501.2300, L503.6030, L100.0100, L501.5200, L503.0106, L500.4050, L3410.9998, L3100.1850 #### [facility] [address] [place], [place], [id number] ALK PHOS 85 U/L Normal 35-104 [facility] Comment on above: Performed By: #### L 504.2610, L3100.5475, L101.9900, L501.6710, L503.6550, L100.9950, L501.2300, L503.6030, L100.0100, L501.5200, L503.0106, L500.4050, L3410.9998, L3100.1850 #### [facility] [address] [place], [address] ALT [Catalytic activity/Vol] 16 U/L Normal <=34 [facility] Comment on above: Performed By: #### L 504.2610, L3100.5475, L101.9900, L501.6710, L503.6550, L100.9950, L501.2300, L503.6030, L100.0100, L501.5200, L503.0106, L500.4050, L3410.9998, L3100.1850 #### [facility] [address] [place], [address] AST [Catalytic activity/Vol] 18 U/L Normal <=31 [facility] Comment on above: Performed By: #### L 504.2610, L3100.5475, L101.9900, L501.6710, L503.6550, L100.9950, L501.2300, L503.6030, L100.0100, L501.5200, L503.0106, L500.4050, L3410.9998, L3100.1850 #### [facility] [address] [place], [place], [phone] Bilirubin [Mass/Vol] 0.27 mg/dL Normal 0.00-1.30 [facility] Comment on above: Performed By: #### L 504.2610, L3100.5475, L101.9900, L501.6710, L503.6550, L100.9950, L501.2300, L503.6030, L100.0100, L501.5200, L503.0106, L500.4050, L3410.9998, L3100.1850 #### [facility] [address] [place], [address] BUN/CRE 18.6 RATIO Normal 10-20 [facility] Comment on above: Performed By: #### L 504.2610, L3100.5475, L101.9900, L501.6710, L503.6550, L100.9950, L501.2300, L503.6030, L100.0100, L501.5200, L503.0106, L500.4050, L3410.9998, L3100.1850 #### [facility] [address] [place], [address] Calcium [Mass/Vol] 9.6 mg/dL Normal 7.6-11.0 [facility] Comment on above: Performed By: #### L 504.2610, L3100.5475, L101.9900, L501.6710, L503.6550, L100.9950, L501.2300, L503.6030, L100.0100, L501.5200, L503.0106, L500.4050, L3410.9998, L3100.1850 #### [facility] [address] [place], [place], [phone] Chloride [Moles/Vol] 100 mmol/L Normal 98-108 [facility] Comment on above: Performed By: #### L 504.2610, L3100.5475, L101.9900, L501.6710, L503.6550, L100.9950, L501.2300, L503.6030, L100.0100, L501.5200, L503.0106, L500.4050, L3410.9998, L3100.1850 #### [facility] [address] [place], [place], [phone]) CO2 [Moles/Vol] 28.0 mmol/L Normal 21.0-32.0 [facility] Comment on above: Performed By: #### L 504.2610, L3100.5475, L101.9900, L501.6710, L503.6550, L100.9950, L501.2300, L503.6030, L100.0100, L501.5200, L503.0106, L500.4050, L3410.9998, L3100.1850 #### [facility] [address] [place], [place], [phone] Creatinine [Mass/Vol] 0.75 mg/dL Normal 0.70-1.[address] [facility] Comment on above: Performed By: #### L 504.2610, L3100.5475, L101.9900, L501.6710, L503.6550, L100.9950, L501.2300, L503.6030, L100.0100, L501.5200, L503.0106, L500.4050, L3410.9998, L3100.1850 #### [facility] [address] [place], [place], [phone] (809) GAP 10 Normal 5-15 [facility] Comment on above: Performed By: #### L 504.2610, L3100.5475, L101.9900, L501.6710, L503.6550, L100.9950, L501.2300, L503.6030, L100.0100, L501.5200, L503.0106, L500.4050, L3410.9998, L3100.1850 #### [facility] [address] [place], [place], [phone] (261) GFR/1.73 sq M.predicted among non-blacks MDRD (S/P/Bld) [Vol rate/Area] 94 mL/min/{1.73_m2} Normal >60 [facility] Comment on above: Result Comment: mL/m in/1.73m2 CKD-EPI Creatinine Equation (2020) Performed By: #### L 504.2610, L3100.5475, L101.9900, L501.6710, L503.6550, L100.9950, L501.2300, L503.6030, L100.0100, L501.5200, L503.0106, L500.4050, L3410.9998, L3100.1850 #### [facility] [address] [place], [place], [phone] (725) Globulin (S) [Mass/Vol] 3.2 g/dL Normal 2.2-4.2 [facility] Comment on above: Performed By: #### L 504.2610, L3100.5475, L101.9900, L501.6710, L503.6550, L100.9950, L501.2300, L503.6030, L100.0100, L501.5200, L503.0106, L500.4050, L3410.9998, L3100.1850 #### [facility] [address] [place], [place], [phone] ([phone]) Glucose [Mass/Vol] 92 mg/dL Normal 70-99 [facility] Comment on above: Performed By: #### L 504.2610, L3100.5475, L101.9900, L501.6710, L503.6550, L100.9950, L501.2300, L503.6030, L100.0100, L501.5200, L503.0106, L500.4050, L3410.9998, L3100.1850 #### [facility] [address] [place], [address] Potassium [Moles/Vol] 4.0 mmol/L Normal 3.3-5.[address] [facility] Comment on above: Performed By: #### L 504.2610, L3100.5475, L101.9900, L501.6710, L503.6550, L100.9950, L501.2300, L503.6030, L100.0100, L501.5200, L503.0106, L500.4050, L3410.9998, L3100.1850 #### [facility] [address] [place], [address] Sodium [Moles/Vol] 137 mmol/L Normal 133-145 [facility] Comment on above: Performed By: #### L 504.2610, L3100.5475, L101.9900, L501.6710, L503.6550, L100.9950, L501.2300, L503.6030, L100.0100, L501.5200, L503.0106, L500.4050, L3410.9998, L3100.1850 #### [facility] [address] [place], [address] T PROT 7.5 g/dL Normal 5.9-8.4 [facility] Comment on above: Performed By: #### L 504.2610, L3100.5475, L101.9900, L501.6710, L503.6550, L100.9950, L501.2300, L503.6030, L100.0100, L501.5200, L503.0106, L500.4050, L3410.9998, L3100.1850 #### [facility] [address] [place], [place], [phone] Urea nitrogen [Mass/Vol] 14 mg/dL Normal 4-19 [facility] Comment on above: Performed By: #### L 504.2610, L3100.5475, L101.9900, L501.6710, L503.6550, L100.9950, L501.2300, L503.6030, L100.0100, L501.5200, L503.0106, L500.4050, L3410.9998, L3100.1850 #### [facility] [address] [place], [place], [phone] Erythrocyte Sed Rateon 11-28 SED RATE 3 mm/hr Normal 0-30 [facility] Comment on above: Performed By: #### L 504.2610, L3100.5475, L101.9900, L501.6710, L503.6550, L100.9950, L501.2300, L503.6030, L100.0100, L501.5200, L503.0106, L500.4050, L3410.9998, L3100.1850 #### [facility] [address] [place], [place], [phone] Ferritinon 11-28-2024 Ferritin [Mass/Vol] 92 ng/mL Normal 22-378 [facility] Comment on above: Performed By: #### L 504.2610, L3100.5475, L101.9900, L501.6710, L503.6550, L100.9950, L501.2300, L503.6030, L100.0100, L501.5200, L503.0106, L500.4050, L3410.9998, L3100.1850 ####[facility] [address] [place], [place], [phone] Iron+Iron Binding Capacityon 11-28-2024 Iron [Mass/Vol] 114 ug/dL Normal 50-170 [facility] Comment on above: Performed By: #### L 504.2610, L3100.5475, L101.9900, L501.6710, L503.6550, L100.9950, L501.2300, L503.6030, L100.0100, L501.5200, L503.0106, L500.4050, L3410.9998, L3100.1850 ####[facility] [address] [place], [address] UIBC 221 ug/dL Low 228-428 [facility] Comment on above: Performed By: #### L 504.2610, L3100.5475, L101.9900, L501.6710, L503.6550, L100.9950, L501.2300, L503.6030, L100.0100, L501.5200, L503.0106, L500.4050, L3410.9998, L3100.1850 ####[facility] [address] [place], [place], [phone](544) LDHon 11-28-2024 LDH 193 U/L Normal 84-246 [facility] Comment on above: Order Comment: 1 Performed By: #### L 504.2610, L3100.5475, L101.9900, L501.6710, L503.6550, L100.9950, L501.2300, L503.6030, L100.0100, L501.5200, L503.0106, L500.4050, L3410.9998, L3100.1850 ####[facility] [address] [place], [place], [address] Magnesiumon 11-28-2024 Magnesium [Mass/Vol] 2.2 mg/dL Normal 1.5-2.2 [facility] Comment on above: Performed By: #### L 504.2610, L3100.5475, L101.9900, L501.6710, L503.6550, L100.9950, L501.2300, L503.6030, L100.0100, L501.5200, L503.0106, L500.4050, L3410.9998, L3100.1850 ####[facility] [address] [place], [address] Oncology Visit Reporton Oncology Visit Report [facility] [address] [place] [address] OFFICE VISIT Date of Service: 11/28/24 1021 MR#: [id number] Acct: [id number] Name: DUNCAN COY Rep #: [id number] : 1970 From: Paco Holland MD Age/Sex: 54/F Location: [facility] [place] Status: Signed HPI Subjective Date of Service 11/28/24 Chief Complaint Referred for Leukopenia History of Present Illness 54y.o.woman was found to have Leukopenia over the last 2 years and referred for evaluation. She denies fever, night sweats or weight loss. Has seizure disorder and takes Carbamazepine since she was 13yrs ago. [facility] Medical History (Updated 11/28/24 @ 11:00 by [...] mg 300 mg PO BID 11/12/24 11/28/24 Kirt story capsule,extended release [id number] cholecalciferol (vitamin D3) 50 50 mcg PO QDAY 11/12/24 11/28/24 H istory mcg (2,000 unit) capsule fluticasone furoate 100 1 inh inhalation Q24H 11/12/2405/16 History mcg/actuation blister powder for inhalation (Arnuity Ellipta) omega 6-evn-pud-fish oil 300 1 cap PO QDAY 11/12/24 11/28/24 Hi story mg-1,000 mg capsule (Fish Oil) zinc gluconate 50 mg tablet 50 mg PO QDAY 11/12/24 11/28/24 Hi story ascorbate calcium (vitamin C) 500 1,500 mg PO QDAY 11/28/24 5 History mg tablet black cumin 500 mg PO BID 11/28/24 History bone care PO DAILY 11/28/24 11/28/24 History multivitamin with minerals (One 1 tab PO QDAY 11/28/24 11/28/24 Hi story Daily Complete tablet) multivitamin-iron (hematinic) tab PO DAILY 11/28/24 11/28/24 His tory red yeast rice 600 mg capsule 600 mg PO BID 11/28/24 11/28/24 Hi story Central Venous Access Central Venous Access: No [...] nose norm (more content not included)... Normal [facility] Phosphoruson 11-28-2024 Phosphate [Mass/Vol] 3.4 mg/dL Normal 2.7-4.5 [facility] Comment on above: Performed By: #### L 504.2610, L3100.5475, L101.9900, L501.6710, L503.6550, L100.9950, L501.2300, L503.6030, L100.0100, L501.5200, L503.0106, L500.4050, L3410.9998, L3100.1850 ####[facility] [address] [place], [place], [phone] Retic Panelon 11-28-2024 IM RET FRACTION 4.30 Normal 3.00-15.90 [facility] Comment on above: Performed By: #### L 504.2610, L3100.5475, L101.9900, L501.6710, L503.6550, L100.9950, L501.2300, L503.6030, L100.0100, L501.5200, L503.0106, L500.4050, L3410.9998, L3100.1850 #### [facility] [address] [place], [place], [phone] RET-HE 33.7 pg Normal 30-35 [facility] Comment on above: Performed By: #### L 504.2610, L3100.5475, L101.9900, L501.6710, L503.6550, L100.9950, L501.2300, L503.6030, L100.0100, L501.5200, L503.0106, L500.4050, L3410.9998, L3100.1850 #### [facility] [address] [place], [place], [phone] Retic Count 1.06 Normal 0.5-1.5 [facility] Comment on above: Performed By: #### L 504.2610, L3100.5475, L101.9900, L501.6710, L503.6550, L100.9950, L501.2300, L503.6030, L100.0100, L501.5200, L503.0106, L500.4050, L3410.9998, L3100.1850 #### [facility] [address] [place], [place], [phone] Vitamin B12on 11-28-2024 Cobalamin (Vitamin B12) [Mass/Vol] 1106 pg/mL High 180-914 [facility] Comment on above: Performed By: #### L 504.2610, L3100.5475, L101.9900, L501.6710, L503.6550, L100.9950, L501.2300, L503.6030, L100.0100, L501.5200, L503.0106, L500.4050, L3410.9998, L3100.1850 #### [facility] [address] [place], [address] Absolute neutrophil countOrd ered By: Luke Peters on 10-27-2024 Neutrophils (Bld) [#/Vol] 1.2 10*3/uL Low 2.0-7.7 [facility] Anion gap in Serum or Plasma Ordered By: Luke Peters on 10-27-2024 Anion gap [Moles/Vol] 12 mmol/L 5-[address] [facility] BUN/creatinine ratioOrdered By: Luke Peters on 10-27-2024 Urea nitrogen/Creatinine [Mass ratio] 15.9 mg/mg 10-20 [facility] Basophil percentageOrdered B y: Luke Peters on 10-27-2024 Basophils/100 WBC (Bld) 2.1 % High 0-1 [facility] Bilirubin, totalOrdered By: Luke Peters on 10-27-2024 Bilirubin [Mass/Vol] 0.37 mg/dL 0.00-1.30 [facility] CBC W/Diff, Automatedon Absolute Lymph 1.47 X10 3/uL Normal 0.83-4.51 [facility] Comment on above: Performed By: #### L 500.4050, L501.7900, L100.0100 #### [facility] [address] [place], [address] Absolute Neut 1.2 X10 3/uL Low 2.0-7.7 [facility] Comment on above: Performed By: #### L 500.4050, L501.7900, L100.0100 #### [facility] [address] [place], [address] Basophils/100 WBC (Bld) 2.1 % High 0-1 [facility] Comment on above: Performed By: #### L 500.4050, L501.7900, L100.0100 #### [facility] [address] [place], [address] Eosinophils/100 WBC (Bld) 7.8 % High 0-5 [facility] Comment on above: Performed By: #### L 500.4050, L501.7900, L100.0100 #### [facility] [address] [place], [address] Erythrocyte distribution width (RBC) [Ratio] 12.1 % Normal 11.6-14.6 [facility] Comment on above: Performed By: #### L 500.4050, L501.7900, L100.0100 #### [facility] [address] [place], [address] Hematocrit (Bld) [Volume fraction] 41.8 % Normal 37-47 [facility] Comment on above: Performed By: #### L 500.4050, L501.7900, L100.0100 #### [facility] [address] [place], [address] Hemoglobin (Bld) [Mass/Vol] 14.3 g/dL Normal 12.0-15.0 [facility] Comment on above: Performed By: #### L 500.4050, L501.7900, L100.0100 #### [facility] [address] [place], [address] IG% 0.300 Normal 0.0-0.9 [facility] Comment on above: Result Comment: IG% - Immature Granulocytes (promyelocytes, myelocytes and metamyelocytes) > 1% indicates that a LEFT SHIFT is Present. Performed By: #### L 500.4050, L501.7900, L100.0100 #### [facility] [address] [place], [address] Lymphocytes/100 WBC (Bld) 44.1 % High 19-41 [facility] Comment on above: Performed By: #### L 500.4050, L501.7900, L100.0100 #### [facility] [address] [place], [address] MCH (RBC) [Entitic mass] 29.2 pg Normal 27.0-32.0 [facility] Comment on above: Performed By: #### L 500.4050, L501.7900, L100.0100 #### [facility] [address] [place], [address] MCHC (RBC) [Mass/Vol] 34.2 g/dL Normal 32-[address] [facility] Comment on above: Performed By: #### L 500.4050, L501.7900, L100.0100 #### [facility] [address] [place], [address] MCV (RBC) [Entitic vol] 85.5 fL Normal 81-99 [facility] Comment on above: Performed By: #### L 500.4050, L501.7900, L100.0100 #### [facility] [address] [place], [address] Monocytes/100 WBC (Bld) 9.9 % Normal 0-10 [facility] Comment on above: Performed By: #### L 500.4050, L501.7900, L100.0100 #### [facility] [address] [place], [address] Neutrophils/100 WBC (Bld) 35.8 % Low 47-70 [facility] Comment on above: Performed By: #### L 500.4050, L501.7900, L100.0100 #### [facility] [address] [place], [address] Nucleated RBC (Bld) [#/Vol] 0 10*3/uL Normal 0-5 [facility] Comment on above: Performed By: #### L 500.4050, L501.7900, L100.0100 #### [facility] [address] [place], [address] Platelet mean volume (Bld) [Entitic vol] 9.5 fL Normal 6.2-12.0 [facility] Comment on above: Performed By: #### L 500.4050, L501.7900, L100.0100 #### [facility] [address] [place], [address] Platelets (Bld) [#/Vol] 303 10*3/uL Normal 150-450 [facility] Comment on above: Performed By: #### L 500.4050, L501.7900, L100.0100 #### [facility] [address] [place], [address] RBC (Bld) [#/Vol] 4.89 10*6/uL Normal 4.2-5.4 [facility] Comment on above: Performed By: #### L 500.4050, L501.7900, L100.0100 #### [facility] [address] [place], [address] RDW SD 38.0 fl Normal 35.1-43.9 [facility] Comment on above: Performed By: #### L 500.4050, L501.7900, L100.0100 #### [facility] [address] [place], [address] WBC (Bld) [#/Vol] 3.3 10*3/uL Low 4.4-11.0 [facility] Comment on above: Performed By: #### L 500.4050, L501.7900, L100.0100 #### [facility] [address] [place], [address] Carbamazepine (Tegretol)on 0 10-27-2024 CARBAMAZEPINE 7.7 ug/mL Normal 4.0-12.0 [facility] Comment on above: Performed By: #### L 500.4050, L501.7900, L100.0100 #### [facility] [address] [place], [address] Carbon dioxide, total [Moles /volume] in Central venous bloodOrdered By: Luke Peters on 10-27-2024 CO2 [Moles/Vol] 24.6 mmol/L 21.0-32.0 [facility] Chloride assayOrdered By: Vincent Peters on 10-27-2024 Chloride [Moles/Vol] 103 mmol/L 98-108 [facility] Comprehensive Metabolic Prof ilon 10-27-2024 Albumin [Mass/Vol] 4.1 g/dL Normal 3.5-5.0 [facility] Comment on above: Performed By: #### L 500.4050, L501.7900, L100.0100 #### [facility] [address] [place], [address] Albumin/Globulin [Mass ratio] 1.5 {ratio} Normal 0.9-2.4 [facility] Comment on above: Performed By: #### L 500.4050, L501.7900, L100.0100 #### [facility] [address] [place], [address] ALK PHOS 81 U/L Normal 35-104 [facility] Comment on above: Performed By: #### L 500.4050, L501.7900, L100.0100 #### [facility] [address] [place], [address] ALT [Catalytic activity/Vol] 15 U/L Normal <=34 [facility] Comment on above: Performed By: #### L 500.4050, L501.7900, L100.0100 #### [facility] [address] [place], [address] AST [Catalytic activity/Vol] 17 U/L Normal <=31 [facility] Comment on above: Performed By: #### L 500.4050, L501.7900, L100.0100 #### [facility] [address] [place], [address] Bilirubin [Mass/Vol] 0.37 mg/dL Normal 0.00-1.30 [facility] Comment on above: Performed By: #### L 500.4050, L501.7900, L100.0100 #### [facility] [address] [place], [address] BUN/CRE 15.9 RATIO Normal 10-20 [facility] Comment on above: Performed By: #### L 500.4050, L501.7900, L100.0100 #### [facility] [address] [place], [address] Calcium [Mass/Vol] 9.2 mg/dL Normal 7.6-11.0 [facility] Comment on above: Performed By: #### L 500.4050, L501.7900, L100.0100 #### [facility] [address] [place], [address] Chloride [Moles/Vol] 103 mmol/L Normal 98-108 [facility] Comment on above: Performed By: #### L 500.4050, L501.7900, L100.0100 #### [facility] [address] [place], [address] CO2 [Moles/Vol] 24.6 mmol/L Normal 21.0-32.0 [facility] Comment on above: Performed By: #### L 500.4050, L501.7900, L100.0100 #### [facility] [address] [place], [address] Creatinine [Mass/Vol] 0.77 mg/dL Normal 0.70-1.[address] [facility] Comment on above: Performed By: #### L 500.4050, L501.7900, L100.0100 #### [facility] [address] [place], [address] GAP 12 Normal 5-15 [facility] Comment on above: Performed By: #### L 500.4050, L501.7900, L100.0100 #### [facility] [address] [place], [address] GFR/1.73 sq M.predicted among non-blacks MDRD (S/P/Bld) [Vol rate/Area] 91 mL/min/{1.73_m2} Normal >60 [facility] Comment on above: Result Comment: mL/m in/1.73m2 CKD-EPI Creatinine Equation (2020) Performed By: #### L 500.4050, L501.7900, L100.0100 #### [facility] [address] [place], [address] Globulin (S) [Mass/Vol] 2.8 g/dL Normal 2.2-4.2 [facility] Comment on above: Performed By: #### L 500.4050, L501.7900, L100.0100 #### [facility] [address] [place], [address] Glucose [Mass/Vol] 92 mg/dL Normal 70-99 [facility] Comment on above: Performed By: #### L 500.4050, L501.7900, L100.0100 #### [facility] [address] [place], [address] Potassium [Moles/Vol] 4.1 mmol/L Normal 3.3-5.[address] [facility] Comment on above: Performed By: #### L 500.4050, L501.7900, L100.0100 #### [facility] [address] [place], [address] Sodium [Moles/Vol] 139 mmol/L Normal 133-145 [facility] Comment on above: Performed By: #### L 500.4050, L501.7900, L100.0100 #### [facility] [address] [place], [address] T PROT 7.0 g/dL Normal 5.9-8.4 [facility] Comment on above: Performed By: #### L 500.4050, L501.7900, L100.0100 #### [facility] [address] [place], [address] Urea nitrogen [Mass/Vol] 12 mg/dL Normal 4-19 [facility] Comment on above: Performed By: #### L 500.4050, L501.7900, L100.0100 #### [facility] [address] [place], [address] Eosinophil percentageOrdered By: Luke Peters on 10-27-2024 Eosinophils/100 WBC (Bld) 7.8 % High 0-5 [facility] Erythrocyte distribution wid th ratioOrdered By: Luke Peters on 10-27-2024 Erythrocyte distribution width (RBC) [Ratio] 12.1 % 11.6-14.6 [facility] Erythrocyte distribution wid th standard deviationOrdered By: Luke Peters on 10-27-2024 Erythrocyte distribution width (RBC) [Entitic vol] 38.0 fL 35.1-43.9 [facility] GFR/1.73 sq M.predicted missael g non-blacks MDRD (S/P/Bld) [Vol rate/Area]Ordered By: Luke Peters on 10-27-2024 Estimated GFR (MDRD) Non-Af Amer 91 >60 [facility] Comment on above: mL/min/1.73m2 CKD-EP I Creatinine Equation (2020) Hematocrit Auto (Bld) [Volum e fraction]Ordered By: Luke Peters on 10-27-2024 Hematocrit (Bld) [Volume fraction] 41.8 % 37-47 [facility] Hemoglobin measurementOrdere d By: Luke Peters on 10-27-2024 Hemoglobin (Bld) [Mass/Vol] 14.3 g/dL 12.0-15.0 [facility] Immature granulocytes/100 WB C Auto (Bld)Ordered By: Luke Peters on 10-27-2024 Immature granulocytes/100 WBC (Bld) 0.300 % 0.0-0.9 [facility] Comment on above: IG% - Immature Granu locytes (promyelocytes, myelocytes and metamyelocytes) > 1% indicates that a LEFT SHIFT is Present. Laboratory - Chemistry and C hemistry - challengeOrdered By: Luke Peters on 10-27-2024 AST [Catalytic activity/Vol] 17 U/L <32 [facility] Lymphocytes Auto (Unsp spec) [#/Vol]Ordered By: Luke Peters on 10-27-2024 Lymphocytes (Bld) [#/Vol] 1.47 10*3/uL 0.83-4.51 [facility] Lymphocytes/100 WBC Auto (Un sp spec)Ordered By: Luke Pteers on 10-27-2024 Lymphocytes/100 WBC (Bld) 44.1 % High 19-41 [facility] MCV (mean corpuscular volume ) determinationOrdered By: Luke Peters on 10-27-2024 MCV (RBC) [Entitic vol] 85.5 fL 81-99 [facility] Mean corpuscular hemoglobin (MCH) determinationOrdered By: Luke Peters on 10-27-2024 MCH (RBC) [Entitic mass] 29.2 pg 27.0-32.0 [facility] Mean corpuscular hemoglobin concentration (MCHC) determinationOrdered By: Luke Peters on 10-27-2024 MCHC (RBC) [Mass/Vol] 34.2 g/dL 32-[address] [facility] Mean platelet volume determi nationOrdered By: Luke Peters on 10-27-2024 Platelet mean volume (Bld) [Entitic vol] 9.5 fL 6.2-12.0 [facility] Monocyte percentageOrdered B y: Luke Peters on 10-27-2024 Monocytes/100 WBC (Bld) 9.9 % 0-10 [facility] Neutrophil percentageOrdered By: Luke Peters on 10-27-2024 Neutrophils/100 WBC (Bld) 35.8 % Low 47-70 [facility] Nucleated red blood cell per centageOrdered By: Luke Peters on 10-27-2024 Nucleated RBC/100 WBC (Bld) [Ratio] 0 % 0-5 [facility] Platelet countOrdered By: Vincent Peters on 10-27-2024 Platelets (Bld) [#/Vol] 303 10*3/uL 150-450 [facility] Potassium (Unsp spec) [Mass/ Vol]Ordered By: Luke Peters on 10-27-2024 Potassium [Moles/Vol] 4.1 mmol/L 3.3-5.[address] [facility] RBC Auto (Bld) [#/Vol]Ordere d By: Luke Peters on 10-27-2024 RBC (Bld) [#/Vol] 4.89 10*6/uL 4.2-5.4 [facility] Serum creatinine measurement (mass/volume)Ordered By: Luke Peters on 10-27-2024 Creatinine [Mass/Vol] 0.77 mg/dL 0.70-1.[address] [facility] Serum globulin measurementOr dered By: Luke Peters on 10-27-2024 Globulin (S) [Mass/Vol] 2.8 g/dL 2.2-4.2 [facility] Serum glucose measurement (m ass/volume)Ordered By: Luke Peters on 10-27-2024 Glucose [Mass/Vol] 92 mg/dL 70-99 [facility] Serum or plasma alanine enciso otransferase (ALT) measurementOrdered By: Luke Peters on 10-27-2024 ALT [Catalytic activity/Vol] 15 U/L <35 [facility] Serum or plasma albumin malena urement (mass/volume)Ordered By: Luke Peters on 10-27-2024 Albumin [Mass/Vol] 4.1 g/dL 3.5-5.0 [facility] Serum or plasma albumin/glob ulin mass ratioOrdered By: Luke Peters on 10-27-2024 Albumin/Globulin [Mass ratio] 1.5 {ratio} 0.9-2.4 [facility] Serum or plasma alkaline lizzy sphatase measurementOrdered By: Luke Peters on 10-27-2024 ALP [Catalytic activity/Vol] 81 U/L 35-104 [facility] Serum or plasma calcium malena urement (mass/volume)Ordered By: Luke Peters on 10-27-2024 Calcium [Mass/Vol] 9.2 mg/dL 7.6-11.0 [facility] Serum or plasma urea nitroge n measurement (mass/volume)Ordered By: Luke Peters on 10-27-2024 Urea nitrogen [Mass/Vol] 12 mg/dL 4-19 [facility] Sodium levelOrdered By: Odell Peters on 10-27-2024 Sodium [Moles/Vol] 139 mmol/L 133-145 [facility] Total proteinOrdered By: Rivas Peters on 10-27-2024 Protein [Mass/Vol] 7.0 g/dL 5.9-8.4 [facility] White blood cell (WBC) count Ordered By: Luke Peters on 10-27-2024 WBC (Bld) [#/Vol] 3.3 10*3/uL Low 4.4-11.0 [facility] carBAMazepine [Mass/Vol]Orde red By: Luke Peters on 10-27-2024 Carbamazepine (Tegretol) Level 7.7 ug/mL 4.0-12.0 [facility] Absolute lymphocyte countOrd ered By: Luke Peters on 10-22-2023 Lymphocytes Auto (Unsp spec) [#/Vol] 1.60 10*3/uL 0.83-4.51 [facility] Automated lymphocyte count a s percentage of total leukocytesOrdered By: Luke Peters on 10-22-2023 Lymphocytes/100 WBC Auto (Unsp spec) 37.8 % 19-41 [facility] Basophil percentageOrdered B y: Luke Peters on 10-22-2023 Basophils/100 WBC (Bld) 2.4 % 0-1 [facility] Bilirubin [Mass/Vol] 0.50 mg/dL 0.20-1.00 [facility] Comment on above: For patients on eltr ombopag therapy, use of Dimension [place] TBIL is not recommended. Chloride [Moles/Vol] 106 mmol/L 98-107 [facility] Eosinophils/100 WBC (Bld) 10.2 % 0-5 [facility] Glucose [Mass/Vol] 91 mg/dL 74-106 [facility] Hemoglobin (Bld) [Mass/Vol] 14.3 g/dL 12.0-15.0 [facility] Monocytes/100 WBC (Bld) 10.6 % 0-10 [facility] Neutrophils (Bld) [#/Vol] 1.6 10*3/uL 2.0-7.7 [facility] Neutrophils/100 WBC (Bld) 38.8 % 47-70 [facility] Potassium [Moles/Vol] 3.9 mmol/L 3.5-5.[address] [facility] Protein [Mass/Vol] 7.3 g/dL 6.4-8.2 [facility] Sodium [Moles/Vol] 137 mmol/L 136-145 [facility] WBC (Bld) [#/Vol] 4.2 10*3/uL 4.4-11.0 [facility] Determination of erythrocyte mean corpuscular volume (MCV)Ordered By: Luke Peters on 10-22-2023 MCV (RBC) [Entitic vol] 87.0 fL 81-99 [facility] Erythrocyte distribution wid th ratioOrdered By: Luke Peters on 10-22-2023 Erythrocyte distribution width (RBC) [Ratio] 12.3 % 11.6-14.6 [facility] Erythrocyte distribution wid th standard deviationOrdered By: Luke Peters on 10-22-2023 Erythrocyte distribution width (RBC) [Entitic vol] 39.4 fL 35.1-43.9 [facility] Hematocrit Auto (Bld) [Volum e fraction]Ordered By: Luke Peters on 10-22-2023 Hematocrit (Bld) [Volume fraction] 42.3 % 37-47 [facility] Immature granulocytes/100 WB C Auto (Bld)Ordered By: Luke Peters on 10-22-2023 Immature granulocytes/100 WBC (Bld) 0.200 % 0.0-0.9 [facility] Comment on above: IG% - Immature Granu locytes (promyelocytes, myelocytes and metamyelocytes) > 1% indicates that a LEFT SHIFT is Present. Laboratory - Chemistry and C hemistry - challengeOrdered By: Luke Peters on 10-22-2023 Albumin/Globulin [Mass ratio] 1.0 {ratio} 0.9-2.4 [facility] ALP [Catalytic activity/Vol] 81 U/L 45-117 [facility] ALT [Catalytic activity/Vol] 22 U/L 13-56 [facility] CO2 [Moles/Vol] 29.0 mmol/L 21.0-32.0 [facility] Globulin (S) [Mass/Vol] 3.7 g/dL 2.2-4.2 [facility] Urea nitrogen/Creatinine [Mass ratio] 22.9 mg/mg 10-20 [facility] Laboratory - Hematology and Cell countsOrdered By: Luke Peters on 10-22-2023 MCH (RBC) [Entitic mass] 29.4 pg 27.0-32.0 [facility] MCHC (RBC) [Mass/Vol] 33.8 g/dL 32-[address] [facility] Nucleated RBC/100 WBC (Bld) [Ratio] 0 % 0-5 [facility] Platelet mean volume (Bld) [Entitic vol] 9.4 fL 6.2-12.0 [facility] Platelets (Bld) [#/Vol] 305 10*3/uL 150-450 [facility] No Panel InformationOrdered By: Luke Peters on 10-22-2023 Carbamazepine (Tegretol) Level 6.7 ug/mL 4.0-12.0 [facility] Estimated GFR (MDRD) Amer 105 mL/min >60 [facility] Comment on above: GFR Calc Estimated GFR (MDRD) Non-Af Amer 87 mL/min >60 [facility] Comment on above: Non- GFR Calc RBC Auto (Bld) [#/Vol]Ordere d By: Luke Peters on 10-22-2023 RBC (Bld) [#/Vol] 4.86 10*6/uL 4.2-5.4 [facility] Serum or plasma calcium malena urement (mass/volume)Ordered By: Luke Peters on 10-22-2023 Calcium [Mass/Vol] 9.2 mg/dL 8.5-10.1 [facility] Serum or plasma creatinine m easurement (mass/volume)Ordered By: Luke Peters on 10-22-2023 Creatinine [Mass/Vol] 0.74 mg/dL 0.55-1.[address] [facility] Comment on above: The validity of the calculated GFR & GFRAA in patients over 70 years has not been determined. Clinical correlation is essential. Serum or plasma urea nitroge n measurement (mass/volume)Ordered By: Luke Peters on 10-22-2023 Urea nitrogen [Mass/Vol] 17 mg/dL 7-18 [facility] Thin prep Papanicolaou smear with manual screeningOrdered By: Luke Peters on 10-22-2023 Thin prep Papanicolaou smear with manual screening 3.6 g/dL 3.2-5.0 [facility] Thin prep Papanicolaou smear with manual screening 14 U/L 15-37 [facility] Thin prep Papanicolaou smear with manual screening 2 5-15 [facility] Basophil percentageOrdered B y: Taylor Dsouza on 03-15-2023 Cholesterol [Mass/Vol] 312 mg/dL <200 [facility] Comment on above: <200 mg/dL Desirable 200-240 mg/dL Borderline >240 mg/dL High Risk Triglyceride [Mass/Vol] 79 mg/dL <199 [facility] Comment on above: The drugs N-Acetylcy steine and Metamizole may falsely depress this assay.Serum Triglycerides Reference Interval Normal <150 mg/dL Borderline high 150 - 199 mg/dL High 200 - 499 mg/dL Very High > or = 500 mg/dL Serum or plasma cholesterol in HDL measurement (mass/volume)Ordered By: Taylor Dsouza on 03-15-2023 Cholesterol in HDL [Mass/Vol] 97 mg/dL >40 [facility] Comment on above: The drugs N-Acetylcy steine and Metamizole may falsely depress this assay. Reference Range HDL <40 mg/dL Low HDL Cholesterol HDL >or= 60 mg/dL High HDL Cholesterol Serum or plasma cholesterol in VLDL measurement (mass/volume)Ordered By: Taylor Dsouza on 03-15-2023 Cholesterol in VLDL [Mass/Vol] 16 mg/dL 5-40 [facility] Serum or plasma low density lipoprotein (LDL) cholesterol measurement (mass/volume)Ordered By: Taylor Dsouza on 03-15-2023 Cholesterol in LDL [Mass/Vol] 199 mg/dL 0-130 [facility] Absolute lymphocyte countOrd ered By: Taylor Dsouza on 09-03-2022 Lymphocytes Auto (Unsp spec) [#/Vol] 2.11 10*3/uL 0.83-4.51 [facility] Basophil percentageOrdered B y: Taylor Dsouza on 09-03-2022 Basophils/100 WBC (Bld) 1.9 % 0-1 [facility] Bilirubin [Mass/Vol] 0.40 mg/dL 0.20-1.00 [facility] Comment on above: For patients on eltr ombopag therapy, use of Dimension [place] TBIL is not recommended. Chloride [Moles/Vol] 105 mmol/L 98-107 [facility] Cholesterol [Mass/Vol] 300 mg/dL <200 [facility] Comment on above: <200 mg/dL Desirable 200-240 mg/dL Borderline >240 mg/dL High Risk Eosinophils/100 WBC (Bld) 9.9 % 0-5 [facility] Glucose [Mass/Vol] 93 mg/dL 74-106 [facility] Neutrophils (Bld) [#/Vol] 2.4 10*3/uL 2.0-7.7 [facility] Neutrophils/100 WBC (Bld) 41.6 % 47-70 [facility] Potassium [Moles/Vol] 4.0 mmol/L 3.5-5.[address] [facility] Protein [Mass/Vol] 7.4 g/dL 6.4-8.2 [facility] Sodium [Moles/Vol] 138 mmol/L 136-145 [facility] Triglyceride [Mass/Vol] 66 mg/dL <199 [facility] Comment on above: The drugs N-Acetylcy steine and Metamizole may falsely depress this assay.Serum Triglycerides Reference Interval Normal <150 mg/dL Borderline high 150 - 199 mg/dL High 200 - 499 mg/dL Very High > or = 500 mg/dL WBC (Bld) [#/Vol] 5.8 10*3/uL 4.4-11.0 [facility] Blood erythrocytes count (nu mber/volume)Ordered By: Taylor Dsouza on 09-03-2022 RBC (Bld) [#/Vol] 5.07 10*6/uL 4.2-5.4 [facility] Blood hemoglobin measurement (mass/volume)Ordered By: Taylor Dsouza on 09-03-2022 Hemoglobin (Bld) [Mass/Vol] 14.8 g/dL 12.0-15.0 [facility] Blood lymphocytes/100 leukoc ytesOrdered By: Taylor Dsouza on 09-03-2022 Lymphocytes/100 WBC (Bld) 36.5 % 19-41 [facility] Blood monocytes/100 leukocyt esOrdered By: Taylor Dsouza on 09-03-2022 Monocytes/100 WBC (Bld) 9.9 % 0-10 [facility] Blood platelet mean volumeOr dered By: Taylor Dsouza on 09-03-2022 Platelet mean volume (Bld) [Entitic vol] 9.5 fL 6.2-12.0 [facility] Determination of erythrocyte mean corpuscular volume (MCV)Ordered By: Taylor Dsouza on 09-03-2022 MCV (RBC) [Entitic vol] 88.0 fL 81-99 [facility] Hematocrit Auto (Bld) [Volum e fraction]Ordered By: Taylor Dsouza on 09-03-2022 Hematocrit (Bld) [Volume fraction] 44.6 % 37-47 [facility] Laboratory - Chemistry and C hemistry - challengeOrdered By: Taylor Dsouza on 09-03-2022 ALP [Catalytic activity/Vol] 83 U/L 45-117 [facility] ALT [Catalytic activity/Vol] 23 U/L 13-56 [facility] CO2 [Moles/Vol] 31.0 mmol/L 21.0-32.0 [facility] Globulin (S) [Mass/Vol] 3.9 g/dL 2.2-4.2 [facility] Urea nitrogen/Creatinine [Mass ratio] 18.8 mg/mg 10-20 [facility] Laboratory - Hematology and Cell countsOrdered By: Taylor Dsouza on 09-03-2022 Erythrocyte distribution width (RBC) [Entitic vol] 39.5 fL 35.1-43.9 [facility] Erythrocyte distribution width (RBC) [Ratio] 12.3 % 11.6-14.6 [facility] Immature granulocytes/100 WBC (Bld) 0.200 % 0.0-0.9 [facility] Comment on above: IG% - Immature Granu locytes (promyelocytes, myelocytes and metamyelocytes) > 1% indicates that a LEFT SHIFT is Present. MCH (RBC) [Entitic mass] 29.2 pg 27.0-32.0 [facility] Nucleated RBC/100 WBC (Bld) [Ratio] 0 % 0-5 [facility] MCHC Auto (RBC) [Mass/Vol]Or dered By: Taylor Dsouza on 09-03-2022 MCHC (RBC) [Mass/Vol] 33.2 g/dL 32-[address] [facility] No Panel InformationOrdered By: Taylor Dsouza on 09-03-2022 Estimated GFR (MDRD) Amer 114 mL/min >60 [facility] Comment on above: GFR Calc Estimated GFR (MDRD) Non-Af Amer 94 mL/min >60 [facility] Comment on above: Non- GFR Calc Miscellaneous Test See comment [facility] Comment on above: TEST RESULT LIMITSCa rbamazepine(Tegretol), S 7.2 ug/mL 4.0-12.0 In conjunction with other antiepileptic drugs Therapeutic 4.0 - 8.0 Toxicity 9.0 - 12.0 Carbamazepine alone Therapeutic 8.0 - 12.0 Detection Limit = 2.0 <2.0 indicated None Detected ____ TESTING PERFORMED AT [facility]. ORIGINAL REPORT ON FILE IN LAB CONTAINS ADDITIONAL TEST SITE INFORMATION. Platelets bldOrdered By: Michael Dsouza on 09-03-2022 Platelets (Bld) [#/Vol] 346 10*3/uL 150-450 [facility] Serum or plasma albumin malena urement (mass/volume)Ordered By: Taylor Dsouza on 09-03-2022 Albumin [Mass/Vol] 3.5 g/dL 3.2-5.0 [facility] Serum or plasma albumin/glob ulin mass ratioOrdered By: Taylor Dsouza on 09-03-2022 Albumin/Globulin [Mass ratio] 0.9 {ratio} 0.9-2.4 [facility] Serum or plasma calcium malena urement (mass/volume)Ordered By: Taylor Dsouza on 09-03-2022 Calcium [Mass/Vol] 9.0 mg/dL 8.5-10.1 [facility] Serum or plasma cholesterol in HDL measurement (mass/volume)Ordered By: Taylor Dsouza on 09-03-2022 Cholesterol in HDL [Mass/Vol] 94 mg/dL >40 [facility] Comment on above: The drugs N-Acetylcy steine and Metamizole may falsely depress this assay. Reference Range HDL <40 mg/dL Low HDL Cholesterol HDL >or= 60 mg/dL High HDL Cholesterol Serum or plasma cholesterol in VLDL measurement (mass/volume)Ordered By: Taylor Dsozua on 09-03-2022 Cholesterol in VLDL [Mass/Vol] 13 mg/dL 5-40 [facility] Serum or plasma creatinine m easurement (mass/volume)Ordered By: Taylor Dsouza on 09-03-2022 Creatinine [Mass/Vol] 0.69 mg/dL 0.55-1.[address] [facility] Comment on above: The validity of the calculated GFR & GFRAA in patients over 70 years has not been determined. Clinical correlation is essential. Serum or plasma low density lipoprotein (LDL) cholesterol measurement (mass/volume)Ordered By: Taylor Dsouza on 09-03-2022 Cholesterol in LDL [Mass/Vol] 193 mg/dL 0-130 [facility] Serum or plasma urea nitroge n measurement (mass/volume)Ordered By: Taylor Dsouza on 09-03-2022 Urea nitrogen [Mass/Vol] 13 mg/dL 7-18 [facility] Thin prep Papanicolaou smear with manual screeningOrdered By: Taylor Dsouza on 09-03-2022 Thin prep Papanicolaou smear with manual screening 14 U/L 15-37 [facility] Thin prep Papanicolaou smear with manual screening 2 5-15 [facility] Absolute lymphocyte counton 03-13-2022 Lymphocytes Auto (Unsp spec) [#/Vol] 2.04 10*3/uL 0.83-4.51 [facility] Work Phone: Basophil percentageon 03-13- 2021 Basophils/100 WBC (Bld) 1.7 % 0-1 [facility] Work Phone: Bilirubin [Mass/Vol] 0.40 mg/dL 0.20-1.00 [facility] Work Phone: Comment on above: For patients on eltr ombopag therapy, use of Dimension [place] TBIL is not recommended. Chloride [Moles/Vol] 105 mmol/L 98-107 [facility] Work Phone: Cholesterol [Mass/Vol] 283 mg/dL <200 [facility] Work Phone: Comment on above: <200 mg/dL Desirable 200-240 mg/dL Borderline >240 mg/dL High Risk Eosinophils/100 WBC (Bld) 9.7 % 0-5 [facility] Work Phone: Glucose [Mass/Vol] 96 mg/dL 74-106 [facility] Work Phone: Neutrophils (Bld) [#/Vol] 1.7 10*3/uL 2.0-7.7 [facility] Work Phone: Neutrophils/100 WBC (Bld) 36.9 % 47-70 [facility] Work Phone: Potassium [Moles/Vol] 4.0 mmol/L 3.5-5.[address] [facility] Work Phone: Protein [Mass/Vol] 7.1 g/dL 6.4-8.2 [facility] Work Phone: Sodium [Moles/Vol] 139 mmol/L 136-145 [facility] Work Phone: Triglyceride [Mass/Vol] 72 mg/dL <199 [facility] Work Phone: Comment on above: The drugs N-Acetylcy steine and Metamizole may falsely depress this assay.Serum Triglycerides Reference Interval Normal <150 mg/dL Borderline high 150 - 199 mg/dL High 200 - 499 mg/dL Very High > or = 500 mg/dL WBC (Bld) [#/Vol] 4.6 10*3/uL 4.4-11.0 [facility] Work Phone: Blood erythrocytes count (nu mber/volume)on 03-13-2022 RBC (Bld) [#/Vol] 4.87 10*6/uL 4.2-5.4 [facility]: Blood hemoglobin measurement (mass/volume)on 03-13-2022 Hemoglobin (Bld) [Mass/Vol] 14.2 g/dL 12.0-15.0 [facility] Work Phone: Blood lymphocytes/100 leukoc yteson 03-13-2022 Lymphocytes/100 WBC (Bld) 44.0 % 19-41 [facility] Work Phone: Blood monocytes/100 leukocyt eson 03-13-2022 Monocytes/100 WBC (Bld) 7.5 % 0-10 [facility] Work Phone: Blood platelet mean volumeon 03-13-2022 Platelet mean volume (Bld) [Entitic vol] 9.6 fL 6.2-12.0 [facility] Work Phone: Determination of erythrocyte mean corpuscular volume (MCV)on 03-13-2022 MCV (RBC) [Entitic vol] 88.1 fL 81-99 [facility] Work Phone: Hematocrit Auto (Bld) [Volum e fraction]on 03-13-2022 Hematocrit (Bld) [Volume fraction] 42.9 % 37-47 [facility] Work Phone: Laboratory - Chemistry and C hemistry - challengeon 03-13-2022 ALP [Catalytic activity/Vol] 75 U/L 45-117 [facility] Work Phone: ALT [Catalytic activity/Vol] 22 U/L 13-56 [facility] Work Phone: CO2 [Moles/Vol] 28.0 mmol/L 21.0-32.0 [facility] Work Phone: Globulin (S) [Mass/Vol] 3.7 g/dL 2.2-4.2 [facility] Work Phone: Urea nitrogen/Creatinine [Mass ratio] 24.7 mg/mg 10-20 [facility] Work Phone: Laboratory - Hematology and Cell countson 03-13-2022 Erythrocyte distribution width (RBC) [Entitic vol] 39.9 fL 35.1-43.9 [facility] Work Phone: Erythrocyte distribution width (RBC) [Ratio] 12.3 % 11.6-14.6 [facility] Work Phone: Immature granulocytes/100 WBC (Bld) 0.200 % 0.0-0.9 [facility] Work Phone: Comment on above: IG% - Immature Granu locytes (promyelocytes, myelocytes and metamyelocytes) > 1% indicates that a LEFT SHIFT is Present. MCH (RBC) [Entitic mass] 29.2 pg 27.0-32.0 [facility] Work Phone: Nucleated RBC/100 WBC (Bld) [Ratio] 0 % 0-5 [facility] Work Phone: MCHC Auto (RBC) [Mass/Vol]on 03-13-2022 MCHC (RBC) [Mass/Vol] 33.1 g/dL 32-36 [facility]: No Panel Informationon 03-13 Estimated GFR (MDRD) Amer 107 mL/min >60 [facility] Work Phone: Comment on above: GFR Calc Estimated GFR (MDRD) Non-Af Amer 89 mL/min >60 [facility] Work Phone: Comment on above: Non- GFR Calc Thyroid Stimulating Hormone (TSH) 1.58 uIU/mL 0.358-3.74 [facility] Work Phone: Platelets bldon 03-13-2022 Platelets (Bld) [#/Vol] 317 10*3/uL 150-450 [facility] Work Phone: Serum or plasma albumin malena urement (mass/volume)on 03-13-2022 Albumin [Mass/Vol] 3.4 g/dL 3.2-5.0 [facility] Work Phone: Serum or plasma albumin/glob ulin mass ratioon 03-13-2022 Albumin/Globulin [Mass ratio] 0.9 {ratio} 0.9-2.4 [facility] Work Phone: Serum or plasma calcium malena urement (mass/volume)on 03-13-2022 Calcium [Mass/Vol] 8.8 mg/dL 8.5-10.1 [facility] Work Phone: Serum or plasma cholesterol in HDL measurement (mass/volume)on 03-13-2022 Cholesterol in HDL [Mass/Vol] 82 mg/dL >40 [facility] Work Phone: Comment on above: The drugs N-Acetylcy steine and Metamizole may falsely depress this assay. Reference Range HDL <40 mg/dL Low HDL Cholesterol HDL >or= 60 mg/dL High HDL Cholesterol Serum or plasma cholesterol in VLDL measurement (mass/volume)on 03-13-2022 Cholesterol in VLDL [Mass/Vol] 14 mg/dL 5-40 [facility] Work Phone: Serum or plasma creatinine m easurement (mass/volume)on 03-13-2022 Creatinine [Mass/Vol] 0.73 mg/dL 0.55-1.[address] [facility] Work Phone: Comment on above: The validity of the calculated GFR & GFRAA in patients over 70 years has not been determined. Clinical correlation is essential. Serum or plasma low density lipoprotein (LDL) cholesterol measurement (mass/volume)on 03-13-2022 Cholesterol in LDL [Mass/Vol] 187 mg/dL 0-130 [facility] Work Phone: Serum or plasma urea nitroge n measurement (mass/volume)on 03-13-2022 Urea nitrogen [Mass/Vol] 18 mg/dL 7-18 [facility] Work Phone: Thin prep Papanicolaou smear with manual screeningon 03-13-2022 Thin prep Papanicolaou smear with manual screening 13 U/L 15-37 [facility] Work Phone: Thin prep Papanicolaou smear with manual screening 6 5-15 [facility] Work Phone: Whole blood hemoglobin A1c/t otal hemoglobin ratio (mass fraction)on 03-13-2022 HbA1c (Bld) [Mass fraction] 5.4 % 3.8-5.6 [facility] Work Phone: Comment on above: Normal < 5.7 % Predi abetic 5.7 - 6.4 % Diabetic >or= 6.5 % Please note range changes. Encounters Encounter Date Encounter Type Care Provider Facility Start: 05-17-2025 ambulatory Brittany Ramirez Facility:[facility] Start: 04-27-2025 End: 04-27-2025 ambulatory Brittany Ramirez MD Work Phone: -Laboratory Start: 04-27-2025 End: 04-27-[address] Brittany Ramirez MD -Laboratory Work Phone: Start: 04-27-2025 End: 04-27-2025 ambulatory Brittany Ramirez Facility:[facility] Start: 12-12-2024 End: 12-12-2024 ambulatory Paco Holland Facility:[facility] Start: 11-28-2024 End: 11-28-2024 ambulatory Luke Peters Facility:[facility] Start: 11-12-2024 ambulatory [facility] Start: 10-27-2024 End: 10-27-2024 ambulatory Brittany Ramirez MD Work Phone: [facility] Work Phone: Start: 10-27-2024 End: 10-27-[address] Luke Peters MD -Laboratory Work Phone: Start: 10-27-2024 End: 10-27-2024 ambulatory Luke Fran Facility:[facility] Start: 10-22-2023 End: 10-22-2023 ambulatory [facility] Work Phone: Start: 10-22-2023 End: 10-22-2023 Patient encounter procedure [facility]-Laboratory Work Phone: Start: 03-15-2023 End: 03-15-2023 ambulatory [facility] Work Phone: Start: 03-15-2023 End: 03-15-2023 Patient encounter procedure [facility]-Laboratory Work Phone: Start: 09-03-2022 End: 09-03-2022 ambulatory [facility] Work Phone: Start: 09-03-2022 End: 09-03-2022 Patient encounter procedure [facility]-Laboratory Start: 04-05-2022 End: 04-05-2022 Patient encounter procedure [facility]Outpatient [facility] Start: 03-13-2022 End: 03-13-2022 Patient encounter procedure [facility]-Laboratory Procedures Date Procedure Procedure Detail Performing Clinician Start: 04-27-2025 Vitamin D, 25-hydrox y measurement Brittany Ramirez MD Work Phone: Comment on above: Vitamin D StatusDefi ciency: <20 ng/mL (50nmol/L)Insufficiency: 20-30 ng/mL (50-75 nmol/L)Sufficiency: 30-100 ng/mL (75-250 nmol/L)Toxicity: >100 ng/mL (>250 nmol/L) Start: 04-05-2022 Screening mammography Payers Date Payer Category Payer Self-pay [id number] 2008 Unknown [id number] Unknown [id number] Unknown [id number] 2.16.8 [id number] Unknown [id number] 2.16.8 [id number] Unknown [id number] 2.16.8 [id number] Unknown [id number] 2.16.8 [id number] Unknown [id number] 2.16.8 [id number] Unknown [id number] 2.16.8 [id number] Unknown [id number] 2.16.8 [id number] Social History Date Type Detail Facility Tobacco smoking stat [facility] Unknown if ever smoked [facility] Work Phone: Start: 1970 Sex Assigned At Female [facility] Tobacco smoking stat [facility] Unknown if ever smoked [facility] Work Phone: Start: 11-08-2024 Sex Female (finding) [facility] Start: 11-28-2024 Tobacco smoking stat [facility] Never smoked tobacco (finding) [facility] Evaluation note Note Date & Type Note Facility Evaluation note No assessment information availa ble [facility] Work Phone: Reason for referral (narrative) Note Date & Type Note Facility Reason for referral (narrative) No reason for referral information available [facility] Work Phone: Chief Complaint and Reason for Visit Chief Complaint SCREENING Chief Complaint 2 ORDERING DOCTORS Family History No Family History Records Found Relationship Condition Age at Onset Recorded Date/T alber Not Specified Cardiac disease Unknown mother Malignant neoplasm of breast Unknown Summary Purpose Advance Directives No Advanced Directives Records Found [...] Stover MD Family Provider Active Taylor Dsouza DO Primary Care Provider Active Team Status: Inactive Member Role Status Dates Taylor Dsouza DO Primary Care Provi owen, Attending Provider, Referring Provider Active Team Status: Inactive Member Role Status Dates Taylor Dsouza DO Primary Care Provider Active Dr. Luke Peters MD Attending Provider, Referring Pro vider Active Team Status: Active Member Role Status Beatriz Ramirez MD Primary Care Provider Active Team Status: Inactive Member Role Status Beatriz Ramirez MD Primary Care Provider Active St art: October 27, 2024 End: October 27, 2024 Dr. Luke Peters MD Attending Provider Active S tart: October 27, 2024 End: October 27, 2024 Dr. Luke Peters MD Referring Provider Active S tart: October 27, 2024 End: October 27, 2024 Team Status: Active Member Role/Relationship Status Beatriz Ramirez MD Primary Care Provider Active Team Status: Inactive Member Role/Relationship Status Beatriz Ramirez MD Primary Care Provider Active St art: April 27, 2025 End: April 27, 2025 Brittany Ramirez MD Attending Provider Active Start : April 27, 2025 End: April 27, 2025 Brittany Ramirez MD Referring Provider Active Start : April 27, 2025 End: April 27, 2025 INFORMATION SOURCE (unrecogn ized section and content) DATE CREATED AUTHOR 05/14/2025 [facility] FOR RECORDS PERTAINING TO PATIENTS WHO [...] BE BASED ON THE PRIMARY CLINICAL RECORDS. [facility]. provides no warranty or guarantee of the accuracy or completeness of information in this document.
--- NOTE | 2025-05-17 07:45 | BI_ITS ---
EXAM: SCRN MAMM (CAD)W/RAFAELA BILAT DATE: 05/17/2025 CLINICAL HISTORY: F, Age 54 y/o , SCREENING FOR BREAST CANCER TECHNIQUE: Procedure Code: [id number] Modality: MG Procedure: SCRN MAMM (CAD)W/RAFAELA BILAT COMPARISON: Prior exam(s) dated 05/02/2024, 04/06/2023, 04/05/2022. FINDINGS: TISSUE DENSITY: The breasts are heterogeneously dense, which may obscure small masses. The mammogram demonstrates that the patient has dense breasts. Supplemental screening with whole breast ultrasound or MRI may be considered for further evaluation. Bilateral Breast Mammographic Findings: No significant masses, calcifications or other abnormalities are identified. BI/SCRN MAMM (CAD)W/RAFAELA BILAT IMPRESSION: There is no mammographic evidence of malignancy. OVERALL FINAL ASSESSMENT BI-RADS 1: NEGATIVE. RECOMMENDATION: Routine annual follow-up in 1 Year Additional Recommendation none A letter with findings and recommendations will be mailed to the patient. Reading Location: [id number]
== END | disposition home or self-care (01) ==
LOC: OPBI 07:37
PROVIDERS: PCP Family Medicine
DX: Z12.31 Encounter for screening mammogram for malignant neoplasm of breast (principal)
CPT/HCPCS: 77063; 77067